=== PATIENT | female | born 1960 | race Caucasian/White ===

== ENCOUNTER 2016-08-23 10:56 | Inpatient (IN) | payer OTHER ==
[~2016-08-23] VITALS: Ht 162.6 cm; Wt 72.7 kg
[~2016-08-23 10:56] MED LIST: ARIP15TA2; CLIN-73 PO; GABA600T; HIV MEDS; TRAM50TA2 PO; TRAZ100T15; TRUV; [UNRECOGNIZED DRUG - OTHER]
[2016-08-23] MEDS ORDERED: ONDANSETRON 4 MG INJ IV STA ×2 (11:11→15:20)
[2016-08-23] MEDS ORDERED: morphine 4 MG/ML VIAL IV STA (11:11)
[2016-08-23] MEDS ORDERED: SOD CHLORIDE 0.9% 1,000 ML IV STA (11:17)
--- NOTE | 2016-08-23 11:19 | ERA ---
ER Documentation Chief Complaint Date/Time DATE: 08/23/16 TIME: 11:15 Chief Complaint BROUGHT IN VIA PRIVATE AMBULANCE FROM [facility] DUE TO RIGHT WRIST INFECTION HPI This is a 55-year-old female history of HIV and AIDS with recent surgical intervention of an MRSA abscess to the volar aspect of the right wrist at [facility] on 04 August. The patient was readmitted for a foot issue on the at [facility]. Today the patient presents with 2 days of erythema warmth and tenderness to the volar aspect wound of the right wrist. She describes moderate pain that is worse to touch, throbbing. No fevers or chills chest pain or shortness of breath abdominal pain dysuria urgency or frequency. ROS All systems reviewed and are negative except as per history of present illness. Medications Home Meds Reported Medications Nystatin (Nystatin) 100,000 Unit/1 Ml Oral.susp, 2 ML PO QID, #60 ML 08/23/16 Emtricitabine/Tenofov Alafenam (Descovy 200-25 mg Tablet) 1 Each Tablet, 1 EACH PO DAILY, TAB 08/23/16 Darunavir/Cobicistat (Prezcobix 800 mg-150 mg Tablet) 1 Each Tablet, 1 EACH PO DAILY, TAB 08/23/16 Oxycodone Hcl* (IR) (Oxycodone Hcl*) 30 Mg Tablet, 30 MG PO QID Y for PAIN, TAB 08/23/16 Valsartan* (Diovan*) 320 Mg Tablet, 320 MG PO DAILY, TAB 08/23/16 Gabapentin* (Gabapentin*) 800 Mg Tablet, 800 MG PO TID, #90 TAB 08/23/16 Omeprazole* (Omeprazole*) 20 Mg Capsule.dr, 20 MG PO DAILY, #30 CAP 08/23/16 Atenolol* (Atenolol*) 100 Mg Tablet, 100 MG PO DAILY, #30 TAB 08/23/16 Cyclobenzaprine Hcl* (Cyclobenzaprine Hcl*) 10 Mg Tablet, 10 MG PO BID, #60 TAB 08/23/16 Discontinued Reported Medications Aripiprazole* (Abilify*) 15 Mg Tablet 02/19/10 Gabapentin* (Neurontin*) 600 Mg Tablet 02/19/10 Trazodone Hcl* (Trazodone Hcl*) 100 Mg Tablet 02/19/10 [Intelles] No Conflict Check 02/18/10 Emtricitabine-Tenofovir* (Truvada*) 1 Tab Tab 02/18/10 [Hiv Meds] No Conflict Check 02/16/10 Discontinued Scripts Tramadol HCl (Tramadol HCl) 50 Mg Tablet, 50 MG PO Q6, #10 TAB Prov:IVELISSE WILCOX MD 02/08/16 Clindamycin Hcl* (Clindamycin Hcl*) 300 Mg Capsule, 600 MG PO TID for 7 Days, CAP Prov:IVELISSE WILCOX MD 02/08/16 Allergies Allergies: Coded Allergies: Penicillins (Verified Allergy, Severe, CAN'T BREATH, 08/23/16) sumatriptan (Verified Allergy, Mild, ELEVATED BLOOD PRESSURE, 08/23/16) PMhx/Soc History of Surgery: Yes (appendectomy/hysterectomy/spinal surgery) Anesthesia Reaction: No Hx Neurological Disorder: No Hx Respiratory Disorders: No Hx Cardiac Disorders: No Hx Psychiatric Problems: Yes (bipolar disease) Hx Miscellaneous Medical Probl: Yes (HIV/AIDS, umbilical cellulitis, hepatitis A, B, C) Hx Alcohol Use: No Hx Tobacco Use: No FmHx Family History: No diabetes Physical Exam Vitals Vital Signs Date Time Temp Pulse Resp B/P Pulse Ox O2 Delivery O2 Flow Rate FiO2 08/23/16 13:57 66 18 119/80 100 Room Air 08/23/16 11:47 97.8 69 22 96/55 99 Room Air 08/23/16 11:32 Nasal Cannula 2 08/23/16 11:00 97.8 67 18 97/61 90 Physical Exam General: Well developed, well nourished, no acute distress Head: Normocephalic, atraumatic. Eyes: Pupils equally reactive, EOM intact ENT: Moist mucous membranes Neck: Supple, no lymphadenopathy Respiratory: Lungs clear bilaterally, no distress Cardiovascular: RRR, no murmurs, rubs, or gallops Abdominal: Soft, non-tender, non-distended, no peritoneal signs : Deferred MSK: No edema, no unilateral swelling, 5/5 strength, skin is documented below. Soft compartments, radial, median, ulnar nerves assessed and intact of the right upper extremity Neurologic: Alert and oriented, moving all extremities, normal speech, no focal weakness, no cerebellar signs Skin: Erythema warmth and tenderness noted to the wound of the right wrist, sutures intact Psych: Normal mood Result Diagram: 08/23/16 1200 08/23/16 1250 Results 24 hrs Laboratory Tests Test 08/23/16 12:00 08/23/16 12:50 08/23/16 13:50 White Blood Count 2.210^3/ul Red Blood Count 3.4110^6/ul Hemoglobin 9.4g/dl Hematocrit 30.7% Mean Corpuscular Volume 90.0fl Mean Corpuscular Hemoglobin 27.6pg Mean Corpuscular Hemoglobin Concent 30.6g/dl Red Cell Distribution Width 14.9% Platelet Count 33655^3/UL Mean Platelet Volume 11.7fl Neutrophils % 24.5% Lymphocytes % 58.2% Monocytes % 13.2% Eosinophils % 2.7% Basophils % 0.9% Nucleated Red Blood Cells % 0.0/100WBC Neutrophils # 0.510^3/ul Lymphocytes # 1.310^3/ul Monocytes # 0.310^3/ul Eosinophils # 0.110^3/ul Basophils # 0.010^3/ul Nucleated Red Blood Cells # 0.010^3/ul Prothrombin Time 13.3Sec Prothrombin Time Ratio 1.0 INR International Normalized Ratio 1.01 Activated Partial Thromboplast Time 25.2Sec Erythrocyte Sedimentation Rate 68mm/Hr Sodium Level 138mmol/L Potassium Level 3.9mmol/L Chloride Level 103mmol/L Carbon Dioxide Level 26mmol/L Anion Gap 13 Blood Urea Nitrogen 30mg/dl Creatinine 1.29mg/dl Glucose Level 89mg/dl Lactic Acid Level 0.8mmol/L 1.1mmol/L Calcium Level 8.3mg/dl Total Bilirubin 0.1mg/dl Direct Bilirubin 0.00mg/dl Indirect Bilirubin 0.1mg/dl Aspartate Amino Transf (AST/SGOT) 26IU/L Alanine Aminotransferase (ALT/SGPT) 26IU/L Alkaline Phosphatase 379IU/L C-Reactive Protein 1.5mg/dl Total Protein 7.6g/dl Albumin 3.2g/dl Globulin 4.40g/dl Albumin/Globulin Ratio 0.72 Current Medications Medications (Trade) Dose Ordered Sig/Deric Route PRN Reason Start Time Stop Time Status Last Admin Dose Admin Vancomycin HCl 250 ml @ 125 mls/hr ONCE ONCE IVPB 08/23/16 11:30 08/23/16 13:29 DC 08/23/16 13:25 Aztreonam (Azactam 1gm/NS (Pmx)) 50 ml @ 100 mls/hr ONCE ONCE IVPB 08/23/16 11:30 08/23/16 11:59 DC 08/23/16 13:13 Morphine Sulfate (morphine) 4 mg ONCE STAT IV 08/23/16 11:11 08/23/16 11:15 DC 08/23/16 12:46 Ondansetron HCl 4 mg 4 mg ONCE STAT IV 08/23/16 11:11 08/23/16 11:15 DC 08/23/16 12:45 Sodium Chloride (NS) 1,000 ml @ 1,000 mls/hr Q1H STAT IV 08/23/16 11:17 08/23/16 12:16 DC 08/23/16 12:46 Procedures/MDM EKG, MONITORS, & DIAGNOSTIC IMAGING: X-ray right wrist: IMPRESSION: Radiologist No visualized radiographic evidence of osteomyelitis. If there is clinical suspicion for osteomyelitis, further characterization with MRI or bone scan is recommended. RPTAT: AA EKG: I reviewed and interpreted a 12-lead EKG. Rhythm: Normal sinus rhythm Ectopy: None Intervals: No abnormalities ST segments: No elevations or depressions T waves: No contiguous inversions LAB INTERPRETATION: Leukopenia, anemia, elevated CRP, normal lactic acid MEDICAL DECISION MAKING: The patient has a history of AIDS. She now has clinical signs and symptoms consistent with cellulitis to the volar aspect of the right wrist secondary to the patient's recent MRSA abscess status post surgical intervention at [facility] on August 04. The patient has no evidence of sepsis at this time however given her immunocompromise state she may not exhibit these symptoms initially. For this reason I believe the patient will benefit from laboratory analysis, blood cultures, empiric antibiotics to cover MRSA and gram-negative bacteria. The patient has a penicillin allergy. She will be started on vancomycin and aztreonam. The patient was given 1 L of saline. Sepsis screening initiated. The patient had surgery at [facility], given continuity of care would benefit this patient I believe the patient would benefit from transfer to this facility. I will reach out to the patient's surgeon, Dr. Nash. I will attempt to transfer the patient back to [facility] for continuity of care. The patient is stable for transfer. ER COURSE: The patient does not meet sepsis criteria. The patient's CRP is elevated. X- ray imaging shows no evidence of osteomyelitis. Antibiotics provided. Pain control provided. It took approximately 3.5 hours to reach out to an orthopedic surgeon. We attempted to call [facility] but they could not accept the patient without having the accepting surgeon. I was able to speak to a colleague for Dr. Saad Lowery. He will notify Dr. Nash and feels that the patient can be stabilized and admitted to [facility]. Dr. Nash has privileges. A consult order was placed in the computer. I kept the patient and/or family informed of laboratory and diagnostic imaging results throughout the emergency room course. DISPOSITION PLAN: Medical surgical admission for management of postoperative cellulitis in an immunocompromised patient CONSULTATION: Accepting care team and consultations: I discussed the current laboratory data, diagnostic imaging and emergency care provided. Admitting team: Dr. Haddad Admitting team indication: Insurance directed Consulting services: Orthopedic surgeon Dr. Nash, colleague Dr. Lowery covering Departure Diagnosis: Primary Impression: Cellulitis of right upper arm Additional Impression: History of AIDS Condition: Stable JACKELYN HOUSTON MD Aug 23, 2016 11:19
[2016-08-23] MEDS ORDERED: AZTREONAM 1 GM/NS (PMX) 50 ML IVPB ONE (11:30)
[2016-08-23] MEDS ORDERED: VANCOMYCIN 1 GM (PMX) 250 ML IVPB ONE (11:30)
[2016-08-23 11:47] VITALS: TEMP 97.8
[2016-08-23 12:16] LABS: ADD SCAN DIFF NO
[2016-08-23 12:23] LABS: ABNORMAL IP MESSAGE 1; BASOPHILS % 0.9 % (0.0-2.0); EOSINOPHILS # 0.1 10^3/ul (0.0-0.5); EOSINOPHILS % 2.7 % (0.0-7.0); HEMATOCRIT 30.7 % (37.0-47.0); HEMOGLOBIN 9.4 g/dl (12.0-16.0); LYMPHOCYTES # 1.3 10^3/ul (0.8-2.9); LYMPHOCYTES % 58.2 % (15.0-51.0); MEAN CORPUSCULAR HEMOGLOBIN 27.6 pg (29.0-33.0); MEAN CORPUSCULAR HGB CONC 30.6 g/dl (32.0-37.0); MEAN PLATELET VOLUME 11.7 fl (7.4-10.4); MONOCYTE # 0.3 10^3/ul (0.3-0.9); MONOCYTES % 13.2 % (0.0-11.0); NEUTROPHIL # 0.5 10^3/ul (1.6-7.5); NEUTROPHILS % 24.5 % (39.0-77.0); PLATELET COUNT 203 10^3/UL (140-415); RED BLOOD COUNT 3.41 10^6/ul (4.20-5.40); RED CELL DISTRIBUTION WIDTH 14.9 % (11.5-14.5); WHITE BLOOD COUNT 2.2 10^3/ul (4.8-10.8)
[2016-08-23 12:32] LABS: INR 1.01; PROTIME 13.3 Sec (12.2-14.2)
[2016-08-23 12:33] LABS: PARTIAL THROMBOPLASTIN TIME 25.2 Sec (25.0-35.0)
[2016-08-23] MEDS ORDERED: CYCL-319 PO (12:36)
[2016-08-23] MEDS ORDERED: ATEN100T PO (12:39)
[2016-08-23] MEDS ORDERED: OMEP20CA16 PO (12:39)
[2016-08-23] MEDS ORDERED: GABA-528 PO (12:39)
[2016-08-23] MEDS ORDERED: OXYC30TA PO (12:40)
[2016-08-23] MEDS ORDERED: VALS320T11 PO (12:40)
[2016-08-23] MEDS ORDERED: DARU1TAB PO (12:41)
[2016-08-23] MEDS ORDERED: EMTR1TAB16 PO (12:41)
[2016-08-23] MEDS ORDERED: NYST1000 PO (12:44)
--- NOTE | 2016-08-23 12:53 | RADRPT ---
PROCEDURE: XR Wrist 4 Views. CLINICAL INDICATION: Right wrist abscess, possible osteomyelitis. Right wrist pain TECHNIQUE: AP, oblique, scaphoid and lateral views of the right wrist were performed. COMPARISON: No prior studies are available for comparison. FINDINGS: The osseous structures are intact. No destructive bony lesions are identified. Interosseous spaces are normal. The soft tissues surrounding the wrist are grossly unremarkable. IMPRESSION: No visualized radiographic evidence of osteomyelitis. If there is clinical suspicion for osteomyelit is, further characterization with MRI or bone scan is recommended. RPTAT: AA .Terrence Musa MD, Date Time Electronically viewed and signed by .Terrence Musa MD, on 08/23/2016 12:53 .P/
[2016-08-23 13:18] LABS: ALBUMIN 3.2 g/dl (3.3-4.9)
[2016-08-23 13:19] LABS: POTASSIUM 3.9 mmol/L (3.5-5.1)
[2016-08-23 13:21] LABS: BILIRUBIN,INDIRECT 0.1 mg/dl (0-1.1); BILIRUBIN,TOTAL 0.1 mg/dl (0.2-1.3); CREATININE 1.29 mg/dl (0.44-1.00)
[2016-08-23 13:22] LABS: ALBUMIN/GLOBULIN RATIO 0.72; CALCIUM 8.3 mg/dl (8.4-10.2); TOTAL PROTEIN 7.6 g/dl (6.1-8.1)
[2016-08-23 13:24] LABS: C-REACTIVE PROTEIN 1.5 mg/dl (0.0-0.9)
[2016-08-23] MEDS ORDERED: HYDROmorphONE 1 MG/ML SYG IV STA (15:20)
[2016-08-23] MEDS ORDERED: ONDANSETRON 4 MG INJ IV PRN (15:30)
[2016-08-23] MEDS ORDERED: ACETAMINOPHEN 325 MG TAB PO PRN (15:30)
[2016-08-23 18:18] VITALS: BP 108/63; PULSE 63; RESP 20
[2016-08-23] MEDS: HYDROmorphONE 1 MG/ML SYG IV PRN ×2 (18:45→22:43)
[2016-08-23] MEDS ORDERED: VANCOMYCIN IV PER PHARMACY XX SCH (19:00)
[2016-08-23 20:19] VITALS: BP 110/68; RESP 19
--- NOTE | 2016-08-23 20:33 | HP ---
Date/Time of Note Date/Time of Note DATE: 08/23/16 TIME: 19:50 Assessment/Plan VTE Prophylaxis VTE Prophylaxis Intervention: LMWH, other Lines/Catheters IV Catheter Type (from Nrsg): Saline Lock Assessment/Plan Assessment/Plan -Cellulitis of right upper arm -Admit to [facility] floor -[facility] per pharmacy -We will get infectious disease consult - dR [place] NOTIFIED -A.m. labs, hemoglobin A1c, magnesium, phosphorous -Elevate right wrist all times - Acute Kidney Failure - D51/2 NS at 60 cc/hr - nephrology consult if not getting better -LLE edema/cellulitis - doppler venous- - elevate LLE all times - Elevated LFTs - GI consult- dr Burton/Dr Costello notified -Leukopenia - monitor labs, will get hematology consult if lab worsen -Anemia - monitor H.H - Elevated CRP - Scoliosis- sp spinal surgery - Hx Bipolar- consultant dietitian acute issue - Hx HEP A,B,C - History of AIDS - Lovenox for DVT prophylaxis - Protonix for gi prophylaxis Further recommendations depend upon patient's clinical course. Plan of care discussed with dr Haddad.staff dw Dr Haddad HPI/ROS Admit Date/Time Admit Date/Time Aug 23, 2016 at 15:20 Hx of Present Illness Chief Complaint RIGHT WRIST INFECTION HPI ROS All systems reviewed and are negative except as per history of present illness. Medications Home Meds Reported Medications Nystatin (Nystatin) 100,000 Unit/1 Ml Oral.susp, 2 ML PO QID, #60 ML 08/23/16 Emtricitabine/Tenofov Alafenam (Descovy 200-25 mg Tablet) 1 Each Tablet, 1 EACH PO DAILY, TAB 08/23/16 Darunavir/Cobicistat (Prezcobix 800 mg-150 mg Tablet) 1 Each Tablet, 1 EACH PO DAILY, TAB 08/23/16 Oxycodone Hcl* (IR) (Oxycodone Hcl*) 30 Mg Tablet, 30 MG PO QID Y for PAIN, TAB 08/23/16 Valsartan* (Diovan*) 320 Mg Tablet, 320 MG PO DAILY, TAB 08/23/16 Gabapentin* (Gabapentin*) 800 Mg Tablet, 800 MG PO TID, #90 TAB 08/23/16 Omeprazole* (Omeprazole*) 20 Mg Capsule.dr, 20 MG PO DAILY, #30 CAP 08/23/16 Atenolol* (Atenolol*) 100 Mg Tablet, 100 MG PO DAILY, #30 TAB 08/23/16 Cyclobenzaprine Hcl* (Cyclobenzaprine Hcl*) 10 Mg Tablet, 10 MG PO BID, #60 TAB 08/23/16 Discontinued Reported Medications Aripiprazole* (Abilify*) 15 Mg Tablet 02/19/10 Gabapentin* (Neurontin*) 600 Mg Tablet 02/19/10 Trazodone Hcl* (Trazodone Hcl*) 100 Mg Tablet 02/19/10 [Intelles] No Conflict Check 02/18/10 Emtricitabine-Tenofovir* (Truvada*) 1 Tab Tab 02/18/10 [Hiv Meds] No Conflict Check 02/16/10 Discontinued Scripts Tramadol HCl (Tramadol HCl) 50 Mg Tablet, 50 MG PO Q6, #10 TAB Prov:IVELISSE WILCOX MD 02/08/16 Clindamycin Hcl* (Clindamycin Hcl*) 300 Mg Capsule, 600 MG PO TID for 7 Days, CAP Prov:IVELISSE WILCOX MD 02/08/16 Allergies Allergies: Coded Allergies: Penicillins (Verified Allergy, Severe, CAN'T BREATH, 08/23/16) sumatriptan (Verified Allergy, Mild, ELEVATED BLOOD PRESSURE, 08/23/16) PMhx/Soc History of Surgery: Yes (appendectomy/hysterectomy/spinal surgery) Anesthesia Reaction: No Hx Neurological Disorder: No Hx Respiratory Disorders: No Hx Cardiac Disorders: No Hx Psychiatric Problems: Yes (bipolar disease) Hx Miscellaneous Medical Probl: Yes (HIV/AIDS, umbilical cellulitis, hepatitis A, B, C) Hx Alcohol Use: No Hx Tobacco Use: No FmHx Family History: No diabetes ROS Eyes: no complaints ENT: no complaints Respiratory: no complaints Cardiovascular: no complaints Gastrointestinal: no complaints Genitourinary: no complaints Musculoskeletal: bone/joint pain (wrist wrist, left foot) Neurologic: no complaints Lymphatic: no complaints Psychological: no complaints Immunologic: immunodeficiency PMH/Family/Social Past Medical History Past Surgical History hysterectomy/spinal surgery Past Surgical Hx: appendectomy, other Social History Smoking Status: Never smoker Exam/Review of Systems Vital Signs Vitals Vital Signs Date Time Temp Pulse Resp B/P Pulse Ox O2 Delivery O2 Flow Rate FiO2 08/23/16 18:40 Nasal Cannula 2.0 08/23/16 18:18 97.7 63 20 108/63 92 Exam Constitutional: alert Psych: nl mood/affect Eyes: nl sclera ENMT: nl external ears & nose Respiratory: clear to auscultation Cardiovascular: nl pulses Gastrointestinal: non-tender, soft Musculoskeletal: other Extremities: other (Erythema warmth and tenderness noted to the wound of the right wrist, sutures intact) Skin: other (open wounds on abdominal area) Lymph: other Labs Result Diagram: 08/23/16 1200 08/23/16 1250 Medications Medications Current Medications Atenolol (Tenormin) 100 mg DAILY PO ; Start 08/24/16 at 09:00 Cyclobenzaprine HCl (Flexeril) 10 mg BID PO ; Start 08/23/16 at 21:00 Gabapentin (Neurontin) 800 mg TID PO ; Start 08/23/16 at 21:00 Oxycodone HCl (Roxicodone) 30 mg QID PRN PO PAIN; Start 08/23/16 at 18:30 Valsartan (Diovan) 320 mg DAILY PO ; Start 08/24/16 at 09:00 Miscellaneous Information 1 each DAILY PO ; Start 08/24/16 at 09:00; Status UNV Miscellaneous Information 1 each DAILY PO ; Start 08/24/16 at 09:00; Status UNV Pantoprazole (Protonix Tab) 40 mg DAILY@06 PO ; Start 08/24/16 at 06:00 Ondansetron HCl (Zofran Inj) 4 mg Q6H PRN IV NAUSEA AND/OR VOMITING; Start at 19:00 Acetaminophen (Tylenol Tab) 650 mg Q6H PRN PO PAIN AND OR ELEVATED TEMP; Start 08/23/16 at 19:00 Enoxaparin Sodium (Lovenox) 40 mg DAILY SC ; Start 08/24/16 at 09:00 Hydromorphone HCl (Dilaudid) 1 mg Q4H PRN IV PAIN Last administered on t 18:45; Admin Dose 1 MG; Start 08/23/16 at 19:00 Nystatin 2 ml 2 ml QID PO ; Start 08/23/16 at 21:00 Vancomycin HCl 100 ml @ 100 mls/hr 21 IVPB ; Start 08/23/16 at 21:00; Stop at 23:59 Vancomycin HCl (Vancocin) 250 ml @ 125 mls/hr Q12H IVPB ; Start 08/24/16 at 09: 00 Procedures Procedures X-ray right wrist: IMPRESSION: Radiologist No visualized radiographic evidence of osteomyelitis. If there is clinical suspicion for osteomyelitis, further characterization with MRI or bone scan is recommended. EKG: Rhythm: Normal sinus rhythm Ectopy: None Intervals: No abnormalities ST segments: No elevations or depressions T waves: No contiguous inversions LAB INTERPRETATION: Leukopenia, anemia, elevated CRP, normal lactic acid JOHN HOYOS Aug 23, 2016 20:02 Ectopy: None Intervals: No abnormalities ST segments: No elevations or depressions T waves: No contiguous inversions LAB INTERPRETATION: Leukopenia, anemia, elevated CRP, normal lactic acid JOHN HOYOS Aug 23, 2016 20:02
[2016-08-23] MEDS ORDERED: NYSTATIN SUSP 100000 UNITS/ML 60 ML BTL PO SCH (21:00)
[2016-08-23] MEDS ORDERED: VANCOMYCIN 500MG/NS (PMX) 100 ML IVPB SCH (21:00)
--- NOTE | 2016-08-23 21:23 | RADRPT ---
PROCEDURE: US Lower extremity Venous. CLINICAL INDICATION: Left leg swelling TECHNIQUE: Multiple sonographic images of the left lower extremity deep venous system was obtained utilizing grayscale, color-flow, compressive sonography and doppler imaging with augmentation. The images were reviewed on a PACS workstation. COMPARISON: None. FINDINGS: There is normal compressibility and flow within the left common femoral, femoral, posterior tibial, peroneal and popliteal veins. RPTAT: AA IMPRESSION: No sonographic evidence for deep venous thrombosis. .Abimael Yao MD, MD Date Time Electronically viewed and signed by .Abimael Yao MD, on 08/23/2016 21:23 .S/
--- NOTE | 2016-08-23 21:32 | RADRPT ---
PROCEDURE: US upper extremity Venous. CLINICAL INDICATION: Right arm swelling TECHNIQUE: Multiple sonographic images of the right upper extremity venous system was obtained uti lizing grayscale, color-flow, compressive sonography and doppler imaging with augmentation. The rafat ges were reviewed on a PACS workstation. COMPARISON: None. FINDINGS: There is normal compressibility and flow within the right internal jugular vein, subclavian vein, ax illary vein, brachial, basilic, cephalic, radial and ulnar veins. RPTAT: AA IMPRESSION: No sonographic evidence for venous thrombosis. .Abimael Yao MD, MD Date Time Electronically viewed and signed by .Abimael Yao MD, on 08/23/2016 21:32 .S/
[2016-08-23] MEDS: CYCLOBENZAPRINE 10 MG TAB PO SCH (21:53)
[2016-08-23] MEDS: DOCUSATE SODIUM 100 MG CAP PO SCH (21:53)
[2016-08-23] MEDS: GABAPENTIN 400 MG CAP PO SCH (21:54)
[2016-08-23] MEDS: NYSTATIN SUSP 5 ML CUP PO SCH (21:56)
[2016-08-23] MEDS: DEXTROSE 5%-0.45% NACL 1,000 ML IV SCH (21:57)
[2016-08-24] MEDS: oxyCODONE 15 MG TAB PO PRN ×4 (00:23→22:09)
[2016-08-24] MEDS: ACETAMINOPHEN 325 MG TAB PO PRN (01:21)
[2016-08-24] MEDS ORDERED: DIPHENHYDRAMINE 50 MG INJ IV PRN (02:30)
[2016-08-24] MEDS ORDERED: HYDROCORTISONE 100 MG INJ IV ONE (02:30)
[2016-08-24] MEDS: HYDROmorphONE 1 MG/ML SYG IV PRN ×5 (03:17→23:59)
[2016-08-24 05:26] LABS: ADD SCAN DIFF NO
[2016-08-24 05:34] LABS: ABNORMAL IP MESSAGE 1; BASOPHILS % 0.5 % (0.0-2.0); EOSINOPHILS # 0.1 10^3/ul (0.0-0.5); EOSINOPHILS % 4.3 % (0.0-7.0); HEMATOCRIT 31.3 % (37.0-47.0); HEMOGLOBIN 9.8 g/dl (12.0-16.0); LYMPHOCYTES # 0.9 10^3/ul (0.8-2.9); LYMPHOCYTES % 48.4 % (15.0-51.0); MEAN CORPUSCULAR HEMOGLOBIN 27.6 pg (29.0-33.0); MEAN CORPUSCULAR HGB CONC 31.3 g/dl (32.0-37.0); MEAN CORPUSCULAR VOLUME 88.2 fl (82.0-101.0); MEAN PLATELET VOLUME 12.1 fl (7.4-10.4); MONOCYTE # 0.2 10^3/ul (0.3-0.9); NEUTROPHIL # 0.7 10^3/ul (1.6-7.5); NEUTROPHILS % 38.8 % (39.0-77.0); PLATELET COUNT 181 10^3/UL (140-415); RED BLOOD COUNT 3.55 10^6/ul (4.20-5.40); RED CELL DISTRIBUTION WIDTH 14.8 % (11.5-14.5); WHITE BLOOD COUNT 1.9 10^3/ul (4.8-10.8)
[2016-08-24 05:43] LABS: IRON 75 ug/dl (35-150)
[2016-08-24 05:47] LABS: CALCIUM 8.5 mg/dl (8.4-10.2); CREATININE 0.98 mg/dl (0.44-1.00); POTASSIUM 4.8 mmol/L (3.5-5.1)
[2016-08-24 05:52] LABS: TOTAL IRON BINDING CAPACITY 255 ug/dl (241-421)
[2016-08-24 05:59] LABS: ALBUMIN 3.1 g/dl (3.3-4.9)
[2016-08-24 06:01] LABS: BILIRUBIN,INDIRECT 0.1 mg/dl (0-1.1); BILIRUBIN,TOTAL 0.1 mg/dl (0.2-1.3)
[2016-08-24 06:02] LABS: TOTAL PROTEIN 7.4 g/dl (6.1-8.1)
[2016-08-24] MEDS: PANTOPRAZOLE (EC) 40 MG TAB PO SCH (06:21)
[2016-08-24 08:50] VITALS: BP 94/54; RESP 18
[2016-08-24] MEDS ORDERED: NON-FORMULARY/PATIENT OWN MED (Darunavir/Cobicistat (Prezcobix 800 mg-150 mg Tablet) 1 EAC XX SCH (09:00)
[2016-08-24] MEDS ORDERED: VANCOMYCIN 1 GM in NS 250 ML IVPB SCH (09:00)
[2016-08-24] MEDS ORDERED: NON-FORMULARY/PATIENT OWN MED (Emtricitabine/Tenofov Alafenam (Descovy 200-25 mg Tablet) 1 XX SCH (09:00)
[2016-08-24] MEDS ORDERED: NON-FORMULARY/PATIENT OWN MED (Omeprazole* 20 MG) PO SCH (09:00)
--- NOTE | 2016-08-24 09:08 | RADRPT ---
PROCEDURE: XR Foot 3 Views. CLINICAL INDICATION: Left foot swelling and pain TECHNIQUE: AP, oblique and lateral views of the left foot were obtained. The images were reviewed on a PACS workstation. COMPARISON: None. FINDINGS: Old, healed fifth metatarsal fracture is identified. The osseous structures appear intact. No dest ructive bony lesions are identified. Mild hallux valgus is seen. Soft tissues surrounding the foot appear unremarkable. IMPRESSION: Old, healed fifth metatarsal fracture. Hallux valgus. If there is high clinical suspicion for traumatic injury, further evaluation with CT should be consi dered. If further characterization is needed CT or MRI could be helpful. RPTAT: AA .Terrence Musa MD, Date Time Electronically viewed and signed by .Terrence Musa MD, on 08/24/2016 09:08 .P/
--- NOTE | 2016-08-24 09:11 | RADRPT ---
PROCEDURE: XR Tibia and Fibula 2 Views. CLINICAL INDICATION: Left lower leg pain and swelling. TECHNIQUE: AP and lateral views of the left tibia and fibula were obtained. COMPARISON: No prior studies are available for comparison. FINDINGS: The osseous structures are intact. No destructive bony lesions are identified. Mild narrowing of t he medial and patellofemoral joint compartments of the knee is identified. Soft tissues surrounding the tibia and fibula are unremarkable. IMPRESSION: Mild osteoarthritis in the medial and patellofemoral joint compartments of the knee. Otherwise, unremarkable exam. If there is high clinical suspicion for traumatic injury, further evaluation with CT should be consi dered. If further characterization is needed CT or MRI could be helpful. RPTAT: AA .Terrence Musa MD, Date Time Electronically viewed and signed by .Terrence Musa MD, on 08/24/2016 09:10 .P/
[2016-08-24] MEDS: CYCLOBENZAPRINE 10 MG TAB PO SCH ×2 (09:39→20:15)
[2016-08-24] MEDS: GABAPENTIN 400 MG CAP PO SCH ×3 (09:39→20:15)
[2016-08-24] MEDS: ATENOLOL 100 MG TAB PO SCH (09:40)
[2016-08-24] MEDS: DOCUSATE SODIUM 100 MG CAP PO SCH ×2 (09:40→20:15)
[2016-08-24] MEDS: VALSARTAN 160 MG TAB PO SCH (09:40)
[2016-08-24] MEDS: LINEZOLID 600 MG/D5W (PMX) 300 ML IVPB SCH ×2 (09:40→22:31)
[2016-08-24] MEDS: NYSTATIN SUSP 5 ML CUP PO SCH ×4 (09:41→20:15)
[2016-08-24] MEDS: ENOXAPARIN 40 MG/0.4 ML SYG SC SCH (09:47)
--- NOTE | 2016-08-24 10:09 | CONS ---
Date/Time of Note Date/Time of Note DATE: 08/24/16 TIME: 10:00 Assessment/Plan Assessment/Plan Chief Complaint/Hosp Course assessment/impression - persistent infection of near the surgical site of R volar wrist - HIV/AIDS, CD4<50 and detectable viral load according to Pt - recent LLL cellulitis - s/p surgery to R volar hand - h/o complicated surgical site infections of the back due to MRSA - s/p multiple back surgeries, with anterior and posterior approaches, that were complicated by MRSA infections. - HCV infection - esophageal CA - h/o thrush per Pt - h/o endometriosis, s/p BEAR-BSO - s/p appendectomy, CCY - s/p tonsillectomy, adenoidectomy - adverse reaction to vancomycin at ER - allergy to PCN and rifampin recommendations - I recommend and ordered: superficial swab of R volar hand for culture, MRSA swab, HIV viral load and CD4 count, hepatitis screen, medical records from [facility] - If Pt's viral load is detectable, we will order antiretrovial resistance testing - I recommend reconsulting her surgeon - continue linezolid (08/24/2016-) empirically - Pt agreed to call her caregiver at [facility] to bring her own supply of Descovy and Intelence for HIV. - re-start Bactrim DS once daily for pneumocystis prophylaxis. management d/w Pt and her RN Problems: Consultation Date/Type/Reason Admit Date/Time Aug 23, 2016 at 15:20 Date of Consultation: Aug 24, 2016 Type of Consultation: ID Reason for Consultation skin and soft tissue infection of R wrist, AIDS Referring Provider: JOHN HOYOS Hx of Present Illness This is a 55 yo female with AIDS, on Descovy and Intelence, who was admitted at [facility] on 08/23/2016 due to worsening warmth and swelling of R wrist. Pt had a surgery to R wrist at [facility], which was complicated by skin and soft tissue infection of the surgical site requiring I&D on 08/04/2016. Pt was readmitted at [facility] the following week for LLL cellulitis. Pt was supposed to get Bactrim bid upon discharge but did not. Pt was transferred here last night as the surgical site became more erythematous and swollen. At ER, vancomycin was started, but it was stopped as she developed erythema of the arm. Linezozlid was ordered instead. Our records show that she was taking Truvada and Intelence years ago. Based on the review of her records, Truvada was replaced by Descovy. According to her, her last CD4 count was <50 and her viral load was half a million. She admits she takes ARVs as directed. Her record also shows that she takes Bactrim DS once daily for pneumocystis prophylaxis. Pt also has had multiple back surgeries, with anterior and posterior approaches , that were complicated by MRSA infections. ALBIN Hoyos requested ID consultation on this Pt Constitutional: no complaints Eyes: no complaints ENT: no complaints Respiratory: no complaints Cardiovascular: no complaints Gastrointestinal: no complaints Genitourinary: no complaints Musculoskeletal: bone/joint pain (wrist wrist, left foot), swelling Skin: erythema (R wrist) Neurologic: no complaints Lymphatic: no complaints Psychological: nl mood/affect Immunologic: immunodeficiency Past Medical History Medical History: other (HIV/AIDS, HCV infection, esophageal CA, h/o thrush) Past Surgical History Past Surgical Hx: appendectomy, cholecystectomy, other (hysterectomy tonsillectomy, adenoidectomy, spinal surgeries) Social History Smoking Status: Never smoker Exam/Review of Systems Vital Signs Vitals Vital Signs Date Time Temp Pulse Resp B/P Pulse Ox O2 Delivery O2 Flow Rate FiO2 08/24/16 08:50 97.8 68 18 94/54 93 08/23/16 18:40 Nasal Cannula 2.0 Intake and Output 08/23/16 08/23/16 08/24/16 15:00 23:00 07:00 Intake Total 100 ml 1000 ml Balance 100 ml 1000 ml Results Result Diagram: 08/24/16 0425 08/24/16 0425 Results 24 hrs Laboratory Tests Test 08/23/16 12:00 08/23/16 12:50 08/23/16 15:45 08/23/16 19:15 White Blood Count 2.2 L Red Blood Count 3.41 L Hemoglobin 9.4 L Hematocrit 30.7 L Mean Corpuscular Volume 90.0 Mean Corpuscular Hemoglobin 27.6 L Mean Corpuscular Hemoglobin Concent 30.6 L Red Cell Distribution Width 14.9 H Platelet Count 203 Mean Platelet Volume 11.7 H Neutrophils % 24.5 L Lymphocytes % 58.2 H Monocytes % 13.2 H Eosinophils % 2.7 Basophils % 0.9 Nucleated Red Blood Cells % 0.0 Neutrophils # 0.5 L Lymphocytes # 1.3 Monocytes # 0.3 Eosinophils # 0.1 Basophils # 0.0 Nucleated Red Blood Cells # 0.0 Prothrombin Time 13.3 Prothrombin Time Ratio 1.0 INR International Normalized Ratio 1.01 Activated Partial Thromboplast Time 25.2 Erythrocyte Sedimentation Rate 68 H Sodium Level 138 Potassium Level 3.9 Chloride Level 103 Carbon Dioxide Level 26 Anion Gap 13 Blood Urea Nitrogen 30 H Creatinine 1.29 H Glucose Level 89 Lactic Acid Level 0.8 1.1 1.6 Calcium Level 8.3 L Total Bilirubin 0.1 L Direct Bilirubin 0.00 Indirect Bilirubin 0.1 Aspartate Amino Transf (AST/SGOT) 26 Alanine Aminotransferase (ALT/SGPT) 26 Alkaline Phosphatase 379 H C-Reactive Protein 1.5 H Total Protein 7.6 Albumin 3.2 L Globulin 4.40 H Albumin/Globulin Ratio 0.72 Test 08/23/16 20:55 08/24/16 04:25 Phosphorus Level 5.1 H White Blood Count 1.9 L Red Blood Count 3.55 L Hemoglobin 9.8 L Hematocrit 31.3 L Mean Corpuscular Volume 88.2 Mean Corpuscular Hemoglobin 27.6 L Mean Corpuscular Hemoglobin Concent 31.3 L Red Cell Distribution Width 14.8 H Platelet Count 181 Mean Platelet Volume 12.1 H Neutrophils % 38.8 L Lymphocytes % 48.4 Monocytes % 8.0 Eosinophils % 4.3 Basophils % 0.5 Nucleated Red Blood Cells % 0.0 Neutrophils # 0.7 L Lymphocytes # 0.9 Monocytes # 0.2 L Eosinophils # 0.1 Basophils # 0.0 Nucleated Red Blood Cells # 0.0 Sodium Level 137 Potassium Level 4.8 Chloride Level 107 Carbon Dioxide Level 26 Anion Gap 9 Blood Urea Nitrogen 26 H Creatinine 0.98 Glucose Level 124 Hemoglobin A1c 5.6 Lactic Acid Level 0.9 Calcium Level 8.5 Magnesium Level 2.2 Iron Level 75 Total Iron Binding Capacity 255 Percent Iron Saturation 29 Total Bilirubin 0.1 L Direct Bilirubin 0.00 Indirect Bilirubin 0.1 Aspartate Amino Transf (AST/SGOT) 42 Alanine Aminotransferase (ALT/SGPT) 30 Alkaline Phosphatase 406 H Total Protein 7.4 Albumin 3.1 L Medications Medications Current Medications Atenolol (Tenormin) 100 mg DAILY PO Last administered on 08/24/16 09:40; Admin Dose 100 MG; Start 08/24/16 at 09:00 Cyclobenzaprine HCl (Flexeril) 10 mg BID PO Last administered on 08/24/16 09: 39; Admin Dose 10 MG; Start 08/23/16 at 21:00 Gabapentin (Neurontin) 800 mg TID PO Last administered on 08/24/16 09:39; Admin Dose 800 MG; Start 08/23/16 at 21:00 Oxycodone HCl (Roxicodone) 30 mg QID PRN PO PAIN Last administered on 06:23; Admin Dose 30 MG; Start 08/23/16 at 18:30 Valsartan (Diovan) 320 mg DAILY PO Last administered on 08/24/16 09:40; Admin Dose 320 MG; Start 08/24/16 at 09:00 Miscellaneous Information 1 each DAILY PO ; Start 08/24/16 at 09:00; Status UNV Miscellaneous Information 1 each DAILY PO ; Start 08/24/16 at 09:00; Status UNV Pantoprazole (Protonix Tab) 40 mg DAILY@06 PO Last administered on 08/24/16 06 :21; Admin Dose 40 MG; Start 08/24/16 at 06:00 Ondansetron HCl (Zofran Inj) 4 mg Q6H PRN IV NAUSEA AND/OR VOMITING; Start at 19:00 Acetaminophen (Tylenol Tab) 650 mg Q6H PRN PO PAIN AND OR ELEVATED TEMP Last administered on 08/24/16 01:21; Admin Dose 650 MG; Start 08/23/16 at 19:00 Enoxaparin Sodium (Lovenox) 40 mg DAILY SC Last administered on 08/24/16 09:47 ; Admin Dose 40 MG; Start 08/24/16 at 09:00 Hydromorphone HCl (Dilaudid) 1 mg Q4H PRN IV PAIN Last administered on 09:36; Admin Dose 1 MG; Start 08/23/16 at 19:00 Nystatin 2 ml 2 ml QID PO Last administered on 08/24/16 09:41; Admin Dose 2 ML ; Start 08/23/16 at 21:00 Dextrose/Sodium Chloride (D5-1/2ns) 1,000 ml @ 60 mls/hr [id number] IV Last administered on 08/23/16 21:57; Admin Dose 60 MLS/HR; Start 08/23/16 at 20:00 Docusate Sodium 100 mg 100 mg BID PO Last administered on 08/24/16 09:40; Admin Dose 100 MG; Start 08/23/16 at 21:00 Linezolid (Zyvox 600mg/D5W (Pmx)) 300 ml @ 300 mls/hr Q12 IVPB Last administered on 08/24/16 09:40; Admin Dose 300 MLS/HR; Start 08/24/16 at 09:00 Diphenhydramine HCl (Benadryl) 25 mg Q6H PRN IV ITCHING Last administered on 02:19; Admin Dose 25 MG; Start 08/24/16 at 02:30 DELON TATE M.D. Aug 24, 2016 10:09
[2016-08-24] MEDS ORDERED: TRIMETHOPRIM/SULFAMETHOX (DS) TAB PO ONE (10:30)
[2016-08-24] MEDS: [UNRECOGNIZED DRUG - OTHER] XX SCH ×2 (11:00→19:00)
[2016-08-24] MEDS: DEXTROSE 5%-0.45% NACL 1,000 ML IV SCH (12:40)
--- NOTE | 2016-08-24 13:25 | CONS ---
DATE OF ADMISSION: 08/23/2016 DATE OF CONSULTATION: 08/23/2016 This is a late dictation. REASON FOR CONSULTATION: Acute kidney injury, metabolic alkalosis. REFERRING PHYSICIAN: Dr. Haddad. HISTORY OF PRESENT ILLNESS: This is a 55-year-old female who has a past medical history of AIDS on Descovy and Intelence who was admitted to [facility] on 08/23/2016 due to the worsening warmth and swelling of her right wrist. She had a surgery of right wrist at [place] which was complicated by skin a nd soft tissue infection of the surgical site requiring I and D on 08/04/2016. She was readmitted a [facility] the following week for left lower extremity cellulitis. She was supposed to get Bactri m b.i.d. upon discharge, but did not. She was transferred here. Last night, as the surgical site b ecame more erythematous and swollen. At the ER, the vancomycin was started. It was stopped as she developed erythema of the arm. Linezolid was . The patient had been taking Truvada and Intele nce years ago, based on review of the records. Truvada was replaced by Descovy. Infectious Disease has been consulted because of persistent infection of the surgical site of the right wrist, a nd renal has been consulted for acute kidney injury. The patient has a creatinine of 1.3. At the time of my evaluation there is no fever, chills, headache, dizziness, blurry vision, constipa tion. She has been complaining of right wrist pain. PAST MEDICAL HISTORY: 1. Notable for AIDS on antiretroviral therapy. 2. Recent left lower extremity cellulitis. PAST SURGICAL HISTORY: 1. Recent surgery on the right wrist at the [facility]. 2. History of a complicated surgical site infection of the back due to methicillin-resistant Staphy lococcus aureus, SCV infection. 3. Esophageal cancer. 4. History of endometriosis status post a TAHBSO. 5. History of hysterectomy, history of appendectomy, history of tonsillectomy, adenoidectomy. ALLERGIES: PENICILLIN, RIFAMPIN. SOCIAL HISTORY: No smoking, alcohol, recreational drug use. PHYSICAL EXAMINATION: VITAL SIGNS: Temperature 97.8, heart rate 68, respirations 18, blood pressure 94/50, saturation 97% on 2 liters nasal cannula. GENERAL: Awake, alert. Mild distress due to the pain. HEENT: Normal. Oropharynx clear. NECK: Supple, no JVD, no lymphadenopathy. LUNGS: Clear to auscultation. No crackles, no wheezes. HEART: S1, S2, with regular rhythm, no murmur. ABDOMEN: Soft, nontender, nondistended. Bowel sounds are present. EXTREMITIES: No clubbing, cyanosis, or edema. The patient has right wrist erythema, swelling, tend er to palpation. NEUROLOGICAL: Nonfocal, intact. PSYCHIATRIC: Appropriate affect and mood. LABORATORY DATA/DIAGNOSTIC IMAGING: WBC 2.3, hemoglobin 9.4, platelet count 203, sodium 138, potass ium 3.9, chloride 103, bicarbonate 26, BUN 30, creatinine 1.2, calcium 8.3, phosphorus 5.1 , albumin 3.1. 4. PT 13.3, PTT 25.2, INR 1.01. 5. Right wrist x-ray shows no evidence of any osteomyelitis. IMPRESSION: This is a 55-year-old female who has been admitted for infection of the surgical site o f her right wrist. Renal has consulted. 1. Acute kidney injury secondary to prerenal azotemia. 2. 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 3. History of HIV and hepatitis C. 4. Hyperphosphatemia with a phosphorus 5.1. 5. History of multiple surgeries before. 6. History of complicated surgical site infection of the back due to methicillin-resistant Staphylo coccus aureus. 7. History of multiple back surgeries. 8. History of human immunodeficiency virus AIDS with CD4 less than 50, and detectable viral load, a ccording to patient. 9. I will give the patient IV fluids, NS at 75 mL per hour and the further plan will be depending o n the patient's course. 10. IV antibiotics, has been started on aztreonam and linezolid. 11. The patient has finished IV fluids NS 1 liter and currently she is on D5 half NS at 60 mL hour. I will continue the current IV fluids. I am expecting the patient's creatinine to get better. 12. Lovenox for DVT prophylaxis and other pain medications and IV antibiotics as per the primary ca re service and infectious disease service. Once again, thank you, Dr. Haddad, for this consultation. I will continue to follow this patient along with the service. Dictated By: ELLIS EISENBERG MD, KP/RUBEN Conf#: [id number] DID#: [id number]
--- NOTE | 2016-08-24 18:25 | RADRPT ---
PROCEDURE: Right Upper Quadrant Ultrasound. CLINICAL INDICATION: cirrhosis, abnormal LFTs, history of cholecystectomy TECHNIQUE: Multiple real-time images were acquired of the patient's right upper quadrant abdomen a nd retroperitoneum utilizing a high resolution transducer. COMPARISON: None FINDINGS: The liver measures 16.1 cm, and demonstrates increased echogenicity. The main portal vein is patent with proper directional flow. There is no intrahepatic biliary ductal dilatation. The extrahepatic c ommon bile duct measures 3 mm. The gallbladder is absent.. The visualized pancreas is unremarkable. The right kidney measures 9.1 cm and demonstrates normal echotexture. There is no right renal calcul us or hydronephrosis. The visualized abdominal aorta and IVC are grossly unremarkable. IMPRESSION: Mild hepatomegaly with mild to moderate fatty infiltration. Status post cholecystectomy. Normal CBD. RPTAT: EE Physician Teresa Date Time Electronically viewed and signed by Physician Teresa on 08/24/2016 18:25 /
--- NOTE | 2016-08-24 19:13 | PN ---
Date/Time of Note Date/Time of Note DATE: 08/24/16 TIME: 19:05 Assessment/Plan VTE Prophylaxis VTE Prophylaxis Intervention: SCD's Lines/Catheters IV Catheter Type (from [facility]): Saline Lock Assessment/Plan Chief Complaint/Hosp Course Assessment and plan: -Infection of the surgical site of right wrist. Dr. Hines group is following infection disease consultation. Continue antibiotics per ID. -HIV, AIDS. Pending CD4 and viral load count. Continue antiretroviral therapy. -Hepatitis C -Status post back surgery with anterior approach with subsequent MRSA infection -History of esophageal CA -Acute kidney injury. Dr. Cruz is following in nephrology consultation. -Hypertension, continue Diovan and atenolol. Further recommendations based on clinical course. Plan of care discussed with Dr. Haddad. Problems: Subjective 24 Hr Interval Summary Free Text/Dictation Patient denies any fever chills, denies nausea vomiting, right wrist pain is well controlled. Exam/Review of Systems Vital Signs Vitals Vital Signs Date Time Temp Pulse Resp B/P Pulse Ox O2 Delivery O2 Flow Rate FiO2 08/24/16 08:50 97.8 68 18 94/54 93 08/24/16 08:45 Nasal Cannula 2.0 Intake and Output 08/23/16 08/23/16 08/24/16 15:00 23:00 07:00 Intake Total 100 ml 1000 ml Balance 100 ml 1000 ml Exam Constitutional: alert, oriented Psych: nl mood/affect, no complaints Head: atraumatic, normocephalic Eyes: nl conjunctiva ENMT: nl external ears & nose Respiratory: clear to auscultation, normal air movement Cardiovascular: nl pulses, regular rate and rhythm Gastrointestinal: non-tender, soft Musculoskeletal: nl extremities to inspection Extremities: normal pulses Neurological: UPHOLSTERY BUNDLER II-XII intact Skin: other (Right wrist wound ) Results Result Diagram: 08/24/16 0425 08/24/16 042 Results 24 hrs Laboratory Tests Test 08/23/16 19:15 08/23/16 20:55 08/24/16 04:25 Lactic Acid Level 1.6 0.9 Phosphorus Level 5.1 H White Blood Count 1.9 L Red Blood Count 3.55 L Hemoglobin 9.8 L Hematocrit 31.3 L Mean Corpuscular Volume 88.2 Mean Corpuscular Hemoglobin 27.6 L Mean Corpuscular Hemoglobin Concent 31.3 L Red Cell Distribution Width 14.8 H Platelet Count 181 Mean Platelet Volume 12.1 H Neutrophils % 38.8 L Lymphocytes % 48.4 Monocytes % 8.0 Eosinophils % 4.3 Basophils % 0.5 Nucleated Red Blood Cells % 0.0 Neutrophils # 0.7 L Lymphocytes # 0.9 Monocytes # 0.2 L Eosinophils # 0.1 Basophils # 0.0 Nucleated Red Blood Cells # 0.0 Sodium Level 137 Potassium Level 4.8 Chloride Level 107 Carbon Dioxide Level 26 Anion Gap 9 Blood Urea Nitrogen 26 H Creatinine 0.98 Glucose Level 124 Hemoglobin A1c 5.6 Calcium Level 8.5 Magnesium Level 2.2 Iron Level 75 Total Iron Binding Capacity 255 Percent Iron Saturation 29 Total Bilirubin 0.1 L Direct Bilirubin 0.00 Indirect Bilirubin 0.1 Aspartate Amino Transf (AST/SGOT) 42 Alanine Aminotransferase (ALT/SGPT) 30 Alkaline Phosphatase 406 H Total Protein 7.4 Albumin 3.1 L Medications Medications Current Medications Atenolol (Tenormin) 100 mg DAILY PO Last administered on 08/24/16 09:40; Admin Dose 100 MG; Start 08/24/16 at 09:00 Cyclobenzaprine HCl (Flexeril) 10 mg BID PO Last administered on 08/24/16 09: 39; Admin Dose 10 MG; Start 08/23/16 at 21:00 Gabapentin (Neurontin) 800 mg TID PO Last administered on 08/24/16 13:32; Admin Dose 800 MG; Start 08/23/16 at 21:00 Oxycodone HCl (Roxicodone) 30 mg QID PRN PO PAIN Last administered on 13:33; Admin Dose 30 MG; Start 08/23/16 at 18:30 Valsartan (Diovan) 320 mg DAILY PO Last administered on 08/24/16 09:40; Admin Dose 320 MG; Start 08/24/16 at 09:00 Miscellaneous Information 1 each DAILY XX ; Start 08/24/16 at 09:00; Status UNV Miscellaneous Information 1 each DAILY XX ; Start 08/24/16 at 09:00; Status UNV Pantoprazole (Protonix Tab) 40 mg DAILY@06 PO Last administered on 08/24/16 06 :21; Admin Dose 40 MG; Start 08/24/16 at 06:00 Ondansetron HCl (Zofran Inj) 4 mg Q6H PRN IV NAUSEA AND/OR VOMITING; Start at 19:00 Acetaminophen (Tylenol Tab) 650 mg Q6H PRN PO PAIN AND OR ELEVATED TEMP Last administered on 08/24/16 01:21; Admin Dose 650 MG; Start 08/23/16 at 19:00 Enoxaparin Sodium (Lovenox) 40 mg DAILY SC Last administered on 08/24/16 09:47 ; Admin Dose 40 MG; Start 08/24/16 at 09:00 Hydromorphone HCl (Dilaudid) 1 mg Q4H PRN IV PAIN Last administered on 16:12; Admin Dose 1 MG; Start 08/23/16 at 19:00 Nystatin 2 ml 2 ml QID PO Last administered on 08/24/16 13:32; Admin Dose 2 ML ; Start 08/23/16 at 21:00 Dextrose/Sodium Chloride (D5-1/2ns) 1,000 ml @ 60 mls/hr [id number] IV Last administered on 08/23/16 21:57; Admin Dose 60 MLS/HR; Start 08/23/16 at 20:00 Docusate Sodium 100 mg 100 mg BID PO Last administered on 08/24/16 09:40; Admin Dose 100 MG; Start 08/23/16 at 21:00 Linezolid (Zyvox 600mg/D5W (Pmx)) 300 ml @ 300 mls/hr Q12 IVPB Last administered on 08/24/16 09:40; Admin Dose 300 MLS/HR; Start 08/24/16 at 09:00 Diphenhydramine HCl (Benadryl) 25 mg Q6H PRN IV ITCHING Last administered on 02:19; Admin Dose 25 MG; Start 08/24/16 at 02:30 Miscellaneous Information (* Miscellaneous Pharmacy Order) 200 ea BID PO ; Start 08/24/16 at 21:00 Miscellaneous Information (* Miscellaneous Pharmacy Order) 200 ea DAILY PO ; Start 08/24/16 at 21:00 Miscellaneous Information (*Order Clarification Bulletin) MEDICATION REQUIRES CLARIFICATION: Q8H XX ; Start 08/24/16 at 11:00 KRISTEL LEVY Aug 24, 2016 19:13
--- NOTE | 2016-08-24 19:46 | CONS ---
DATE OF ADMISSION: 08/23/2016 DATE OF CONSULTATION: TYPE OF CONSULTATION: Gastroenterology. To Dr. Gary Haddad and ____, thank you for your referral. HISTORY OF PRESENT ILLNESS: The patient is a 55-year-old female with a history of AIDS on Descovy a nd Intelence, admitted on 08/23/2016 for the swelling of the right arm near the wrist. The patient had the surgery on the wrist at [facility] which was complicated by skin and so ft tissue infection requiring I and D on 08/04/2016. The patient was readmitted at [facility] for l eft lower leg cellulitis, and supposed to be getting Bactrim on discharge, but the patient did not r eceive. The GI consult was called in. The patient was then transferred to this facility because th e surgical site became more edematous and hyperemic. She was started on vancomycin, but she develop ed hyperemia, so it was stopped and changed to linezolid. The patient also was supposed to take David trim as a prophylaxis for a Pneumocystis infection. She had also multiple surgeries on her back, rupinder th anterior and posterior approach. The patient also has abnormal LFTs. She was originally told th at she was cured from hep C. She has a history of IV drug abuse and alcoholism, and has been sober for the last 10 years. PAST MEDICAL HISTORY: As described, HIV, hepatitis C virus infection, esophageal cancer and history of thrush. PAST SURGICAL HISTORY: Appendicectomy, cholecystectomy, hysterectomy, tonsillectomy, adenoidectomy, and multiple failed back surgeries. SOCIAL HISTORY: Does not smoke. PHYSICAL EXAMINATION: GENERAL: Well-built, nourished, not in distress. VITAL SIGNS: Stable. HEENT: Unremarkable. NECK: Supple, no thyromegaly, no lymphadenopathy. CARDIOVASCULAR: No murmur, gallop or click. LUNGS: Clear. ABDOMEN: Benign. EXTREMITIES: In the right arm she has got stitches near the wrist joint. The left arm where she cl aimed there was a cellulitis, it seems to have disappeared. LABORATORY DATA: WBC is 2.2 now, hematocrit is 30, platelet count is normal, alkaline phosphatase i s high, it is around 379. SGOT and SGPT were within normal limits. C-reactive protein was high 1.5 , albumin was within normal limits at 3.2, creatinine is 1.29. IMPRESSION: 1. Human immunodeficiency virus. 2. History of hepatitis C. 3. History of esophageal cancer. 4. Elevated alkaline phosphatase. 5. Anemia. 6. Cellulitis of the left lower extremity. 7. Infection of the surgical site of the right arm. 8. Failed multiple back surgeries. 9. ALLERGIC TO PENICILLIN AND RIFAMPIN. PLAN: At this point, is to continue all the medication as per the ID. We will get a sonogram of th e liver to make sure there is no space occupying lesion or biliary obstruction. We will also order acute hepatitis panel to confirm the diagnosis of hep C. I have discussed with the patient, she un derstood and has agreed. Dictated By: RAI LR MD PJ/NTS Conf#: [id number] DID#: [id number] CC: GARY HADDAD MD;*EndCC*
[2016-08-24 20:13] VITALS: BP 112/65; RESP 18
[2016-08-25 00:02] VITALS: Ht 162.6 cm; Wt 72.7 kg
[2016-08-25] MEDS: ONDANSETRON 4 MG INJ IV PRN ×2 (00:33→11:56)
[2016-08-25] MEDS: [UNRECOGNIZED DRUG - OTHER] XX SCH ×2 (01:45→11:00)
[2016-08-25] MEDS: HYDROmorphONE 1 MG/ML SYG IV PRN ×5 (05:11→23:51)
[2016-08-25] MEDS: PANTOPRAZOLE (EC) 40 MG TAB PO SCH (05:11)
[2016-08-25] MEDS: DEXTROSE 5%-0.45% NACL 1,000 ML IV SCH ×2 (05:14→18:33)
[2016-08-25 06:09] LABS: ADD SCAN DIFF NO; HAAIG REFLEX REFLEX FILED
[2016-08-25 06:23] LABS: INR 0.98
[2016-08-25 06:27] LABS: CALCIUM 8.4 mg/dl (8.4-10.2); CREATININE 0.89 mg/dl (0.44-1.00); POTASSIUM 4.2 mmol/L (3.5-5.1)
[2016-08-25 06:37] LABS: ABNORMAL IP MESSAGE 1; BASOPHILS % 0.5 % (0.0-2.0); EOSINOPHILS # 0.1 10^3/ul (0.0-0.5); EOSINOPHILS % 2.8 % (0.0-7.0); HEMATOCRIT 27.7 % (37.0-47.0); HEMOGLOBIN 8.7 g/dl (12.0-16.0); LYMPHOCYTES # 1.3 10^3/ul (0.8-2.9); LYMPHOCYTES % 61.1 % (15.0-51.0); MEAN CORPUSCULAR HEMOGLOBIN 27.7 pg (29.0-33.0); MEAN CORPUSCULAR HGB CONC 31.4 g/dl (32.0-37.0); MEAN CORPUSCULAR VOLUME 88.2 fl (82.0-101.0); MEAN PLATELET VOLUME 12.1 fl (7.4-10.4); MONOCYTE # 0.2 10^3/ul (0.3-0.9); NEUTROPHIL # 0.5 10^3/ul (1.6-7.5); NEUTROPHILS % 25.6 % (39.0-77.0); PLATELET COUNT 180 10^3/UL (140-415); RED BLOOD COUNT 3.14 10^6/ul (4.20-5.40); RED CELL DISTRIBUTION WIDTH 14.6 % (11.5-14.5); WHITE BLOOD COUNT 2.1 10^3/ul (4.8-10.8)
[2016-08-25 07:13] LABS: HEPATITIS B CORE ANTIBODY REACTIVE (NEGATIVE)
[2016-08-25] MEDS: CYCLOBENZAPRINE 10 MG TAB PO SCH ×2 (08:27→22:41)
[2016-08-25] MEDS: DOCUSATE SODIUM 100 MG CAP PO SCH ×2 (08:27→20:46)
[2016-08-25] MEDS: GABAPENTIN 400 MG CAP PO SCH ×3 (08:28→20:46)
[2016-08-25] MEDS: VALSARTAN 160 MG TAB PO SCH (08:29)
[2016-08-25 08:30] VITALS: BP 120/70; RESP 18
[2016-08-25] MEDS: LINEZOLID 600 MG/D5W (PMX) 300 ML IVPB SCH ×2 (09:19→22:26)
[2016-08-25] MEDS: NYSTATIN SUSP 5 ML CUP PO SCH ×4 (09:19→22:26)
[2016-08-25] MEDS: ATENOLOL 100 MG TAB PO SCH (09:20)
[2016-08-25] MEDS: ENOXAPARIN 40 MG/0.4 ML SYG SC SCH (09:29)
--- NOTE | 2016-08-25 10:16 | CONS ---
Date/Time of Note Date/Time of Note DATE: 08/25/16 TIME: 10:13 Assessment/Plan Assessment/Plan Chief Complaint/Hosp Course assessment/impression - persistent infection of near the surgical site of R volar wrist - HIV/AIDS, CD4<50 and detectable viral load according to Pt - recent LLL cellulitis - s/p surgery to R volar hand - h/o complicated surgical site infections of the back due to MRSA - s/p multiple back surgeries, with anterior and posterior approaches, that were complicated by MRSA infections. - HCV infection - HBV Ab+ status - esophageal CA - h/o thrush per Pt - h/o endometriosis, s/p BEAR-BSO - s/p appendectomy, CCY - s/p tonsillectomy, adenoidectomy - adverse reaction to vancomycin at ER - allergy to PCN and rifampin recommendations - pending results: superficial swab of R volar hand for culture, MRSA swab, HIV viral load and CD4 count, medical records from [place] - If Pt's viral load is detectable, we will order antiretrovial resistance testing - check hepatitis C viral load - I recommend reconsulting her surgeon - continue linezolid (08/24/2016-) empirically - continue Descovy and Intelence for HIV. - continue Bactrim DS once daily for pneumocystis prophylaxis. If CD4>200, will discontinue it management d/w Pt and her RN Problems: Consultation Date/Type/Reason Admit Date/Time Aug 23, 2016 at 15:20 Initial Consult Date 08/24/16 Type of Consultation: ID Referring Provider: JOHN HOYOS 24 HR Interval Summary Constitutional: no complaints Detailed Summary Eyes: no complaints ENT: no complaints Respiratory: no complaints Cardiovascular: no complaints Gastrointestinal: no complaints Genitourinary: no complaints Musculoskeletal: other (pain of R volar wrist) Skin: other (pain of R volar wrist) Neurologic: no complaints Exam/Review of Systems Vital Signs Vitals Vital Signs Date Time Temp Pulse Resp B/P Pulse Ox O2 Delivery O2 Flow Rate FiO2 08/25/16 08:30 97.8 66 18 120/70 94 08/24/16 08:45 Nasal Cannula 2.0 Intake and Output 08/24/16 08/24/16 08/25/16 15:00 23:00 07:00 Intake Total 1780 ml 1320 ml Balance 1780 ml 1320 ml Exam Constitutional: alert, oriented, well developed Psych: nl mood/affect, no complaints Head: atraumatic, normocephalic Eyes: nl conjunctiva, nl lids ENMT: nl external ears & nose, nl nasal mucosa & septum Neck: supple Musculoskeletal: swelling (slightly swollen R volar wrist, very TTP) Extremities: No edema Skin: rash or lesions (erythema surrounding the wound of R volar wrist) Results Result Diagram: 08/25/167 08/25/16456 Results 24 hrs Laboratory Tests Test 08/25/16 04:57 08/25/16 04:59 White Blood Count 2.1 L Red Blood Count 3.14 L Hemoglobin 8.7 L Hematocrit 27.7 L Mean Corpuscular Volume 88.2 Mean Corpuscular Hemoglobin 27.7 L Mean Corpuscular Hemoglobin Concent 31.4 L Red Cell Distribution Width 14.6 H Platelet Count 180 Mean Platelet Volume 12.1 H Neutrophils % 25.6 L Lymphocytes % 61.1 H Monocytes % 10.0 Eosinophils % 2.8 Basophils % 0.5 Nucleated Red Blood Cells % 0.0 Neutrophils # 0.5 L Lymphocytes # 1.3 Monocytes # 0.2 L Eosinophils # 0.1 Basophils # 0.0 Nucleated Red Blood Cells # 0.0 Prothrombin Time 13.0 Prothrombin Time Ratio 1.0 INR International Normalized Ratio 0.98 Sodium Level 137 Potassium Level 4.2 Chloride Level 107 Carbon Dioxide Level 25 Anion Gap 9 Blood Urea Nitrogen 19 Creatinine 0.89 Glucose Level 112 Calcium Level 8.4 Hepatitis B Surface Antigen NEGATIVE Hepatitis B Core Total Antibody REACTIVE H Hepatitis C Antibody REACTIVE H HIV (1&2) Antibody REACTIVE H Medications Medications Current Medications Atenolol (Tenormin) 100 mg DAILY PO Last administered on 08/25/16 09:20; Admin Dose 100 MG; Start 08/24/16 at 09:00 Cyclobenzaprine HCl (Flexeril) 10 mg BID PO Last administered on 08/25/16 08: 27; Admin Dose 10 MG; Start 08/23/16 at 21:00 Gabapentin (Neurontin) 800 mg TID PO Last administered on 08/25/16 08:28; Admin Dose 800 MG; Start 08/23/16 at 21:00 Oxycodone HCl (Roxicodone) 30 mg QID PRN PO PAIN Last administered on 22:09; Admin Dose 30 MG; Start 08/23/16 at 18:30 Valsartan (Diovan) 320 mg DAILY PO Last administered on 08/25/16 08:29; Admin Dose 320 MG; Start 08/24/16 at 09:00 Miscellaneous Information 1 each DAILY XX ; Start 08/24/16 at 09:00; Status UNV Miscellaneous Information 1 each DAILY XX ; Start 08/24/16 at 09:00; Status UNV Pantoprazole (Protonix Tab) 40 mg DAILY@06 PO Last administered on 08/25/16 05 :11; Admin Dose 40 MG; Start 08/24/16 at 06:00 Ondansetron HCl (Zofran Inj) 4 mg Q6H PRN IV NAUSEA AND/OR VOMITING Last administered on 08/25/16 00:33; Admin Dose 4 MG; Start 08/23/16 at 19:00 Acetaminophen (Tylenol Tab) 650 mg Q6H PRN PO PAIN AND OR ELEVATED TEMP Last administered on 08/24/16 01:21; Admin Dose 650 MG; Start 08/23/16 at 19:00 Enoxaparin Sodium (Lovenox) 40 mg DAILY SC Last administered on 08/25/16 09:29 ; Admin Dose 40 MG; Start 08/24/16 at 09:00 Hydromorphone HCl (Dilaudid) 1 mg Q4H PRN IV PAIN Last administered on 09:20; Admin Dose 1 MG; Start 08/23/16 at 19:00 Nystatin 2 ml 2 ml QID PO Last administered on 08/25/16 09:19; Admin Dose 2 ML ; Start 08/23/16 at 21:00 Dextrose/Sodium Chloride (D5-1/2ns) 1,000 ml @ 60 mls/hr [id number] IV Last administered on 08/23/16 21:57; Admin Dose 60 MLS/HR; Start 08/23/16 at 20:00 Docusate Sodium 100 mg 100 mg BID PO Last administered on 08/25/16 08:27; Admin Dose 100 MG; Start 08/23/16 at 21:00 Linezolid (Zyvox 600mg/D5W (Pmx)) 300 ml @ 300 mls/hr Q12 IVPB Last administered on 08/25/16 09:19; Admin Dose 300 MLS/HR; Start 08/24/16 at 09:00 Diphenhydramine HCl (Benadryl) 25 mg Q6H PRN IV ITCHING Last administered on 02:19; Admin Dose 25 MG; Start 08/24/16 at 02:30 Miscellaneous Information (* Miscellaneous Pharmacy Order) 200 ea BID PO ; Start 08/24/16 at 21:00 Miscellaneous Information (* Miscellaneous Pharmacy Order) 200 ea DAILY PO ; Start 08/24/16 at 21:00 Miscellaneous Information (*Order Clarification Bulletin) MEDICATION REQUIRES CLARIFICATION: Q8H XX ; Start 08/24/16 at 11:00 DELON TATE M.D. Aug 25, 2016 10:16
--- NOTE | 2016-08-25 11:18 | CONS ---
Date/Time of Note Date/Time of Note DATE: 08/25/16 TIME: 11:16 Assessment/Plan Assessment/Plan Additional Assessment/Plan 1. Acute kidney injury secondary to prerenal azotemia. 2. 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 3. History of HIV and hepatitis C. 4. Hyperphosphatemia with a phosphorus 5.1. 5. History of multiple surgeries before. 6. History of complicated surgical site infection of the back due to methicillin-resistant Staphylococcus aureus. 7. History of multiple back surgeries. 8. History of human immunodeficiency virus AIDS with CD4 less than 50, and detectable viral load, according to patient. plan: Renal function improved with IVF hydation pt has low proteinuric due to HIV will follow up no new recommendatiosn for today Consultation Date/Type/Reason Admit Date/Time Aug 23, 2016 at 15:20 Initial Consult Date 08/24/16 Type of Consultation: NEPHROLOGY Referring Provider: JOHN HOYOS 24 HR Interval Summary Free Text/Dictation renal function improved, makign good urine output Exam/Review of Systems Vital Signs Vitals Vital Signs Date Time Temp Pulse Resp B/P Pulse Ox O2 Delivery O2 Flow Rate FiO2 08/25/16 08:30 97.8 66 18 120/70 94 08/24/16 08:45 Nasal Cannula 2.0 Intake and Output 08/24/16 08/24/16 08/25/16 15:00 23:00 07:00 Intake Total 1780 ml 1320 ml Balance 1780 ml 1320 ml Exam GENERAL: Awake, alert. Mild distress due to the pain. HEENT: Normal. Oropharynx clear. NECK: Supple, no JVD, no lymphadenopathy. LUNGS: Clear to auscultation. No crackles, no wheezes. HEART: S1, S2, with regular rhythm, no murmur. ABDOMEN: Soft, nontender, nondistended. Bowel sounds are present. EXTREMITIES: No clubbing, cyanosis, or edema. The patient has right wrist erythema, swelling, tender to palpation. NEUROLOGICAL: Nonfocal, intact. PSYCHIATRIC: Appropriate affect and mood. Results Result Diagram: 08/25/16 0457 08/25/16 0457 Results 24 hrs Laboratory Tests Test 08/25/16 04:57 08/25/16 04:59 White Blood Count 2.1 L Red Blood Count 3.14 L Hemoglobin 8.7 L Hematocrit 27.7 L Mean Corpuscular Volume 88.2 Mean Corpuscular Hemoglobin 27.7 L Mean Corpuscular Hemoglobin Concent 31.4 L Red Cell Distribution Width 14.6 H Platelet Count 180 Mean Platelet Volume 12.1 H Neutrophils % 25.6 L Lymphocytes % 61.1 H Monocytes % 10.0 Eosinophils % 2.8 Basophils % 0.5 Nucleated Red Blood Cells % 0.0 Neutrophils # 0.5 L Lymphocytes # 1.3 Monocytes # 0.2 L Eosinophils # 0.1 Basophils # 0.0 Nucleated Red Blood Cells # 0.0 Prothrombin Time 13.0 Prothrombin Time Ratio 1.0 INR International Normalized Ratio 0.98 Sodium Level 137 Potassium Level 4.2 Chloride Level 107 Carbon Dioxide Level 25 Anion Gap 9 Blood Urea Nitrogen 19 Creatinine 0.89 Glucose Level 112 Calcium Level 8.4 Hepatitis B Surface Antigen NEGATIVE Hepatitis B Core Total Antibody REACTIVE H Hepatitis C Antibody REACTIVE H HIV (1&2) Antibody REACTIVE H Medications Medications Current Medications Atenolol (Tenormin) 100 mg DAILY PO Last administered on 08/25/16 09:20; Admin Dose 100 MG; Start 08/24/16 at 09:00 Cyclobenzaprine HCl (Flexeril) 10 mg BID PO Last administered on 08/25/16 08: 27; Admin Dose 10 MG; Start 08/23/16 at 21:00 Gabapentin (Neurontin) 800 mg TID PO Last administered on 08/25/16 08:28; Admin Dose 800 MG; Start 08/23/16 at 21:00 Oxycodone HCl (Roxicodone) 30 mg QID PRN PO PAIN Last administered on 22:09; Admin Dose 30 MG; Start 08/23/16 at 18:30 Valsartan (Diovan) 320 mg DAILY PO Last administered on 08/25/16 08:29; Admin Dose 320 MG; Start 08/24/16 at 09:00 Miscellaneous Information 1 each DAILY XX ; Start 08/24/16 at 09:00; Status UNV Miscellaneous Information 1 each DAILY XX ; Start 08/24/16 at 09:00; Status UNV Pantoprazole (Protonix Tab) 40 mg DAILY@06 PO Last administered on 08/25/16 05 :11; Admin Dose 40 MG; Start 08/24/16 at 06:00 Ondansetron HCl (Zofran Inj) 4 mg Q6H PRN IV NAUSEA AND/OR VOMITING Last administered on 08/25/16 00:33; Admin Dose 4 MG; Start 08/23/16 at 19:00 Acetaminophen (Tylenol Tab) 650 mg Q6H PRN PO PAIN AND OR ELEVATED TEMP Last administered on 08/24/16 01:21; Admin Dose 650 MG; Start 08/23/16 at 19:00 Enoxaparin Sodium (Lovenox) 40 mg DAILY SC Last administered on 08/25/16 09:29 ; Admin Dose 40 MG; Start 08/24/16 at 09:00 Hydromorphone HCl (Dilaudid) 1 mg Q4H PRN IV PAIN Last administered on 09:20; Admin Dose 1 MG; Start 08/23/16 at 19:00 Nystatin 2 ml 2 ml QID PO Last administered on 08/25/16 09:19; Admin Dose 2 ML ; Start 08/23/16 at 21:00 Dextrose/Sodium Chloride (D5-1/2ns) 1,000 ml @ 60 mls/hr [id number] IV Last administered on 08/23/16 21:57; Admin Dose 60 MLS/HR; Start 08/23/16 at 20:00 Docusate Sodium 100 mg 100 mg BID PO Last administered on 08/25/16 08:27; Admin Dose 100 MG; Start 08/23/16 at 21:00 Linezolid (Zyvox 600mg/D5W (Pmx)) 300 ml @ 300 mls/hr Q12 IVPB Last administered on 08/25/16 09:19; Admin Dose 300 MLS/HR; Start 08/24/16 at 09:00 Diphenhydramine HCl (Benadryl) 25 mg Q6H PRN IV ITCHING Last administered on 02:19; Admin Dose 25 MG; Start 08/24/16 at 02:30 Miscellaneous Information (* Miscellaneous Pharmacy Order) 200 ea BID PO ; Start 08/24/16 at 21:00 Miscellaneous Information (* Miscellaneous Pharmacy Order) 200 ea DAILY PO ; Start 08/24/16 at 21:00 Miscellaneous Information (*Order Clarification Bulletin) MEDICATION REQUIRES CLARIFICATION: Q8H XX ; Start 08/24/16 at 11:00 ELLIS EISENBERG MD Aug 25, 2016 11:18
[2016-08-25 11:40] VITALS: BP 120/77; RESP 20
--- NOTE | 2016-08-25 13:36 | PN ---
Date/Time of Note Date/Time of Note DATE: 08/25/16 TIME: 13:34 Assessment/Plan VTE Prophylaxis VTE Prophylaxis Intervention: SCD's Lines/Catheters IV C[facility]ter Type (from [facility] Peripheral IV Urinary Cath still in place: No Assessment/Plan Chief Complaint/Hosp Course Assessment and plan: -Infection of the surgical site of right wrist. Dr. Hines group is following infection disease consultation. Continue antibiotics per ID. Dr Nash, ortho is called. -HIV, AIDS. Pending CD4 and viral load count. Continue antiretroviral therapy. -Hepatitis C -Status post back surgery with anterior approach with subsequent MRSA infection -History of esophageal CA -Acute kidney injury. Dr. Cruz is following in nephrology consultation. -Hypertension, continue Diovan and atenolol. Further recommendations based on clinical course. Plan of care discussed with Dr. Haddad. Problems: Exam/Review of Systems Vital Signs Vitals Vital Signs Date Time Temp Pulse Resp B/P Pulse Ox O2 Delivery O2 Flow Rate FiO2 08/25/16 11:40 98.4 67 20 120/77 97 08/24/16 08:45 Nasal Cannula 2.0 Intake and Output 08/24/16 08/24/16 08/25/16 15:00 23:00 07:00 Intake Total 1780 ml 1320 ml Balance 1780 ml 1320 ml Exam Constitutional: alert, oriented Psych: nl mood/affect, no complaints Head: atraumatic, normocephalic Eyes: nl conjunctiva ENMT: nl external ears & nose Respiratory: clear to auscultation, normal air movement Cardiovascular: nl pulses, regular rate and rhythm Gastrointestinal: non-tender, soft Musculoskeletal: nl extremities to inspection Extremities: normal pulses 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 Skin: other (Right wrist wound ) Results Result Diagram: 08/25/16 0457 08/25/16 0457 Results 24 hrs Laboratory Tests Test 08/25/16 04:57 08/25/16 04:59 White Blood Count 2.1 L Red Blood Count 3.14 L Hemoglobin 8.7 L Hematocrit 27.7 L Mean Corpuscular Volume 88.2 Mean Corpuscular Hemoglobin 27.7 L Mean Corpuscular Hemoglobin Concent 31.4 L Red Cell Distribution Width 14.6 H Platelet Count 180 Mean Platelet Volume 12.1 H Neutrophils % 25.6 L Lymphocytes % 61.1 H Monocytes % 10.0 Eosinophils % 2.8 Basophils % 0.5 Nucleated Red Blood Cells % 0.0 Neutrophils # 0.5 L Lymphocytes # 1.3 Monocytes # 0.2 L Eosinophils # 0.1 Basophils # 0.0 Nucleated Red Blood Cells # 0.0 Prothrombin Time 13.0 Prothrombin Time Ratio 1.0 INR International Normalized Ratio 0.98 Sodium Level 137 Potassium Level 4.2 Chloride Level 107 Carbon Dioxide Level 25 Anion Gap 9 Blood Urea Nitrogen 19 Creatinine 0.89 Glucose Level 112 Calcium Level 8.4 Hepatitis B Surface Antigen NEGATIVE Hepatitis B Core Total Antibody REACTIVE H Hepatitis C Antibody REACTIVE H HIV (1&2) Antibody REACTIVE H Medications Medications Current Medications Atenolol (Tenormin) 100 mg DAILY PO Last administered on 08/25/16 09:20; Admin Dose 100 MG; Start 08/24/16 at 09:00 Cyclobenzaprine HCl (Flexeril) 10 mg BID PO Last administered on 08/25/16 08: 27; Admin Dose 10 MG; Start 08/23/16 at 21:00 Gabapentin (Neurontin) 800 mg TID PO Last administered on 08/25/16 08:28; Admin Dose 800 MG; Start 08/23/16 at 21:00 Oxycodone HCl (Roxicodone) 30 mg QID PRN PO PAIN Last administered on 22:09; Admin Dose 30 MG; Start 08/23/16 at 18:30 Valsartan (Diovan) 320 mg DAILY PO Last administered on 08/25/16 08:29; Admin Dose 320 MG; Start 08/24/16 at 09:00 Miscellaneous Information 1 each DAILY XX ; Start 08/24/16 at 09:00; Status UNV Miscellaneous Information 1 each DAILY XX ; Start 08/24/16 at 09:00; Status UNV Pantoprazole (Protonix Tab) 40 mg DAILY@06 PO Last administered on 08/25/16 05 :11; Admin Dose 40 MG; Start 08/24/16 at 06:00 Ondansetron HCl (Zofran Inj) 4 mg Q6H PRN IV NAUSEA AND/OR VOMITING Last administered on 08/25/16 11:56; Admin Dose 4 MG; Start 08/23/16 at 19:00 Acetaminophen (Tylenol Tab) 650 mg Q6H PRN PO PAIN AND OR ELEVATED TEMP Last administered on 08/24/16 01:21; Admin Dose 650 MG; Start 08/23/16 at 19:00 Enoxaparin Sodium (Lovenox) 40 mg DAILY SC Last administered on 08/25/16 09:29 ; Admin Dose 40 MG; Start 08/24/16 at 09:00 Hydromorphone HCl (Dilaudid) 1 mg Q4H PRN IV PAIN Last administered on 09:20; Admin Dose 1 MG; Start 08/23/16 at 19:00 Nystatin 2 ml 2 ml QID PO Last administered on 08/25/16 09:19; Admin Dose 2 ML ; Start 08/23/16 at 21:00 Dextrose/Sodium Chloride (D5-1/2ns) 1,000 ml @ 60 mls/hr [id number] IV Last administered on 08/23/16 21:57; Admin Dose 60 MLS/HR; Start 08/23/16 at 20:00 Docusate Sodium 100 mg 100 mg BID PO Last administered on 08/25/16 08:27; Admin Dose 100 MG; Start 08/23/16 at 21:00 Linezolid (Zyvox 600mg/D5W (Pmx)) 300 ml @ 300 mls/hr Q12 IVPB Last administered on 08/25/16 09:19; Admin Dose 300 MLS/HR; Start 08/24/16 at 09:00 Diphenhydramine HCl (Benadryl) 25 mg Q6H PRN IV ITCHING Last administered on 02:19; Admin Dose 25 MG; Start 08/24/16 at 02:30 Miscellaneous Information (* Miscellaneous Pharmacy Order) 200 ea BID PO ; Start 08/24/16 at 21:00 Miscellaneous Information (* Miscellaneous Pharmacy Order) 200 ea DAILY PO ; Start 08/24/16 at 21:00 Miscellaneous Information (*Order Clarification Bulletin) MEDICATION REQUIRES CLARIFICATION: Q8H XX ; Start 08/24/16 at 11:00 KRISTEL LEVY Aug 25, 2016 13:36
--- NOTE | 2016-08-25 19:23 | CONS ---
Date/Time of Note Date/Time of Note DATE: 08/25/16 TIME: 19:22 Assessment/Plan Assessment/Plan Additional Assessment/Plan IMPRESSION: 1. Human immunodeficiency virus. 2. History of hepatitis C. 3. History of esophageal cancer. 4. Elevated alkaline phosphatase. 5. Anemia. 6. Cellulitis of the left lower extremity. 7. Infection of the surgical site of the right arm. 8. Failed multiple back surgeries. 9. ALLERGIC TO PENICILLIN AND RIFAMPIN. PLAN: At this point, is to continue all the medication as per the ID. We will get a sonogram of the liver to make sure there is no space occupying lesion or biliary obstruction. We will also order acute hepatitis panel to confirm the diagnosis of hep C. Hepatitis C virus RNA by PCR method is ordered. If the viral load is high density may need treatment Consultation Date/Type/Reason Admit Date/Time Aug 25, 2016 at 12:43 Initial Consult Date 08/24/16 Type of Consultation: NEPHROLOGY Referring Provider: JOHN HOYOS 24 HR Interval Summary Constitutional: improved Exam/Review of Systems Vital Signs Vitals Vital Signs Date Time Temp Pulse Resp B/P Pulse Ox O2 Delivery O2 Flow Rate FiO2 08/25/16 11:40 98.4 67 20 120/77 97 08/24/16 08:45 Nasal Cannula 2.0 Intake and Output 08/24/16 08/24/16 08/25/16 15:00 23:00 07:00 Intake Total 1780 ml 1320 ml Balance 1780 ml 1320 ml Exam Constitutional: alert, oriented, well developed Psych: nl mood/affect, no complaints Head: atraumatic, normocephalic Eyes: EOMI, PERRL, nl conjunctiva, nl lids, nl sclera ENMT: nl external ears & nose, nl lips & teeth, nl nasal mucosa & septum Neck: non-tender, supple Respiratory: clear to auscultation, normal air movement Cardiovascular: nl pulses, regular rate and rhythm Gastrointestinal: nl liver, spleen, non-tender, soft Musculoskeletal: nl extremities to inspection, nl gait and stance Extremities: normal pulses 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, nl mental status, nl speech, nl strength Skin: nl turgor, No rash or lesions Lymph: nl lymph nodes Results Result Diagram: 08/25/16 0457 08/25/16 0457 Results 24 hrs Laboratory Tests Test 08/25/16 04:57 08/25/16 04:59 White Blood Count 2.1 L Red Blood Count 3.14 L Hemoglobin 8.7 L Hematocrit 27.7 L Mean Corpuscular Volume 88.2 Mean Corpuscular Hemoglobin 27.7 L Mean Corpuscular Hemoglobin Concent 31.4 L Red Cell Distribution Width 14.6 H Platelet Count 180 Mean Platelet Volume 12.1 H Neutrophils % 25.6 L Lymphocytes % 61.1 H Monocytes % 10.0 Eosinophils % 2.8 Basophils % 0.5 Nucleated Red Blood Cells % 0.0 Neutrophils # 0.5 L Lymphocytes # 1.3 Monocytes # 0.2 L Eosinophils # 0.1 Basophils # 0.0 Nucleated Red Blood Cells # 0.0 Prothrombin Time 13.0 Prothrombin Time Ratio 1.0 INR International Normalized Ratio 0.98 Sodium Level 137 Potassium Level 4.2 Chloride Level 107 Carbon Dioxide Level 25 Anion Gap 9 Blood Urea Nitrogen 19 Creatinine 0.89 Glucose Level 112 Calcium Level 8.4 Hepatitis B Surface Antigen NEGATIVE Hepatitis B Core Total Antibody REACTIVE H Hepatitis C Antibody REACTIVE H HIV (1&2) Antibody REACTIVE H Medications Medications Current Medications Atenolol (Tenormin) 100 mg DAILY PO Last administered on 08/25/16 09:20; Admin Dose 100 MG; Start 08/24/16 at 09:00 Cyclobenzaprine HCl (Flexeril) 10 mg BID PO Last administered on 08/25/16 08: 27; Admin Dose 10 MG; Start 08/23/16 at 21:00 Gabapentin (Neurontin) 800 mg TID PO Last administered on 08/25/16 14:43; Admin Dose 800 MG; Start 08/23/16 at 21:00 Oxycodone HCl (Roxicodone) 30 mg QID PRN PO PAIN Last administered on 22:09; Admin Dose 30 MG; Start 08/23/16 at 18:30 Valsartan (Diovan) 320 mg DAILY PO Last administered on 08/25/16 08:29; Admin Dose 320 MG; Start 08/24/16 at 09:00 Pantoprazole (Protonix Tab) 40 mg DAILY@06 PO Last administered on 08/25/16 05 :11; Admin Dose 40 MG; Start 08/24/16 at 06:00 Ondansetron HCl (Zofran Inj) 4 mg Q6H PRN IV NAUSEA AND/OR VOMITING Last administered on 08/25/16 11:56; Admin Dose 4 MG; Start 08/23/16 at 19:00 Acetaminophen (Tylenol Tab) 650 mg Q6H PRN PO PAIN AND OR ELEVATED TEMP Last administered on 08/24/16 01:21; Admin Dose 650 MG; Start 08/23/16 at 19:00 Enoxaparin Sodium (Lovenox) 40 mg DAILY SC Last administered on 08/25/16 09:29 ; Admin Dose 40 MG; Start 08/24/16 at 09:00 Hydromorphone HCl (Dilaudid) 1 mg Q4H PRN IV PAIN Last administered on 18:38; Admin Dose 1 MG; Start 08/23/16 at 19:00 Nystatin 2 ml 2 ml QID PO Last administered on 08/25/16 14:43; Admin Dose 2 ML ; Start 08/23/16 at 21:00 Dextrose/Sodium Chloride (D5-1/2ns) 1,000 ml @ 60 mls/hr [id number] IV Last administered on 08/25/16 18:33; Admin Dose 60 MLS/HR; Start 08/23/16 at 20:00 Docusate Sodium 100 mg 100 mg BID PO Last administered on 08/25/16 08:27; Admin Dose 100 MG; Start 08/23/16 at 21:00 Linezolid (Zyvox 600mg/D5W (Pmx)) 300 ml @ 300 mls/hr Q12 IVPB Last administered on 08/25/16 09:19; Admin Dose 300 MLS/HR; Start 08/24/16 at 09:00 Diphenhydramine HCl (Benadryl) 25 mg Q6H PRN IV ITCHING Last administered on 02:19; Admin Dose 25 MG; Start 08/24/16 at 02:30 Non-Formulary Medication 1 ea DAILY PO ; Start 08/26/16 at 09:00 Non-Formulary Medication 1 ea DAILY PO ; Start 08/26/16 at 09:00 RAI LR MD Aug 25, 2016 19:23
[2016-08-25 19:41] VITALS: BP 127/80; RESP 18
[2016-08-25] MEDS: ETRAVIRINE 100 MG TABLET PO SCH (20:46)
[2016-08-25] MEDS: oxyCODONE 15 MG TAB PO PRN (20:47)
[2016-08-26] MEDS: HYDROmorphONE 1 MG/ML SYG IV PRN ×4 (04:01→19:57)
[2016-08-26] MEDS: PANTOPRAZOLE (EC) 40 MG TAB PO SCH (05:55)
[2016-08-26] MEDS: ACETAMINOPHEN 325 MG TAB PO PRN (08:23)
[2016-08-26 08:29] VITALS: BP 111/62; PULSE 73; RESP 18
[2016-08-26] MEDS: DESCOVY PO SCH (09:00)
[2016-08-26] MEDS: NYSTATIN SUSP 5 ML CUP PO SCH ×4 (09:02→21:22)
[2016-08-26] MEDS: PREZCOBIX PO SCH (09:02)
[2016-08-26] MEDS: GABAPENTIN 400 MG CAP PO SCH ×3 (09:03→21:22)
[2016-08-26] MEDS: CYCLOBENZAPRINE 10 MG TAB PO SCH ×2 (09:04→21:22)
[2016-08-26] MEDS: DOCUSATE SODIUM 100 MG CAP PO SCH ×2 (09:04→21:22)
[2016-08-26] MEDS: ETRAVIRINE 100 MG TABLET PO SCH ×2 (09:04→21:22)
[2016-08-26] MEDS: ATENOLOL 100 MG TAB PO SCH (09:06)
[2016-08-26] MEDS: ENOXAPARIN 40 MG/0.4 ML SYG SC SCH (09:12)
[2016-08-26] MEDS: LINEZOLID 600 MG/D5W (PMX) 300 ML IVPB SCH ×2 (11:02→21:21)
[2016-08-26] MEDS: VALSARTAN 160 MG TAB PO SCH (11:07)
[2016-08-26] MEDS: ONDANSETRON 4 MG INJ IV PRN (11:52)
[2016-08-26] MEDS: DEXTROSE 5%-0.45% NACL 1,000 ML IV SCH ×2 (13:25→14:40)
--- NOTE | 2016-08-26 14:15 | CONS ---
Date/Time of Note Date/Time of Note DATE: 08/26/16 TIME: 14:14 Assessment/Plan Assessment/Plan Additional Assessment/Plan 1. Acute kidney injury secondary to prerenal azotemia. 2. 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 3. History of HIV and hepatitis C. 4. Hyperphosphatemia with a phosphorus 5.1. 5. History of multiple surgeries before. 6. History of complicated surgical site infection of the back due to methicillin-resistant Staphylococcus aureus. 7. History of multiple back surgeries. 8. History of human immunodeficiency virus AIDS with CD4 less than 50, and detectable viral load, according to patient. plan: Renal function improved with IVF hydation pt has low proteinuric due to HIV will follow up s/p GI consult Consultation Date/Type/Reason Admit Date/Time Aug 25, 2016 at 12:43 Initial Consult Date 08/24/16 Type of Consultation: NEPHROLOGY Reason for Consultation Acute kidney injury Referring Provider: JOHN HOYOS 24 HR Interval Summary Free Text/Dictation Stable Cr, stable BP today Exam/Review of Systems Vital Signs Vitals Vital Signs Date Time Temp Pulse Resp B/P Pulse Ox O2 Delivery O2 Flow Rate FiO2 08/26/16 08:29 98.0 73 18 111/62 96 Room Air 08/24/16 08:45 2.0 Intake and Output 08/25/16 08/25/16 08/26/16 15:00 23:00 07:00 Intake Total 520 ml 1320 ml Output Total 0 ml Balance 520 ml 1320 ml Exam GENERAL: Awake, alert. Mild distress due to the pain. HEENT: Normal. Oropharynx clear. NECK: Supple, no JVD, no lymphadenopathy. LUNGS: Clear to auscultation. No crackles, no wheezes. HEART: S1, S2, with regular rhythm, no murmur. ABDOMEN: Soft, nontender, nondistended. Bowel sounds are present. EXTREMITIES: No clubbing, cyanosis, or edema. The patient has right wrist erythema, swelling, tender to palpation. NEUROLOGICAL: Nonfocal, intact. PSYCHIATRIC: Appropriate affect and mood. Results Result Diagram: 08/25/16 0457 08/25/16 0457 Medications Medications Current Medications Atenolol (Tenormin) 100 mg DAILY PO Last administered on 08/26/16t 09:06; Admin Dose 100 MG; Start 08/24/16 at 09:00 Cyclobenzaprine HCl (Flexeril) 10 mg BID PO Last administered on 08/26/16 09: 04; Admin Dose 10 MG; Start 08/23/16 at 21:00 Gabapentin (Neurontin) 800 mg TID PO Last administered on 08/26/16 13:22; Admin Dose 800 MG; Start 08/23/16 at 21:00 Oxycodone HCl (Roxicodone) 30 mg QID PRN PO PAIN Last administered on 20:47; Admin Dose 30 MG; Start 08/23/16 at 18:30 Valsartan (Diovan) 320 mg DAILY PO Last administered on 08/26/16 11:07; Admin Dose 320 MG; Start 08/24/16 at 09:00 Pantoprazole (Protonix Tab) 40 mg DAILY@06 PO Last administered on 08/26/16 05 :55; Admin Dose 40 MG; Start 08/24/16 at 06:00 Ondansetron HCl (Zofran Inj) 4 mg Q6H PRN IV NAUSEA AND/OR VOMITING Last administered on 08/26/16 11:52; Admin Dose 4 MG; Start 08/23/16 at 19:00 Acetaminophen (Tylenol Tab) 650 mg Q6H PRN PO PAIN AND OR ELEVATED TEMP Last administered on 08/26/16 08:23; Admin Dose 650 MG; Start 08/23/16 at 19:00 Enoxaparin Sodium (Lovenox) 40 mg DAILY SC Last administered on 08/26/16 09:12 ; Admin Dose 40 MG; Start 08/24/16 at 09:00 Hydromorphone HCl (Dilaudid) 1 mg Q4H PRN IV PAIN Last administered on 09:13; Admin Dose 1 MG; Start 08/23/16 at 19:00 Nystatin 2 ml 2 ml QID PO Last administered on 08/26/16 13:22; Admin Dose 2 ML ; Start 08/23/16 at 21:00 Dextrose/Sodium Chloride (D5-1/2ns) 1,000 ml @ 60 mls/hr [id number] IV Last administered on 08/26/16 13:25; Admin Dose 60 MLS/HR; Start 08/23/16 at 20:00 Docusate Sodium 100 mg 100 mg BID PO Last administered on 08/26/16 09:04; Admin Dose 100 MG; Start 08/23/16 at 21:00 Linezolid (Zyvox 600mg/D5W (Pmx)) 300 ml @ 300 mls/hr Q12 IVPB Last administered on 08/26/16 11:02; Admin Dose 300 MLS/HR; Start 08/24/16 at 09:00 Diphenhydramine HCl (Benadryl) 25 mg Q6H PRN IV ITCHING Last administered on 02:19; Admin Dose 25 MG; Start 08/24/16 at 02:30 Non-Formulary Medication 1 ea DAILY PO Last administered on 08/26/16 09:00; Admin Dose 1 EA; Start 08/26/16 at 09:00 Non-Formulary Medication 1 ea DAILY PO Last administered on 08/26/16 09:02; Admin Dose 1 EA; Start 08/26/16 at 09:00 ELLIS EISENBERG MD Aug 26, 2016 14:15
[2016-08-26 14:33] LABS: LYMPHOCYTE - % CD4 (HELPER) 16 % (30-61); LYMPHOCYTE - %CD8 (SUPPRESSOR) 67 % (12-42); LYMPHOCYTE - ABSOLUTE CD4 142 cells/uL (490-1740); LYMPHOCYTE - ABSOLUTE CD8 606 cells/uL (180-1170); LYMPHOCYTE - CD4/CD8 RATIO 0.24 (0.86-5.00)
--- NOTE | 2016-08-26 15:02 | PN ---
Date/Time of Note Date/Time of Note DATE: 08/26/16 TIME: 14:55 Assessment/Plan VTE Prophylaxis VTE Prophylaxis Intervention: SCD's Lines/Catheters [facility] (from [facility] Peripheral IV Central line still needed: Yes Urinary Cath still in place: No Assessment/Plan Chief Complaint/Hosp Course Assessment and plan: -Infection of the surgical site of right wrist. Dr. Hines group is following infection disease consultation. - S/p recent surgical intervention of an MRSA abscess to the volar aspect of the right wrist at [place] on 04 August by Moe Russo. -HIV, AIDS. Pending CD4 and viral load count. Continue antiretroviral therapy. -Hepatitis C -Status post back surgery with anterior approach with subsequent MRSA infection -History of esophageal CA -Acute kidney injury. Dr. Cruz is following in nephrology consultation. -Hypertension, continue Diovan and atenolol. Further recommendations based on clinical course. Plan of care discussed with Dr. Haddad. Problems: Subjective 24 Hr Interval Summary Free Text/Dictation Patient's complains of nausea, denies any vomiting. Exam/Review of Systems Vital Signs Vitals Vital Signs Date Time Temp Pulse Resp B/P Pulse Ox O2 Delivery O2 Flow Rate FiO2 08/26/16 08:29 98.0 73 18 111/62 96 Room Air 08/24/16 08:45 2.0 Intake and Output 08/25/16 08/25/16 08/26/16 15:00 23:00 07:00 Intake Total 520 ml 1320 ml Output Total 0 ml Balance 520 ml 1320 ml Exam Constitutional: alert, oriented Psych: nl mood/affect, no complaints Head: atraumatic, normocephalic Eyes: nl conjunctiva ENMT: nl external ears & nose Respiratory: clear to auscultation, normal air movement Cardiovascular: nl pulses, regular rate and rhythm Gastrointestinal: non-tender, soft Musculoskeletal: nl extremities to inspection Extremities: normal pulses Neurological: [employer] II-XII intact Skin: other (right wrist surgical incision intact with sutures, right wrist wound ) Results Result Diagram: 08/25/167 08/25/16 0457 Medications Medications Current Medications Atenolol (Tenormin) 100 mg DAILY PO Last administered on 08/26/16t 09:06; Admin Dose 100 MG; Start 08/24/16 at 09:00 Cyclobenzaprine HCl (Flexeril) 10 mg BID PO Last administered on 08/26/16 09: 04; Admin Dose 10 MG; Start 08/23/16 at 21:00 Gabapentin (Neurontin) 800 mg TID PO Last administered on 08/26/16 13:22; Admin Dose 800 MG; Start 08/23/16 at 21:00 Oxycodone HCl (Roxicodone) 30 mg QID PRN PO PAIN Last administered on 20:47; Admin Dose 30 MG; Start 08/23/16 at 18:30 Valsartan (Diovan) 320 mg DAILY PO Last administered on 08/26/16 11:07; Admin Dose 320 MG; Start 08/24/16 at 09:00 Pantoprazole (Protonix Tab) 40 mg DAILY@06 PO Last administered on 08/26/16 05 :55; Admin Dose 40 MG; Start 08/24/16 at 06:00 Ondansetron HCl (Zofran Inj) 4 mg Q6H PRN IV NAUSEA AND/OR VOMITING Last administered on 08/26/16 11:52; Admin Dose 4 MG; Start 08/23/16 at 19:00 Acetaminophen (Tylenol Tab) 650 mg Q6H PRN PO PAIN AND OR ELEVATED TEMP Last administered on 08/26/16 08:23; Admin Dose 650 MG; Start 08/23/16 at 19:00 Enoxaparin Sodium (Lovenox) 40 mg DAILY SC Last administered on 08/26/16 09:12 ; Admin Dose 40 MG; Start 08/24/16 at 09:00 Hydromorphone HCl (Dilaudid) 1 mg Q4H PRN IV PAIN Last administered on 14:40; Admin Dose 1 MG; Start 08/23/16 at 19:00 Nystatin 2 ml 2 ml QID PO Last administered on 08/26/16 13:22; Admin Dose 2 ML ; Start 08/23/16 at 21:00 Dextrose/Sodium Chloride (D5-1/2ns) 1,000 ml @ 60 mls/hr [id number] IV Last administered on 08/26/16 13:25; Admin Dose 60 MLS/HR; Start 08/23/16 at 20:00 Docusate Sodium 100 mg 100 mg BID PO Last administered on 08/26/16 09:04; Admin Dose 100 MG; Start 08/23/16 at 21:00 Linezolid (Zyvox 600mg/D5W (Pmx)) 300 ml @ 300 mls/hr Q12 IVPB Last administered on 08/26/16 11:02; Admin Dose 300 MLS/HR; Start 08/24/16 at 09:00 Diphenhydramine HCl (Benadryl) 25 mg Q6H PRN IV ITCHING Last administered on 02:19; Admin Dose 25 MG; Start 08/24/16 at 02:30 Non-Formulary Medication 1 ea DAILY PO Last administered on 08/26/16 09:00; Admin Dose 1 EA; Start 08/26/16 at 09:00 Non-Formulary Medication 1 ea DAILY PO Last administered on 08/26/16 09:02; Admin Dose 1 EA; Start 08/26/16 at 09:00 KRISTEL LEVY Aug 26, 2016 15:02
[2016-08-26] MEDS: oxyCODONE 15 MG TAB PO PRN (15:35)
--- NOTE | 2016-08-26 16:59 | CONS ---
Date/Time of Note Date/Time of Note DATE: 08/26/16 TIME: 16:56 Assessment/Plan Assessment/Plan Additional Assessment/Plan Additional Assessment/Plan IMPRESSION: 1. Human immunodeficiency virus. 2. History of hepatitis C. 3. History of esophageal cancer. 4. Elevated alkaline phosphatase. 5. Anemia. 6. Cellulitis of the left lower extremity. 7. Infection of the surgical site of the right arm. 8. Failed multiple back surgeries. 9. ALLERGIC TO PENICILLIN AND RIFAMPIN. 10. Right upper quadrant pain, rule out bile duct stone PLAN: At this point, is to continue all the medication as per the ID. We will get a sonogram of the liver to make sure there is no space occupying lesion or biliary obstruction. We will also order acute hepatitis panel to confirm the diagnosis of hep C. Hepatitis C virus RNA by PCR method is ordered. If the viral load is high ,then may need treatment Patient needs stat MRCP. Discussed with the patient and also with Dr. Haddad Consultation Date/Type/Reason Admit Date/Time Aug 25, 2016 at 12:43 Initial Consult Date 08/24/16 Type of Consultation: NEPHROLOGY Referring Provider: JOHN HOYOS 24 HR Interval Summary Free Text/Dictation Patient complains of right upper quadrant pain, excruciating in nature. Pain is associated with nausea and vomiting. Exam/Review of Systems Vital Signs Vitals Vital Signs Date Time Temp Pulse Resp B/P Pulse Ox O2 Delivery O2 Flow Rate FiO2 08/26/16 08:29 98.0 73 18 111/62 96 Room Air 08/24/16 08:45 2.0 Intake and Output 08/25/16 08/25/16 08/26/16 15:00 23:00 07:00 Intake Total 520 ml 1320 ml Output Total 0 ml Balance 520 ml 1320 ml Exam Head: atraumatic, normocephalic Eyes: EOMI, PERRL, nl conjunctiva, nl lids, nl sclera ENMT: nl external ears & nose, nl lips & teeth, nl nasal mucosa & septum Neck: non-tender, supple Respiratory: clear to auscultation, normal air movement Cardiovascular: nl pulses, regular rate and rhythm Gastrointestinal: tender (Tenderness right upper quadrant. No mass felt per abdomen) Results Result Diagram: 08/25/16 0457 08/25/16 0457 Medications Medications Current Medications Atenolol (Tenormin) 100 mg DAILY PO Last administered on 08/26/16 09:06; Admin Dose 100 MG; Start 08/24/16 at 09:00 Cyclobenzaprine HCl (Flexeril) 10 mg BID PO Last administered on 08/26/16 09: 04; Admin Dose 10 MG; Start 08/23/16 at 21:00 Gabapentin (Neurontin) 800 mg TID PO Last administered on 08/26/16 13:22; Admin Dose 800 MG; Start 08/23/16 at 21:00 Oxycodone HCl (Roxicodone) 30 mg QID PRN PO PAIN Last administered on 15:35; Admin Dose 30 MG; Start 08/23/16 at 18:30 Valsartan (Diovan) 320 mg DAILY PO Last administered on 08/26/16 11:07; Admin Dose 320 MG; Start 08/24/16 at 09:00 Pantoprazole (Protonix Tab) 40 mg DAILY@06 PO Last administered on 08/26/16 05 :55; Admin Dose 40 MG; Start 08/24/16 at 06:00 Ondansetron HCl (Zofran Inj) 4 mg Q6H PRN IV NAUSEA AND/OR VOMITING Last administered on 08/26/16 11:52; Admin Dose 4 MG; Start 08/23/16 at 19:00 Acetaminophen (Tylenol Tab) 650 mg Q6H PRN PO PAIN AND OR ELEVATED TEMP Last administered on 08/26/16 08:23; Admin Dose 650 MG; Start 08/23/16 at 19:00 Enoxaparin Sodium (Lovenox) 40 mg DAILY SC Last administered on 08/26/16 09:12 ; Admin Dose 40 MG; Start 08/24/16 at 09:00 Hydromorphone HCl (Dilaudid) 1 mg Q4H PRN IV PAIN Last administered on 14:40; Admin Dose 1 MG; Start 08/23/16 at 19:00 Nystatin 2 ml 2 ml QID PO Last administered on 08/26/16 13:22; Admin Dose 2 ML ; Start 08/23/16 at 21:00 Dextrose/Sodium Chloride (D5-1/2ns) 1,000 ml @ 60 mls/hr [id number] IV Last administered on 08/26/16 13:25; Admin Dose 60 MLS/HR; Start 08/23/16 at 20:00 Docusate Sodium 100 mg 100 mg BID PO Last administered on 08/26/16 09:04; Admin Dose 100 MG; Start 08/23/16 at 21:00 Linezolid (Zyvox 600mg/D5W (Pmx)) 300 ml @ 300 mls/hr Q12 IVPB Last administered on 08/26/16 11:02; Admin Dose 300 MLS/HR; Start 08/24/16 at 09:00 Diphenhydramine HCl (Benadryl) 25 mg Q6H PRN IV ITCHING Last administered on 02:19; Admin Dose 25 MG; Start 08/24/16 at 02:30 Non-Formulary Medication 1 ea DAILY PO Last administered on 08/26/16 09:00; Admin Dose 1 EA; Start 08/26/16 at 09:00 Non-Formulary Medication 1 ea DAILY PO Last administered on 08/26/16 09:02; Admin Dose 1 EA; Start 08/26/16 at 09:00 RAI LR MD Aug 26, 2016 16:59
--- NOTE | 2016-08-26 17:08 | PN ---
DATE: 08/26/2016 ADDENDUM The patient 3 hrs ago started having nausea and right upper quadrant pain. The patient was given Zofran and was also given 1 mg of Dilaudid. I spoke with Dr. Costello from GI standpoint and due to elevated alkaline phosphatase and history of cholecystectomy, we will order MRCP. We will continue to follow. Dictated By: GARY MARTINO/RUBEN Conf#: [id number] DID#: [id number] MTDD
[2016-08-26 20:06] VITALS: BP 147/83; RESP 20
[2016-08-27] MEDS: HYDROmorphONE 1 MG/ML SYG IV PRN ×5 (00:02→22:22)
[2016-08-27] MEDS: PANTOPRAZOLE (EC) 40 MG TAB PO SCH (05:22)
[2016-08-27] MEDS: DEXTROSE 5%-0.45% NACL 1,000 ML IV SCH ×2 (05:22→20:26)
[2016-08-27 06:16] LABS: ABNORMAL IP MESSAGE 1; ADD SCAN DIFF NO; BASOPHILS % 0.4 % (0.0-2.0); EOSINOPHILS # 0.1 10^3/ul (0.0-0.5); EOSINOPHILS % 3.9 % (0.0-7.0); HEMATOCRIT 29.5 % (37.0-47.0); HEMOGLOBIN 9.2 g/dl (12.0-16.0); LYMPHOCYTES # 1.3 10^3/ul (0.8-2.9); LYMPHOCYTES % 55.5 % (15.0-51.0); MEAN CORPUSCULAR HEMOGLOBIN 27.6 pg (29.0-33.0); MEAN CORPUSCULAR HGB CONC 31.2 g/dl (32.0-37.0); MEAN CORPUSCULAR VOLUME 88.6 fl (82.0-101.0); MEAN PLATELET VOLUME 11.5 fl (7.4-10.4); MONOCYTE # 0.3 10^3/ul (0.3-0.9); MONOCYTES % 12.2 % (0.0-11.0); NEUTROPHIL # 0.6 10^3/ul (1.6-7.5); PLATELET COUNT 165 10^3/UL (140-415); RED BLOOD COUNT 3.33 10^6/ul (4.20-5.40); RED CELL DISTRIBUTION WIDTH 14.8 % (11.5-14.5); WHITE BLOOD COUNT 2.3 10^3/ul (4.8-10.8)
[2016-08-27 06:40] LABS: ALBUMIN 3.1 g/dl (3.3-4.9); ALBUMIN/GLOBULIN RATIO 0.81; CALCIUM 8.5 mg/dl (8.4-10.2); CREATININE 1.06 mg/dl (0.44-1.00); POTASSIUM 3.7 mmol/L (3.5-5.1); TOTAL PROTEIN 6.9 g/dl (6.1-8.1)
[2016-08-27 08:18] VITALS: BP 104/69; RESP 18
--- NOTE | 2016-08-27 09:13 | RADRPT ---
PROCEDURE: MRCP without contrast. CLINICAL INDICATION: Right upper quadrant abdominal pain. TECHNIQUE: Routine MRCP was obtained without the administration of intravenous contrast. COMPARISON: Ultrasound, 08/24/2016. FINDINGS: History of prior cholecystectomy with a nonspecific fluid collection/cystic structure identified in the gallbladder fossa, measuring approximately 5.4 x 3.7 cm in the axial plane. There is at least mild to moderate intra and extrahepatic bile duct dilatation with common bile duct measuring up to 13 mm in maximal transverse diameter. There is no filling defect or choledocholith iasis. There is no biliary stricture. Pancreatic divisum is present. There is extensive susceptibility artifact arising from posterior lumbar fusion device. IMPRESSION: Indeterminate moderate biliary dilatation without filling defect or choledocholithiasis. If correla tion with LFTs suggest cholestasis, recommend ERCP as an ampullary lesion/stenosis is not excluded. Pancreatic divisum. Indeterminate cystic structure versus loculated fluid collection in the gallbladder fossa in the con text of a known history of prior cholecystectomy. Recommend contrast enhanced CT of the abdomen for further assessment. RPTAT: EE .Fahad Washburn MD, Date Time Electronically viewed and signed by .Fahad Washburn MD, on 08/27/2016 09:17 .C/
[2016-08-27] MEDS: LINEZOLID 600 MG/D5W (PMX) 300 ML IVPB SCH ×2 (10:15→20:25)
[2016-08-27] MEDS: CYCLOBENZAPRINE 10 MG TAB PO SCH ×2 (10:16→20:20)
[2016-08-27] MEDS: ATENOLOL 100 MG TAB PO SCH (10:16)
[2016-08-27] MEDS: DOCUSATE SODIUM 100 MG CAP PO SCH ×2 (10:17→20:20)
[2016-08-27] MEDS: ETRAVIRINE 100 MG TABLET PO SCH ×2 (10:17→20:20)
[2016-08-27] MEDS: VALSARTAN 160 MG TAB PO SCH (10:17)
[2016-08-27] MEDS: GABAPENTIN 400 MG CAP PO SCH ×3 (10:18→20:20)
[2016-08-27] MEDS: NYSTATIN SUSP 5 ML CUP PO SCH ×4 (10:18→20:20)
[2016-08-27] MEDS: DESCOVY PO SCH (10:19)
[2016-08-27] MEDS: PREZCOBIX PO SCH (10:19)
[2016-08-27] MEDS: ENOXAPARIN 40 MG/0.4 ML SYG SC SCH (10:30)
[2016-08-27] MEDS: ONDANSETRON 4 MG INJ IV PRN (10:48)
[2016-08-27] MEDS: oxyCODONE 15 MG TAB PO PRN ×2 (10:51→20:25)
--- NOTE | 2016-08-27 11:06 | PN ---
Date/Time of Note Date/Time of Note DATE: 08/27/16 TIME: 11:04 Assessment/Plan VTE Prophylaxis VTE Prophylaxis Intervention: other Lines/Catheters IV [facility]ter Type (from [facility]): Peripheral IV Urinary Cath still in place: No Assessment/Plan Assessment/Plan -Elevated liver functions-plan for MRCP today -Infection of the surgical site of right wrist. Dr. Hines group is following infection disease consultation. - S/p recent surgical intervention of an MRSA abscess to the volar aspect of the right wrist at [employer] on 04 August by Moe Russo. -HIV, AIDS. Pending CD4 and viral load count. Continue antiretroviral therapy. -Hepatitis C -Status post back surgery with anterior approach with subsequent MRSA infection -History of esophageal CA -Acute kidney injury. Dr. Cruz is following in nephrology consultation. -Hypertension, continue Diovan and atenolol. Further recommendations based on clinical course. Plan of care discussed with Dr. Haddad. Subjective 24 Hr Interval Summary Free Text/Dictation Patient is walking around in the room. Afebrile. States feels better. Right foot is getting better. Discussed with Dr. Rubio for possible MRCP plan. Discussed with the staff. Eyes: no complaints ENT: no complaints Respiratory: no complaints Cardiovascular: no complaints Gastrointestinal: pain Genitourinary: no complaints Musculoskeletal: bone/joint pain Skin: erythema Lymphatic: no complaints Psychological: no complaints Immunologic: immunodeficiency (History of AIDS) Exam/Review of Systems Vital Signs Vitals Vital Signs Date Time Temp Pulse Resp B/P Pulse Ox O2 Delivery O2 Flow Rate FiO2 08/27/16 08:18 98.3 64 18 104/69 97 08/26/16 08:29 Room Air 08/24/16 08:45 2.0 Intake and Output 08/26/16 08/26/16 08/27/16 15:00 23:00 07:00 Intake Total 640 ml 880 ml 1780 ml Balance 640 ml 880 ml 1780 ml Exam Constitutional: alert, oriented, well developed Psych: no complaints Eyes: EOMI, PERRL, nl sclera ENMT: nl external ears & nose Neck: non-tender Respiratory: clear to auscultation Cardiovascular: nl pulses Gastrointestinal: soft, tender (Right upper quadrant tenderness, discussed with Dr. Rubio possible MRCP today) Musculoskeletal: other (Right foot cellulitis improving redness edema and erythema resolving) Extremities: normal pulses Neurological: nl mental status, nl speech Skin: other (Multiple skin wounds on abdomen-no more discharge noted no more redness) Lymph: nl lymph nodes Results Result Diagram: 08/27/1652408/27/16524 Results 24 hrs Laboratory Tests Test 08/27/16 05:25 08/27/16 09:03 White Blood Count 2.3 L Red Blood Count 3.33 L Hemoglobin 9.2 L Hematocrit 29.5 L Mean Corpuscular Volume 88.6 Mean Corpuscular Hemoglobin 27.6 L Mean Corpuscular Hemoglobin Concent 31.2 L Red Cell Distribution Width 14.8 H Platelet Count 165 Mean Platelet Volume 11.5 H Neutrophils % 28.0 L Lymphocytes % 55.5 H Monocytes % 12.2 H Eosinophils % 3.9 Basophils % 0.4 Nucleated Red Blood Cells % 0.0 Neutrophils # 0.6 L Lymphocytes # 1.3 Monocytes # 0.3 Eosinophils # 0.1 Basophils # 0.0 Nucleated Red Blood Cells # 0.0 Sodium Level 138 Potassium Level 3.7 Chloride Level 105 Carbon Dioxide Level 28 Anion Gap 9 Blood Urea Nitrogen 13 Creatinine 1.06 H Glucose Level 115 Calcium Level 8.5 Total Bilirubin 0.0 L Direct Bilirubin 0.00 Indirect Bilirubin 0.0 Aspartate Amino Transf (AST/SGOT) 119 H Alanine Aminotransferase (ALT/SGPT) 62 Alkaline Phosphatase 461 H Total Protein 6.9 Albumin 3.1 L Globulin 3.80 H Albumin/Globulin Ratio 0.81 Amylase Level 64 Lipase 88 Lab Scanned Report REFERENCE LAB Medications Medications Current Medications Atenolol (Tenormin) 100 mg DAILY PO Last administered on 08/27/16 10:16; Admin Dose 100 MG; Start 08/24/16 at 09:00 Cyclobenzaprine HCl (Flexeril) 10 mg BID PO Last administered on 08/27/16 10: 16; Admin Dose 10 MG; Start 08/23/16 at 21:00 Gabapentin (Neurontin) 800 mg TID PO Last administered on 08/27/16 10:18; Admin Dose 800 MG; Start 08/23/16 at 21:00 Oxycodone HCl (Roxicodone) 30 mg QID PRN PO PAIN Last administered on 10:51; Admin Dose 30 MG; Start 08/23/16 at 18:30 Valsartan (Diovan) 320 mg DAILY PO Last administered on 08/27/16 10:17; Admin Dose 320 MG; Start 08/24/16 at 09:00 Pantoprazole (Protonix Tab) 40 mg DAILY@06 PO Last administered on 08/27/16 05 :22; Admin Dose 40 MG; Start 08/24/16 at 06:00 Ondansetron HCl (Zofran Inj) 4 mg Q6H PRN IV NAUSEA AND/OR VOMITING Last administered on 08/27/16 10:48; Admin Dose 4 MG; Start 08/23/16 at 19:00 Acetaminophen (Tylenol Tab) 650 mg Q6H PRN PO PAIN AND OR ELEVATED TEMP Last administered on 08/26/16 08:23; Admin Dose 650 MG; Start 08/23/16 at 19:00 Enoxaparin Sodium (Lovenox) 40 mg DAILY SC Last administered on 08/27/16 10:30 ; Admin Dose 40 MG; Start 08/24/16 at 09:00 Hydromorphone HCl (Dilaudid) 1 mg Q4H PRN IV PAIN Last administered on 08:01; Admin Dose 1 MG; Start 08/23/16 at 19:00 Nystatin 2 ml 2 ml QID PO Last administered on 08/27/16 10:18; Admin Dose 2 ML ; Start 08/23/16 at 21:00 Dextrose/Sodium Chloride (D5-1/2ns) 1,000 ml @ 60 mls/hr [id number] IV Last administered on 08/27/16 05:22; Admin Dose 60 MLS/HR; Start 08/23/16 at 20:00 Docusate Sodium 100 mg 100 mg BID PO Last administered on 08/27/16 10:17; Admin Dose 100 MG; Start 08/23/16 at 21:00 Linezolid (Zyvox 600mg/D5W (Pmx)) 300 ml @ 300 mls/hr Q12 IVPB Last administered on 08/27/16 10:15; Admin Dose 300 MLS/HR; Start 08/24/16 at 09:00 Diphenhydramine HCl (Benadryl) 25 mg Q6H PRN IV ITCHING Last administered on 02:19; Admin Dose 25 MG; Start 08/24/16 at 02:30 Non-Formulary Medication 1 ea DAILY PO Last administered on 08/27/16 10:19; Admin Dose 1 EA; Start 08/26/16 at 09:00 Non-Formulary Medication 1 ea DAILY PO Last administered on 08/27/16 10:19; Admin Dose 1 EA; Start 08/26/16 at 09:00 JOHN HOYOS Aug 27, 2016 11:06
--- NOTE | 2016-08-27 11:30 | CONS ---
Date/Time of Note Date/Time of Note DATE: 08/27/16 TIME: 11:29 Assessment/Plan Assessment/Plan Additional Assessment/Plan Additional Assessment/Plan IMPRESSION: 1. Human immunodeficiency virus. 2. History of hepatitis C. 3. History of esophageal cancer. 4. Elevated alkaline phosphatase. 5. Anemia. 6. Cellulitis of the left lower extremity. 7. Infection of the surgical site of the right arm. 8. Failed multiple back surgeries. 9. ALLERGIC TO PENICILLIN AND RIFAMPIN. 10. Right upper quadrant pain, rule out bile duct stone PLAN: At this point, is to continue all the medication as per the ID. We will get a sonogram of the liver to make sure there is no space occupying lesion or biliary obstruction. We will also order acute hepatitis panel to confirm the diagnosis of hep C. Hepatitis C virus RNA by PCR method is ordered. If the viral load is high ,then may need treatment Patient definitely needs ERCP. I will try to schedule it tomorrow if GI lab permit Consultation Date/Type/Reason Admit Date/Time Aug 25, 2016 at 12:43 Initial Consult Date 08/24/16 Type of Consultation: NEPHROLOGY Referring Provider: JOHN HOYOS 24 HR Interval Summary Free Text/Dictation Patient complains of excruciating pain in the right upper quadrant Exam/Review of Systems Vital Signs Vitals Vital Signs Date Time Temp Pulse Resp B/P Pulse Ox O2 Delivery O2 Flow Rate FiO2 08/27/16 08:18 98.3 64 18 104/69 97 08/26/16 08:29 Room Air 08/24/16 08:45 2.0 Intake and Output 08/26/16 08/26/16 08/27/16 15:00 23:00 07:00 Intake Total 640 ml 880 ml 1780 ml Balance 640 ml 880 ml 1780 ml Exam Constitutional: alert, oriented, well developed Psych: nl mood/affect, no complaints Head: atraumatic, normocephalic Eyes: EOMI, PERRL, nl conjunctiva, nl lids, nl sclera ENMT: nl external ears & nose, nl lips & teeth, nl nasal mucosa & septum Neck: non-tender, supple Respiratory: clear to auscultation, normal air movement Cardiovascular: nl pulses, regular rate and rhythm Gastrointestinal: nl liver, spleen, non-tender, soft Musculoskeletal: nl extremities to inspection, nl gait and stance Extremities: normal pulses Neurological: PILOT II-XII intact, nl mental status, nl speech, nl strength Skin: nl turgor, No rash or lesions Lymph: nl lymph nodes Results Result Diagram: 08/27/1625 08/27/1625 Results 24 hrs Laboratory Tests Test 08/27/16 05:25 08/27/16 09:03 White Blood Count 2.3 L Red Blood Count 3.33 L Hemoglobin 9.2 L Hematocrit 29.5 L Mean Corpuscular Volume 88.6 Mean Corpuscular Hemoglobin 27.6 L Mean Corpuscular Hemoglobin Concent 31.2 L Red Cell Distribution Width 14.8 H Platelet Count 165 Mean Platelet Volume 11.5 H Neutrophils % 28.0 L Lymphocytes % 55.5 H Monocytes % 12.2 H Eosinophils % 3.9 Basophils % 0.4 Nucleated Red Blood Cells % 0.0 Neutrophils # 0.6 L Lymphocytes # 1.3 Monocytes # 0.3 Eosinophils # 0.1 Basophils # 0.0 Nucleated Red Blood Cells # 0.0 Sodium Level 138 Potassium Level 3.7 Chloride Level 105 Carbon Dioxide Level 28 Anion Gap 9 Blood Urea Nitrogen 13 Creatinine 1.06 H Glucose Level 115 Calcium Level 8.5 Total Bilirubin 0.0 L Direct Bilirubin 0.00 Indirect Bilirubin 0.0 Aspartate Amino Transf (AST/SGOT) 119 H Alanine Aminotransferase (ALT/SGPT) 62 Alkaline Phosphatase 461 H Total Protein 6.9 Albumin 3.1 L Globulin 3.80 H Albumin/Globulin Ratio 0.81 Amylase Level 64 Lipase 88 Lab Scanned Report REFERENCE LAB Medications Medications Current Medications Atenolol (Tenormin) 100 mg DAILY PO Last administered on 08/27/16 10:16; Admin Dose 100 MG; Start 08/24/16 at 09:00 Cyclobenzaprine HCl (Flexeril) 10 mg BID PO Last administered on 08/27/16 10: 16; Admin Dose 10 MG; Start 08/23/16 at 21:00 Gabapentin (Neurontin) 800 mg TID PO Last administered on 08/27/16 10:18; Admin Dose 800 MG; Start 08/23/16 at 21:00 Oxycodone HCl (Roxicodone) 30 mg QID PRN PO PAIN Last administered on 10:51; Admin Dose 30 MG; Start 08/23/16 at 18:30 Valsartan (Diovan) 320 mg DAILY PO Last administered on 08/27/16 10:17; Admin Dose 320 MG; Start 08/24/16 at 09:00 Pantoprazole (Protonix Tab) 40 mg DAILY@06 PO Last administered on 08/27/16 05 :22; Admin Dose 40 MG; Start 08/24/16 at 06:00 Ondansetron HCl (Zofran Inj) 4 mg Q6H PRN IV NAUSEA AND/OR VOMITING Last administered on 08/27/16 10:48; Admin Dose 4 MG; Start 08/23/16 at 19:00 Acetaminophen (Tylenol Tab) 650 mg Q6H PRN PO PAIN AND OR ELEVATED TEMP Last administered on 08/26/16 08:23; Admin Dose 650 MG; Start 08/23/16 at 19:00 Enoxaparin Sodium (Lovenox) 40 mg DAILY SC Last administered on 08/27/16 10:30 ; Admin Dose 40 MG; Start 08/24/16 at 09:00 Hydromorphone HCl (Dilaudid) 1 mg Q4H PRN IV PAIN Last administered on 08:01; Admin Dose 1 MG; Start 08/23/16 at 19:00 Nystatin 2 ml 2 ml QID PO Last administered on 08/27/16 10:18; Admin Dose 2 ML ; Start 08/23/16 at 21:00 Dextrose/Sodium Chloride (D5-1/2ns) 1,000 ml @ 60 mls/hr [id number] IV Last administered on 08/27/16 05:22; Admin Dose 60 MLS/HR; Start 08/23/16 at 20:00 Docusate Sodium 100 mg 100 mg BID PO Last administered on 08/27/16 10:17; Admin Dose 100 MG; Start 08/23/16 at 21:00 Linezolid (Zyvox 600mg/D5W (Pmx)) 300 ml @ 300 mls/hr Q12 IVPB Last administered on 08/27/16 10:15; Admin Dose 300 MLS/HR; Start 08/24/16 at 09:00 Diphenhydramine HCl (Benadryl) 25 mg Q6H PRN IV ITCHING Last administered on 02:19; Admin Dose 25 MG; Start 08/24/16 at 02:30 Non-Formulary Medication 1 ea DAILY PO Last administered on 08/27/16 10:19; Admin Dose 1 EA; Start 08/26/16 at 09:00 Non-Formulary Medication 1 ea DAILY PO Last administered on 08/27/16 10:19; Admin Dose 1 EA; Start 08/26/16 at 09:00 RAI LR MD Aug 27, 2016 11:30
--- NOTE | 2016-08-27 11:35 | CONS ---
Date/Time of Note Date/Time of Note DATE: 08/27/16 TIME: 11:32 Assessment/Plan Assessment/Plan Additional Assessment/Plan 1. Acute kidney injury secondary to prerenal azotemia. 2. 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 3. History of HIV and hepatitis C. 4. Hyperphosphatemia with a phosphorus 5.1. 5. History of multiple surgeries before. 6. History of complicated surgical site infection of the back due to methicillin-resistant Staphylococcus aureus. 7. History of multiple back surgeries. 8. History of human immunodeficiency virus AIDS with CD4 less than 50, and detectable viral load, according to patient. plan: Renal function improved with IVF hydation initially, but now again creatinine bumped today, will give 1 liter IVF hydration pt has low proteinuric due to HIV will follow up s/p GI consult Consultation Date/Type/Reason Admit Date/Time Aug 25, 2016 at 12:43 Initial Consult Date 08/24/16 Type of Consultation: NEPHROLOGY Reason for Consultation acute kidney injury Referring Provider: JOHN HOYOS 24 HR Interval Summary Free Text/Dictation Cr bumped to 1.06, BP stable Exam/Review of Systems Vital Signs Vitals Vital Signs Date Time Temp Pulse Resp B/P Pulse Ox O2 Delivery O2 Flow Rate FiO2 08/27/16 08:18 98.3 64 18 104/69 97 08/26/16 08:29 Room Air 08/24/16 08:45 2.0 Intake and Output 08/26/16 08/26/16 08/27/16 15:00 23:00 07:00 Intake Total 640 ml 880 ml 1780 ml Balance 640 ml 880 ml 1780 ml Exam GENERAL: Awake, alert. HEENT: Normal. Oropharynx clear. NECK: Supple, no JVD, no lymphadenopathy. LUNGS: Clear to auscultation. No crackles, no wheezes. HEART: S1, S2, with regular rhythm, no murmur. ABDOMEN: Soft, nontender, nondistended. Bowel sounds are present. EXTREMITIES: No clubbing, cyanosis, or edema. The patient has right wrist erythema, swelling, tender to palpation. NEUROLOGICAL: Nonfocal, intact. PSYCHIATRIC: Appropriate affect and mood. Results Result Diagram: 08/27/16 0525 08/27/16 0525 Results 24 hrs Laboratory Tests Test 08/27/16 05:25 08/27/16 09:03 White Blood Count 2.3 L Red Blood Count 3.33 L Hemoglobin 9.2 L Hematocrit 29.5 L Mean Corpuscular Volume 88.6 Mean Corpuscular Hemoglobin 27.6 L Mean Corpuscular Hemoglobin Concent 31.2 L Red Cell Distribution Width 14.8 H Platelet Count 165 Mean Platelet Volume 11.5 H Neutrophils % 28.0 L Lymphocytes % 55.5 H Monocytes % 12.2 H Eosinophils % 3.9 Basophils % 0.4 Nucleated Red Blood Cells % 0.0 Neutrophils # 0.6 L Lymphocytes # 1.3 Monocytes # 0.3 Eosinophils # 0.1 Basophils # 0.0 Nucleated Red Blood Cells # 0.0 Sodium Level 138 Potassium Level 3.7 Chloride Level 105 Carbon Dioxide Level 28 Anion Gap 9 Blood Urea Nitrogen 13 Creatinine 1.06 H Glucose Level 115 Calcium Level 8.5 Total Bilirubin 0.0 L Direct Bilirubin 0.00 Indirect Bilirubin 0.0 Aspartate Amino Transf (AST/SGOT) 119 H Alanine Aminotransferase (ALT/SGPT) 62 Alkaline Phosphatase 461 H Total Protein 6.9 Albumin 3.1 L Globulin 3.80 H Albumin/Globulin Ratio 0.81 Amylase Level 64 Lipase 88 Lab Scanned Report REFERENCE LAB Medications Medications Current Medications Atenolol (Tenormin) 100 mg DAILY PO Last administered on 08/27/16 10:16; Admin Dose 100 MG; Start 08/24/16 at 09:00 Cyclobenzaprine HCl (Flexeril) 10 mg BID PO Last administered on 08/27/16 10: 16; Admin Dose 10 MG; Start 08/23/16 at 21:00 Gabapentin (Neurontin) 800 mg TID PO Last administered on 08/27/16 10:18; Admin Dose 800 MG; Start 08/23/16 at 21:00 Oxycodone HCl (Roxicodone) 30 mg QID PRN PO PAIN Last administered on 10:51; Admin Dose 30 MG; Start 08/23/16 at 18:30 Valsartan (Diovan) 320 mg DAILY PO Last administered on 08/27/16 10:17; Admin Dose 320 MG; Start 08/24/16 at 09:00 Pantoprazole (Protonix Tab) 40 mg DAILY@06 PO Last administered on 08/27/16 05 :22; Admin Dose 40 MG; Start 08/24/16 at 06:00 Ondansetron HCl (Zofran Inj) 4 mg Q6H PRN IV NAUSEA AND/OR VOMITING Last administered on 08/27/16 10:48; Admin Dose 4 MG; Start 08/23/16 at 19:00 Acetaminophen (Tylenol Tab) 650 mg Q6H PRN PO PAIN AND OR ELEVATED TEMP Last administered on 08/26/16 08:23; Admin Dose 650 MG; Start 08/23/16 at 19:00 Enoxaparin Sodium (Lovenox) 40 mg DAILY SC Last administered on 08/27/16 10:30 ; Admin Dose 40 MG; Start 08/24/16 at 09:00 Hydromorphone HCl (Dilaudid) 1 mg Q4H PRN IV PAIN Last administered on 08:01; Admin Dose 1 MG; Start 08/23/16 at 19:00 Nystatin 2 ml 2 ml QID PO Last administered on 08/27/16 10:18; Admin Dose 2 ML ; Start 08/23/16 at 21:00 Dextrose/Sodium Chloride (D5-1/2ns) 1,000 ml @ 60 mls/hr [id number] IV Last administered on 08/27/16 05:22; Admin Dose 60 MLS/HR; Start 08/23/16 at 20:00 Docusate Sodium 100 mg 100 mg BID PO Last administered on 08/27/16 10:17; Admin Dose 100 MG; Start 08/23/16 at 21:00 Linezolid (Zyvox 600mg/D5W (Pmx)) 300 ml @ 300 mls/hr Q12 IVPB Last administered on 08/27/16 10:15; Admin Dose 300 MLS/HR; Start 08/24/16 at 09:00 Diphenhydramine HCl (Benadryl) 25 mg Q6H PRN IV ITCHING Last administered on 02:19; Admin Dose 25 MG; Start 08/24/16 at 02:30 Non-Formulary Medication 1 ea DAILY PO Last administered on 08/27/16 10:19; Admin Dose 1 EA; Start 08/26/16 at 09:00 Non-Formulary Medication 1 ea DAILY PO Last administered on 4/27/17at 10:19; Admin Dose 1 EA; Start 08/26/16 at 09:00 ELLIS EISENBERG MD Aug 27, 2016 11:35
[2016-08-27 15:36] LABS: ADD UMIC NO; URINE BILIRUBIN (Dip) NEGATIVE (NEGATIVE); URINE BLOOD (Dip) NEGATIVE (NEGATIVE); URINE COLOR LT. YELLOW (YELLOW); URINE GLUCOSE (Dip) NEGATIVE (NEGATIVE); URINE KETONES (Dip) NEGATIVE (NEGATIVE); URINE LEUKOCYTE ESTERASE (Dip) NEGATIVE (NEGATIVE); URINE NITRITE (Dip) NEGATIVE (NEGATIVE); URINE TOTAL PROTEIN (Dip) NEGATIVE (NEGATIVE); URINE UROBILINOGEN (Dip) 0.2 E.U./dL (0.1-1.0)
--- NOTE | 2016-08-27 18:44 | CONS ---
Date/Time of Note Date/Time of Note DATE: 08/27/16 TIME: 18:39 Assessment/Plan Assessment/Plan Chief Complaint/Hosp Course assessment/impression - infection near the surgical site of R volar wrist, likely due to MRSA - HIV/AIDS, PJ7=825, NV=[id number] copies - recent LLL cellulitis - possible biliary dilatation without filling defect or choledocholithiasis - surgery to R volar hand - h/o complicated surgical site infections of the back due to MRSA - s/p multiple back surgeries, with anterior and posterior approaches, that were complicated by MRSA infections. - past HCV exposure, viral load undetectable - HBV Ab+ status - esophageal CA - h/o thrush per Pt - h/o endometriosis, s/p BEAR-BSO - s/p appendectomy, CCY - s/p tonsillectomy, adenoidectomy - adverse reaction to vancomycin at ER - allergy to PCN and rifampin recommendations - I will review the result of ERCP - Pt does not have sufficient viral load to order antiretrovial resistance testing - check hepatitis B surface antibody - continue linezolid (08/24/2016-) empirically - continue Descovy and Intelence for HIV. If her GFR worsens, I will recommend renally dose tenofovir and emtricitabine separately - continue Bactrim DS once daily for pneumocystis prophylaxis management d/w Pt and her RN Problems: Consultation Date/Type/Reason Admit Date/Time Aug 25, 2016 at 12:43 Initial Consult Date 08/24/16 Type of Consultation: ID Referring Provider: JOHN OHYOS Exam/Review of Systems Vital Signs Vitals Vital Signs Date Time Temp Pulse Resp B/P Pulse Ox O2 Delivery O2 Flow Rate FiO2 08/27/16 08:18 98.3 64 18 104/69 97 08/26/16 08:29 Room Air 08/24/16 08:45 2.0 Intake and Output 08/26/16 08/26/16 08/27/16 15:00 23:00 07:00 Intake Total 640 ml 880 ml 1780 ml Balance 640 ml 880 ml 1780 ml Exam Constitutional: alert, oriented, well developed Psych: no complaints Head: atraumatic, normocephalic Eyes: nl conjunctiva, nl lids ENMT: nl external ears & nose, nl nasal mucosa & septum Musculoskeletal: joint tenderness (R volar wrist, no fluctuance), No swelling Extremities: normal pulses Results Result Diagram: 08/27/16 0525 08/27/16 0525 Results 24 hrs Laboratory Tests Test 08/27/16 05:25 08/27/16 09:03 08/27/16 14:45 White Blood Count 2.3 L Red Blood Count 3.33 L Hemoglobin 9.2 L Hematocrit 29.5 L Mean Corpuscular Volume 88.6 Mean Corpuscular Hemoglobin 27.6 L Mean Corpuscular Hemoglobin Concent 31.2 L Red Cell Distribution Width 14.8 H Platelet Count 165 Mean Platelet Volume 11.5 H Neutrophils % 28.0 L Lymphocytes % 55.5 H Monocytes % 12.2 H Eosinophils % 3.9 Basophils % 0.4 Nucleated Red Blood Cells % 0.0 Neutrophils # 0.6 L Lymphocytes # 1.3 Monocytes # 0.3 Eosinophils # 0.1 Basophils # 0.0 Nucleated Red Blood Cells # 0.0 Sodium Level 138 Potassium Level 3.7 Chloride Level 105 Carbon Dioxide Level 28 Anion Gap 9 Blood Urea Nitrogen 13 Creatinine 1.06 H Glucose Level 115 Calcium Level 8.5 Total Bilirubin 0.0 L Direct Bilirubin 0.00 Indirect Bilirubin 0.0 Aspartate Amino Transf (AST/SGOT) 119 H Alanine Aminotransferase (ALT/SGPT) 62 Alkaline Phosphatase 461 H Total Protein 6.9 Albumin 3.1 L Globulin 3.80 H Albumin/Globulin Ratio 0.81 Amylase Level 64 Lipase 88 Lab Scanned Report REFERENCE LAB Urine Color LT. YELLOW Urine Clarity CLEAR Urine pH 6.0 Urine Specific [place] 1.010 Urine Ketones NEGATIVE Urine Nitrite NEGATIVE Urine Bilirubin NEGATIVE Urine Urobilinogen 0.2 E.U./dL Urine Leukocyte Esterase NEGATIVE Urine Hemoglobin NEGATIVE Urine Glucose NEGATIVE Urine Total Protein NEGATIVE Medications Medications Current Medications Atenolol (Tenormin) 100 mg DAILY PO Last administered on 08/27/16 10:16; Admin Dose 100 MG; Start 08/24/16 at 09:00 Cyclobenzaprine HCl (Flexeril) 10 mg BID PO Last administered on 08/27/16 10: 16; Admin Dose 10 MG; Start 08/23/16 at 21:00 Gabapentin (Neurontin) 800 mg TID PO Last administered on 08/27/16 13:41; Admin Dose 800 MG; Start 08/23/16 at 21:00 Oxycodone HCl (Roxicodone) 30 mg QID PRN PO PAIN Last administered on 10:51; Admin Dose 30 MG; Start 08/23/16 at 18:30 Valsartan (Diovan) 320 mg DAILY PO Last administered on 08/27/16 10:17; Admin Dose 320 MG; Start 08/24/16 at 09:00 Pantoprazole (Protonix Tab) 40 mg DAILY@06 PO Last administered on 08/27/16 05 :22; Admin Dose 40 MG; Start 08/24/16 at 06:00 Ondansetron HCl (Zofran Inj) 4 mg Q6H PRN IV NAUSEA AND/OR VOMITING Last administered on 08/27/16 10:48; Admin Dose 4 MG; Start 08/23/16 at 19:00 Acetaminophen (Tylenol Tab) 650 mg Q6H PRN PO PAIN AND OR ELEVATED TEMP Last administered on 08/26/16 08:23; Admin Dose 650 MG; Start 08/23/16 at 19:00 Enoxaparin Sodium (Lovenox) 40 mg DAILY SC Last administered on 08/27/16 10:30 ; Admin Dose 40 MG; Start 08/24/16 at 09:00; Status Future Hold Hydromorphone HCl (Dilaudid) 1 mg Q4H PRN IV PAIN Last administered on 17:21; Admin Dose 1 MG; Start 08/23/16 at 19:00 Nystatin 2 ml 2 ml QID PO Last administered on 08/27/16 17:20; Admin Dose 2 ML ; Start 08/23/16 at 21:00 Dextrose/Sodium Chloride (D5-1/2ns) 1,000 ml @ 80 mls/hr [id number] IV Last administered on 08/27/16 05:22; Admin Dose 60 MLS/HR; Start 08/23/16 at 20:00 Docusate Sodium 100 mg 100 mg BID PO Last administered on 08/27/16 10:17; Admin Dose 100 MG; Start 08/23/16 at 21:00 Linezolid (Zyvox 600mg/D5W (Pmx)) 300 ml @ 300 mls/hr Q12 IVPB Last administered on 08/27/16 10:15; Admin Dose 300 MLS/HR; Start 08/24/16 at 09:00 Diphenhydramine HCl (Benadryl) 25 mg Q6H PRN IV ITCHING Last administered on 02:19; Admin Dose 25 MG; Start 08/24/16 at 02:30 Non-Formulary Medication 1 ea DAILY PO Last administered on 08/27/16 10:19; Admin Dose 1 EA; Start 08/26/16 at 09:00 Non-Formulary Medication 1 ea DAILY PO Last administered on 08/27/16 10:19; Admin Dose 1 EA; Start 08/26/16 at 09:00 DELON TATE M.D. Aug 27, 2016 18:44
[2016-08-27 19:21] VITALS: BP 136/79; RESP 19
[2016-08-28] MEDS: HYDROmorphONE 1 MG/ML SYG IV PRN ×4 (04:03→23:38)
[2016-08-28] MEDS: PANTOPRAZOLE (EC) 40 MG TAB PO SCH (05:49)
[2016-08-28 05:55] LABS: ADD SCAN DIFF NO
[2016-08-28] MEDS: oxyCODONE 15 MG TAB PO PRN ×2 (06:02→18:12)
[2016-08-28 06:30] LABS: POTASSIUM 3.7 mmol/L (3.5-5.1)
[2016-08-28 06:33] LABS: CREATININE 1.01 mg/dl (0.44-1.00)
[2016-08-28 06:34] LABS: CALCIUM 8.4 mg/dl (8.4-10.2)
[2016-08-28 08:02] VITALS: BP 106/62; PULSE 75; RESP 14
[2016-08-28 08:44] LABS: BASOPHILS % 0.3 % (0.0-2.0); EOSINOPHILS # 0.1 10^3/ul (0.0-0.5); EOSINOPHILS % 3.1 % (0.0-7.0); HEMATOCRIT 27.9 % (37.0-47.0); LYMPHOCYTES # 1.1 10^3/ul (0.8-2.9); LYMPHOCYTES % 33.1 % (15.0-51.0); MEAN CORPUSCULAR HEMOGLOBIN 28.3 pg (29.0-33.0); MEAN CORPUSCULAR HGB CONC 32.3 g/dl (32.0-37.0); MEAN CORPUSCULAR VOLUME 87.7 fl (82.0-101.0); MEAN PLATELET VOLUME 11.5 fl (7.4-10.4); MONOCYTE # 0.3 10^3/ul (0.3-0.9); MONOCYTES % 8.4 % (0.0-11.0); NEUTROPHIL # 1.8 10^3/ul (1.6-7.5); NEUTROPHILS % 54.8 % (39.0-77.0); PLATELET COUNT 161 10^3/UL (140-415); RED BLOOD COUNT 3.18 10^6/ul (4.20-5.40); RED CELL DISTRIBUTION WIDTH 14.6 % (11.5-14.5); WHITE BLOOD COUNT 3.2 10^3/ul (4.8-10.8)
[2016-08-28] MEDS: ATENOLOL 100 MG TAB PO SCH (09:00)
[2016-08-28] MEDS: VALSARTAN 160 MG TAB PO SCH (09:00)
[2016-08-28] MEDS: LINEZOLID 600 MG/D5W (PMX) 300 ML IVPB SCH ×2 (09:16→23:37)
[2016-08-28] MEDS: NYSTATIN SUSP 5 ML CUP PO SCH ×4 (09:17→21:00)
[2016-08-28] MEDS: DOCUSATE SODIUM 100 MG CAP PO SCH ×2 (09:18→21:00)
[2016-08-28] MEDS: GABAPENTIN 400 MG CAP PO SCH ×3 (09:18→20:49)
[2016-08-28] MEDS: ETRAVIRINE 100 MG TABLET PO SCH ×2 (09:18→20:49)
[2016-08-28] MEDS: CYCLOBENZAPRINE 10 MG TAB PO SCH ×2 (09:20→23:37)
[2016-08-28] MEDS: DEXTROSE 5%-0.45% NACL 1,000 ML IV SCH ×2 (09:24→20:15)
--- NOTE | 2016-08-28 10:02 | CONS ---
Date/Time of Note Date/Time of Note DATE: 08/28/16 TIME: 09:48 Assessment/Plan Assessment/Plan Chief Complaint/Hosp Course assessment/impression - infection near the surgical site of R volar wrist, likely due to MRSA - HIV/AIDS, HZ7=739, GA=[id number] copies - recent LLL cellulitis - neutropenia, improving - possible biliary dilatation without filling defect or choledocholithiasis - surgery to R volar hand - h/o pneumocystis pneumonia - h/o complicated surgical site infections of the back due to MRSA (years ago) - s/p multiple back surgeries, with anterior and posterior approaches, that were complicated by MRSA infections. - past HCV exposure, viral load undetectable - HBV Ab+ status - esophageal CA - h/o thrush per Pt - h/o endometriosis, s/p BEAR-BSO - s/p appendectomy, CCY - s/p tonsillectomy, adenoidectomy - adverse reaction to vancomycin at ER - allergy to PCN and rifampin recommendations - discussed with Dr. Costello: I will review the result of ERCP - pending: hepatitis B surface antibody. Pt does not have sufficient viral load to order antiretrovial resistance testing - cellulitis: continue linezolid (08/24/2016-), planned through 08/31/2016. Monitor CBC - I ordered two days of aztreonam and metronidazole for prophylaxis through the end of tomorrow because Pt was neutropenic for several days - continue Descovy and Intelence for HIV. If her GFR worsens, I will recommend renally dose tenofovir and emtricitabine separately - continue Bactrim DS once daily for pneumocystis prophylaxis management d/w Pt, RN and Dr. Costello Problems: Consultation Date/Type/Reason Admit Date/Time Aug 25, 2016 at 12:43 Initial Consult Date 08/24/16 Type of Consultation: ID Referring Provider: JOHN HOYOS 24 HR Interval Summary Constitutional: no complaints Detailed Summary Eyes: no complaints ENT: no complaints Respiratory: no complaints Cardiovascular: no complaints Gastrointestinal: pain, No diarrhea, No nausea, No vomiting Genitourinary: no complaints Musculoskeletal: other (pain of R wrist) Skin: skin lesions (R volar wrist) Exam/Review of Systems Vital Signs Vitals Vital Signs Date Time Temp Pulse Resp B/P Pulse Ox O2 Delivery O2 Flow Rate FiO2 08/28/16 08:02 98.3 75 14 106/62 95 Room Air 08/24/16 08:45 2.0 Intake and Output 08/27/16 08/27/16 08/28/16 15:00 23:00 07:00 Intake Total 300 ml 1750 ml 1250 ml Balance 300 ml 1750 ml 1250 ml Exam Constitutional: alert, oriented, well developed Psych: no complaints Head: normocephalic Eyes: nl conjunctiva, nl lids ENMT: nl external ears & nose, nl nasal mucosa & septum Neck: supple Gastrointestinal: tender (RUQ), No distended, No mass Musculoskeletal: joint tenderness (R volar hand), other (despite tenderness, Pt had FROM of R wrist, was able to hold her mobile on R arm and wriste notes) Extremities: normal pulses Neurological: [employer] II-XII intact, nl mental status, nl speech Skin: rash or lesions (surgical site of R volar hand) Results Result Diagram: 08/28/16 0805 08/28/16 0510 Results 24 hrs Laboratory Tests Test 08/27/16 14:45 08/28/16 05:10 08/28/16 08:05 Urine Color LT. YELLOW Urine Clarity CLEAR Urine pH 6.0 Urine Specific [place] 1.010 Urine Ketones NEGATIVE Urine Nitrite NEGATIVE Urine Bilirubin NEGATIVE Urine Urobilinogen 0.2 E.U./dL Urine Leukocyte Esterase NEGATIVE Urine Hemoglobin NEGATIVE Urine Glucose NEGATIVE Urine Total Protein NEGATIVE Sodium Level 138 Potassium Level 3.7 Chloride Level 103 Carbon Dioxide Level 22 Anion Gap 17 #H Blood Urea Nitrogen 12 Creatinine 1.01 H Glucose Level 104 Calcium Level 8.4 White Blood Count 3.2 #L Red Blood Count 3.18 L Hemoglobin 9.0 L Hematocrit 27.9 L Mean Corpuscular Volume 87.7 Mean Corpuscular Hemoglobin 28.3 L Mean Corpuscular Hemoglobin Concent 32.3 Red Cell Distribution Width 14.6 H Platelet Count 161 Mean Platelet Volume 11.5 H Neutrophils % 54.8 Lymphocytes % 33.1 Monocytes % 8.4 Eosinophils % 3.1 Basophils % 0.3 Nucleated Red Blood Cells % 0.0 Neutrophils # 1.8 Lymphocytes # 1.1 Monocytes # 0.3 Eosinophils # 0.1 Basophils # 0.0 Nucleated Red Blood Cells # 0.0 Medications Medications Current Medications Atenolol (Tenormin) 100 mg DAILY PO Last administered on 08/27/16 10:16; Admin Dose 100 MG; Start 08/24/16 at 09:00 Cyclobenzaprine HCl (Flexeril) 10 mg BID PO Last administered on 08/28/16 09: 20; Admin Dose 10 MG; Start 08/23/16 at 21:00 Gabapentin (Neurontin) 800 mg TID PO Last administered on 08/28/16 09:18; Admin Dose 800 MG; Start 08/23/16 at 21:00 Oxycodone HCl (Roxicodone) 30 mg QID PRN PO PAIN Last administered on 06:02; Admin Dose 30 MG; Start 08/23/16 at 18:30 Valsartan (Diovan) 320 mg DAILY PO Last administered on 08/27/16 10:17; Admin Dose 320 MG; Start 08/24/16 at 09:00 Pantoprazole (Protonix Tab) 40 mg DAILY@06 PO Last administered on 08/27/16 05 :22; Admin Dose 40 MG; Start 08/24/16 at 06:00 Ondansetron HCl (Zofran Inj) 4 mg Q6H PRN IV NAUSEA AND/OR VOMITING Last administered on 08/27/16 10:48; Admin Dose 4 MG; Start 08/23/16 at 19:00 Acetaminophen (Tylenol Tab) 650 mg Q6H PRN PO PAIN AND OR ELEVATED TEMP Last administered on 08/26/16 08:23; Admin Dose 650 MG; Start 08/23/16 at 19:00 Enoxaparin Sodium (Lovenox) 40 mg DAILY SC Last administered on 08/27/16 10:30 ; Admin Dose 40 MG; Start 08/24/16 at 09:00; Status Future Hold Hydromorphone HCl (Dilaudid) 1 mg Q4H PRN IV PAIN Last administered on 09:17; Admin Dose 1 MG; Start 08/23/16 at 19:00 Nystatin 2 ml 2 ml QID PO Last administered on 08/28/16 09:17; Admin Dose 2 ML ; Start 08/23/16 at 21:00 Dextrose/Sodium Chloride (D5-1/2ns) 1,000 ml @ 80 mls/hr [id number] IV Last administered on 08/27/16 20:26; Admin Dose 80 MLS/HR; Start 08/23/16 at 20:00 Docusate Sodium 100 mg 100 mg BID PO Last administered on 08/28/16 09:18; Admin Dose 100 MG; Start 08/23/16 at 21:00 Linezolid (Zyvox 600mg/D5W (Pmx)) 300 ml @ 300 mls/hr Q12 IVPB Last administered on 08/28/16 09:16; Admin Dose 300 MLS/HR; Start 08/24/16 at 09:00 Diphenhydramine HCl (Benadryl) 25 mg Q6H PRN IV ITCHING Last administered on 02:19; Admin Dose 25 MG; Start 08/24/16 at 02:30 Non-Formulary Medication 1 ea DAILY PO Last administered on 08/27/16 10:19; Admin Dose 1 EA; Start 08/26/16 at 09:00 Non-Formulary Medication 1 ea DAILY PO Last administered on 08/27/16 10:19; Admin Dose 1 EA; Start 08/26/16 at 09:00 DELON TATE M.D. Aug 28, 2016 10:00
--- NOTE | 2016-08-28 11:21 | CONS ---
Date/Time of Note Date/Time of Note DATE: 08/28/16 TIME: 11:20 Assessment/Plan Assessment/Plan Additional Assessment/Plan 1. Acute kidney injury secondary to prerenal azotemia. 2. 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 3. History of HIV and hepatitis C. 4. Hyperphosphatemia with a phosphorus 5.1. 5. History of multiple surgeries before. 6. History of complicated surgical site infection of the back due to methicillin-resistant Staphylococcus aureus. 7. History of multiple back surgeries. 8. History of human immunodeficiency virus AIDS with CD4 less than 50, and detectable viral load, according to patient. 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 will follow up s/p GI consult Consultation Date/Type/Reason Admit Date/Time Aug 25, 2016 at 12:43 Initial Consult Date 08/24/16 Type of Consultation: NEPHROLOGY Referring Provider: JOHN HOYOS 24 HR Interval Summary Free Text/Dictation IVF rate increased to 80cc/hr yesterday, today Cr improved to 1.01 Exam/Review of Systems Vital Signs Vitals Vital Signs Date Time Temp Pulse Resp B/P Pulse Ox O2 Delivery O2 Flow Rate FiO2 08/28/16 08:02 98.3 75 14 106/62 95 Room Air 08/24/16 08:45 2.0 Intake and Output 08/27/16 08/27/16 08/28/16 15:00 23:00 07:00 Intake Total 300 ml 1750 ml 1250 ml Balance 300 ml 1750 ml 1250 ml Exam GENERAL: Awake, alert. HEENT: Normal. Oropharynx clear. NECK: Supple, no JVD, no lymphadenopathy. LUNGS: Clear to auscultation. No crackles, no wheezes. HEART: S1, S2, with regular rhythm, no murmur. ABDOMEN: Soft, nontender, nondistended. Bowel sounds are present. EXTREMITIES: No clubbing, cyanosis, or edema. The patient has right wrist erythema, swelling, tender to palpation. NEUROLOGICAL: Nonfocal, intact. PSYCHIATRIC: Appropriate affect and mood. Results Result Diagram: 08/28/16 0805 08/28/16 0510 Results 24 hrs Laboratory Tests Test 08/27/16 14:45 08/28/16 05:10 08/28/16 08:05 Urine Color LT. YELLOW Urine Clarity CLEAR Urine pH 6.0 Urine Specific [place] 1.010 Urine Ketones NEGATIVE Urine Nitrite NEGATIVE Urine Bilirubin NEGATIVE Urine Urobilinogen 0.2 E.U./dL Urine Leukocyte Esterase NEGATIVE Urine Hemoglobin NEGATIVE Urine Glucose NEGATIVE Urine Total Protein NEGATIVE Sodium Level 138 Potassium Level 3.7 Chloride Level 103 Carbon Dioxide Level 22 Anion Gap 17 #H Blood Urea Nitrogen 12 Creatinine 1.01 H Glucose Level 104 Calcium Level 8.4 White Blood Count 3.2 #L Red Blood Count 3.18 L Hemoglobin 9.0 L Hematocrit 27.9 L Mean Corpuscular Volume 87.7 Mean Corpuscular Hemoglobin 28.3 L Mean Corpuscular Hemoglobin Concent 32.3 Red Cell Distribution Width 14.6 H Platelet Count 161 Mean Platelet Volume 11.5 H Neutrophils % 54.8 Lymphocytes % 33.1 Monocytes % 8.4 Eosinophils % 3.1 Basophils % 0.3 Nucleated Red Blood Cells % 0.0 Neutrophils # 1.8 Lymphocytes # 1.1 Monocytes # 0.3 Eosinophils # 0.1 Basophils # 0.0 Nucleated Red Blood Cells # 0.0 Medications Medications Current Medications Atenolol (Tenormin) 100 mg DAILY PO Last administered on 08/27/16 10:16; Admin Dose 100 MG; Start 08/24/16 at 09:00 Cyclobenzaprine HCl (Flexeril) 10 mg BID PO Last administered on 08/28/16 09: 20; Admin Dose 10 MG; Start 08/23/16 at 21:00 Gabapentin (Neurontin) 800 mg TID PO Last administered on 08/28/16 09:18; Admin Dose 800 MG; Start 08/23/16 at 21:00 Oxycodone HCl (Roxicodone) 30 mg QID PRN PO PAIN Last administered on 06:02; Admin Dose 30 MG; Start 08/23/16 at 18:30 Valsartan (Diovan) 320 mg DAILY PO Last administered on 08/27/16 10:17; Admin Dose 320 MG; Start 08/24/16 at 09:00 Pantoprazole (Protonix Tab) 40 mg DAILY@06 PO Last administered on 08/27/16 05 :22; Admin Dose 40 MG; Start 08/24/16 at 06:00 Ondansetron HCl (Zofran Inj) 4 mg Q6H PRN IV NAUSEA AND/OR VOMITING Last administered on 08/27/16 10:48; Admin Dose 4 MG; Start 08/23/16 at 19:00 Acetaminophen (Tylenol Tab) 650 mg Q6H PRN PO PAIN AND OR ELEVATED TEMP Last administered on 08/26/16 08:23; Admin Dose 650 MG; Start 08/23/16 at 19:00 Enoxaparin Sodium (Lovenox) 40 mg DAILY SC Last administered on 08/27/16 10:30 ; Admin Dose 40 MG; Start 08/24/16 at 09:00; Status Future Hold Hydromorphone HCl (Dilaudid) 1 mg Q4H PRN IV PAIN Last administered on 09:17; Admin Dose 1 MG; Start 08/23/16 at 19:00 Nystatin 2 ml 2 ml QID PO Last administered on 08/28/16 09:17; Admin Dose 2 ML ; Start 08/23/16 at 21:00 Dextrose/Sodium Chloride (D5-1/2ns) 1,000 ml @ 80 mls/hr [id number] IV Last administered on 08/27/16 20:26; Admin Dose 80 MLS/HR; Start 08/23/16 at 20:00 Docusate Sodium 100 mg 100 mg BID PO Last administered on 08/28/16 09:18; Admin Dose 100 MG; Start 08/23/16 at 21:00 Linezolid (Zyvox 600mg/D5W (Pmx)) 300 ml @ 300 mls/hr Q12 IVPB Last administered on 08/28/16 09:16; Admin Dose 300 MLS/HR; Start 08/24/16 at 09:00 Diphenhydramine HCl (Benadryl) 25 mg Q6H PRN IV ITCHING Last administered on 02:19; Admin Dose 25 MG; Start 08/24/16 at 02:30 Non-Formulary Medication 1 ea DAILY PO Last administered on 08/27/16 10:19; Admin Dose 1 EA; Start 08/26/16 at 09:00 Non-Formulary Medication 1 ea 1 ea DAILY PO Last administered on 08/27/16 10: 19; Admin Dose 1 EA; Start 08/26/16 at 09:00 Aztreonam 50 ml @ 100 mls/hr Q8 IVPB ; Start 08/28/16 at 11:00; Stop 08/29/16 at 10:59 Metronidazole (Flagyl 500 Mg (Pmx)) 100 ml @ 100 mls/hr Q8 IVPB ; Start at 11:00; Stop 08/29/16 at 10:59 ELLIS EISENBERG MD Aug 28, 2016 11:21
[2016-08-28] MEDS: PREZCOBIX PO SCH (12:05)
[2016-08-28] MEDS: DESCOVY PO SCH (12:05)
[2016-08-28] MEDS: AZTREONAM 1 GM/NS (PMX) 50 ML IVPB SCH (14:44)
--- NOTE | 2016-08-28 15:14 | RADRPT ---
PROCEDURE: XR Chest. CLINICAL INDICATION: Shortness of breath. TECHNIQUE: A single portable view of the chest was obtained. COMPARISON: None FINDINGS: The aorta is tortuous and atherosclerotic. The cardiomediastinal silhouette is otherwise within nor mal limits. The right hemidiaphragm is elevated. The lungs and pleural spaces are clear. Posterior f usion in the thoracic spine is seen. IMPRESSION: No acute cardiopulmonary disease. RPTAT: HPNM Physician Luz Date Time Electronically viewed and signed by Physician Luz on 08/28/2016 15:14 /
--- NOTE | 2016-08-28 16:28 | CONS ---
Date/Time of Note Date/Time of Note DATE: 08/28/16 TIME: 16:27 Assessment/Plan Assessment/Plan Additional Assessment/Plan Assessment/Plan Additional Assessment/Plan Additional Assessment/Plan IMPRESSION: 1. Human immunodeficiency virus. 2. History of hepatitis C. 3. History of esophageal cancer. 4. Elevated alkaline phosphatase. 5. Anemia. 6. Cellulitis of the left lower extremity. 7. Infection of the surgical site of the right arm. 8. Failed multiple back surgeries. 9. ALLERGIC TO PENICILLIN AND RIFAMPIN. 10. Right upper quadrant pain, rule out bile duct stone PLAN: At this point, is to continue all the medication as per the ID. We will get a sonogram of the liver to make sure there is no space occupying lesion or biliary obstruction. We will also order acute hepatitis panel to confirm the diagnosis of hep C. Hepatitis C virus RNA by PCR method is ordered. If the viral load is high ,then may need treatment Patient definitely needs ERCP. I will try to schedule it tomorrow if GI lab permit. Or could not schedule patient today for ERCP because of unavailability of C-arm. Patient will be scheduled for ERCP on Wednesday. Consultation Date/Type/Reason Admit Date/Time Aug 25, 2016 at 12:43 Initial Consult Date 08/24/16 Type of Consultation: NEPHROLOGY Referring Provider: JOHN HOYOS 24 HR Interval Summary Free Text/Dictation Patient continues to have abdominal pain Exam/Review of Systems Vital Signs Vitals Vital Signs Date Time Temp Pulse Resp B/P Pulse Ox O2 Delivery O2 Flow Rate FiO2 08/28/16 08:02 98.3 75 14 106/62 95 Room Air 08/24/16 08:45 2.0 Intake and Output 08/27/16 08/27/16 08/28/16 15:00 23:00 07:00 Intake Total 300 ml 1750 ml 1250 ml Balance 300 ml 1750 ml 1250 ml Exam Constitutional: alert, oriented, well developed Psych: nl mood/affect, no complaints Head: atraumatic, normocephalic Eyes: EOMI, PERRL, nl conjunctiva, nl lids, nl sclera ENMT: nl external ears & nose, nl lips & teeth, nl nasal mucosa & septum Neck: non-tender, supple Respiratory: clear to auscultation, normal air movement Cardiovascular: nl pulses, regular rate and rhythm Gastrointestinal: nl liver, spleen, non-tender, soft Musculoskeletal: nl extremities to inspection, nl gait and stance Extremities: normal pulses Neurological: TRANSPORT RN II-XII intact, nl mental status, nl speech, nl strength Skin: nl turgor, No rash or lesions Lymph: nl lymph nodes Results Result Diagram: 08/28/16 0805 08/28/16 0510 Results 24 hrs Laboratory Tests Test 08/28/16 05:10 08/28/16 08:05 08/28/16 11:46 Sodium Level 138 Potassium Level 3.7 Chloride Level 103 Carbon Dioxide Level 22 Anion Gap 17 #H Blood Urea Nitrogen 12 Creatinine 1.01 H Glucose Level 104 Calcium Level 8.4 Hepatitis B Surface Antibody NEGATIVE White Blood Count 3.2 #L Red Blood Count 3.18 L Hemoglobin 9.0 L Hematocrit 27.9 L Mean Corpuscular Volume 87.7 Mean Corpuscular Hemoglobin 28.3 L Mean Corpuscular Hemoglobin Concent 32.3 Red Cell Distribution Width 14.6 H Platelet Count 161 Mean Platelet Volume 11.5 H Neutrophils % 54.8 Lymphocytes % 33.1 Monocytes % 8.4 Eosinophils % 3.1 Basophils % 0.3 Nucleated Red Blood Cells % 0.0 Neutrophils # 1.8 Lymphocytes # 1.1 Monocytes # 0.3 Eosinophils # 0.1 Basophils # 0.0 Nucleated Red Blood Cells # 0.0 Lab Scanned Report REFERENCE LAB Medications Medications Current Medications Atenolol (Tenormin) 100 mg DAILY PO Last administered on 08/27/16 10:16; Admin Dose 100 MG; Start 08/24/16 at 09:00 Cyclobenzaprine HCl (Flexeril) 10 mg BID PO Last administered on 08/28/16 09: 20; Admin Dose 10 MG; Start 08/23/16 at 21:00 Gabapentin (Neurontin) 800 mg TID PO Last administered on 08/28/16 14:44; Admin Dose 800 MG; Start 08/23/16 at 21:00 Oxycodone HCl (Roxicodone) 30 mg QID PRN PO PAIN Last administered on 06:02; Admin Dose 30 MG; Start 08/23/16 at 18:30 Valsartan (Diovan) 320 mg DAILY PO Last administered on 08/27/16 10:17; Admin Dose 320 MG; Start 08/24/16 at 09:00 Pantoprazole (Protonix Tab) 40 mg DAILY@06 PO Last administered on 08/27/16 05 :22; Admin Dose 40 MG; Start 08/24/16 at 06:00 Ondansetron HCl (Zofran Inj) 4 mg Q6H PRN IV NAUSEA AND/OR VOMITING Last administered on 08/27/16 10:48; Admin Dose 4 MG; Start 08/23/16 at 19:00 Acetaminophen (Tylenol Tab) 650 mg Q6H PRN PO PAIN AND OR ELEVATED TEMP Last administered on 08/26/16 08:23; Admin Dose 650 MG; Start 08/23/16 at 19:00 Enoxaparin Sodium (Lovenox) 40 mg DAILY SC Last administered on 08/27/16 10:30 ; Admin Dose 40 MG; Start 08/24/16 at 09:00; Status Future Hold Hydromorphone HCl (Dilaudid) 1 mg Q4H PRN IV PAIN Last administered on 14:18; Admin Dose 1 MG; Start 08/23/16 at 19:00 Nystatin 2 ml 2 ml QID PO Last administered on 08/28/16 14:43; Admin Dose 2 ML ; Start 08/23/16 at 21:00 Dextrose/Sodium Chloride (D5-1/2ns) 1,000 ml @ 70 mls/hr [id number] IV Last administered on 08/27/16 20:26; Admin Dose 80 MLS/HR; Start 08/23/16 at 20:00 Docusate Sodium 100 mg 100 mg BID PO Last administered on 08/28/16 09:18; Admin Dose 100 MG; Start 08/23/16 at 21:00 Linezolid (Zyvox 600mg/D5W (Pmx)) 300 ml @ 300 mls/hr Q12 IVPB Last administered on 08/28/16 09:16; Admin Dose 300 MLS/HR; Start 08/24/16 at 09:00 Diphenhydramine HCl (Benadryl) 25 mg Q6H PRN IV ITCHING Last administered on 02:19; Admin Dose 25 MG; Start 08/24/16 at 02:30 Non-Formulary Medication 1 ea DAILY PO Last administered on 08/28/16 12:05; Admin Dose 1 EA; Start 08/26/16 at 09:00 Non-Formulary Medication 1 ea 1 ea DAILY PO Last administered on 08/28/16 12: 05; Admin Dose 1 EA; Start 08/26/16 at 09:00 Aztreonam 50 ml @ 100 mls/hr Q8 IVPB Last administered on 08/28/16 14:44; Admin Dose 100 MLS/HR; Start 08/28/16 at 11:00; Stop 08/29/16 at 10:59 Metronidazole (Flagyl 500 Mg (Pmx)) 100 ml @ 100 mls/hr Q8 IVPB ; Start at 11:00; Stop 08/29/16 at 10:59 RAI LR MD Aug 28, 2016 16:28
[2016-08-28] MEDS: metroNIDAZOLE 500 MG/NS (PMX) 100 ML IVPB SCH (16:35)
--- NOTE | 2016-08-28 17:17 | PN ---
Date/Time of Note Date/Time of Note DATE: 08/28/16 TIME: 17:13 Assessment/Plan VTE Prophylaxis VTE Prophylaxis Intervention: SCD's Lines/Catheters IV [facility]from [facility] Peripheral IV Urinary Cath still in place: No Assessment/Plan Chief Complaint/Hosp Course Assessment and plan: -Infection of the surgical site of right wrist. Dr. Flora calixto is following infection disease consultation. - S/p recent surgical intervention of an MRSA abscess to the volar aspect of the right wrist at [place] on 04 August by Moe Russo. -HIV, AIDS. Pending CD4 and viral load count. Continue antiretroviral therapy. -Hepatitis C -Status post back surgery with anterior approach with subsequent MRSA infection -History of esophageal CA -Acute kidney injury. Dr. Cruz is following in nephrology consultation. -Hypertension, continue Diovan and atenolol. -Elevated alkaline phosphate, Dr. Costello is following in gastroenterology consultation, pending ERCP. Further recommendations based on clinical course. Plan of care discussed with Dr. Haddad. Problems: Subjective 24 Hr Interval Summary Free Text/Dictation Patient's complains of right wrist pain, controlled with current medication, remains afebrile, awaits for ERCP. Exam/Review of Systems Vital Signs Vitals Vital Signs Date Time Temp Pulse Resp B/P Pulse Ox O2 Delivery O2 Flow Rate FiO2 08/28/16 08:02 98.3 75 14 106/62 95 Room Air 08/24/16 08:45 2.0 Intake and Output 08/27/16 08/27/16 08/28/16 15:00 23:00 07:00 Intake Total 300 ml 1750 ml 1250 ml Balance 300 ml 1750 ml 1250 ml Exam Constitutional: alert, oriented Psych: nl mood/affect, no complaints Head: atraumatic, normocephalic Eyes: nl conjunctiva ENMT: nl external ears & nose Respiratory: clear to auscultation, normal air movement Cardiovascular: nl pulses, regular rate and rhythm Gastrointestinal: non-tender, soft Musculoskeletal: nl extremities to inspection Extremities: normal pulses Neurological: [employer] II-XII intact Skin: other (right wrist surgical incision intact with sutures, right wrist wound ) Results Result Diagram: 08/28/16 0805 08/28/16 0510 Results 24 hrs Laboratory Tests Test 08/28/16 05:10 08/28/16 08:05 08/28/16 11:46 Sodium Level 138 Potassium Level 3.7 Chloride Level 103 Carbon Dioxide Level 22 Anion Gap 17 #H Blood Urea Nitrogen 12 Creatinine 1.01 H Glucose Level 104 Calcium Level 8.4 Hepatitis B Surface Antibody NEGATIVE White Blood Count 3.2 #L Red Blood Count 3.18 L Hemoglobin 9.0 L Hematocrit 27.9 L Mean Corpuscular Volume 87.7 Mean Corpuscular Hemoglobin 28.3 L Mean Corpuscular Hemoglobin Concent 32.3 Red Cell Distribution Width 14.6 H Platelet Count 161 Mean Platelet Volume 11.5 H Neutrophils % 54.8 Lymphocytes % 33.1 Monocytes % 8.4 Eosinophils % 3.1 Basophils % 0.3 Nucleated Red Blood Cells % 0.0 Neutrophils # 1.8 Lymphocytes # 1.1 Monocytes # 0.3 Eosinophils # 0.1 Basophils # 0.0 Nucleated Red Blood Cells # 0.0 Lab Scanned Report REFERENCE LAB Medications Medications Current Medications Atenolol (Tenormin) 100 mg DAILY PO Last administered on 08/27/16 10:16; Admin Dose 100 MG; Start 08/24/16 at 09:00 Cyclobenzaprine HCl (Flexeril) 10 mg BID PO Last administered on 08/28/16 09: 20; Admin Dose 10 MG; Start 08/23/16 at 21:00 Gabapentin (Neurontin) 800 mg TID PO Last administered on 08/28/16 14:44; Admin Dose 800 MG; Start 08/23/16 at 21:00 Oxycodone HCl (Roxicodone) 30 mg QID PRN PO PAIN Last administered on 06:02; Admin Dose 30 MG; Start 08/23/16 at 18:30 Valsartan (Diovan) 320 mg DAILY PO Last administered on 08/27/16 10:17; Admin Dose 320 MG; Start 08/24/16 at 09:00 Pantoprazole (Protonix Tab) 40 mg DAILY@06 PO Last administered on 08/27/16 05 :22; Admin Dose 40 MG; Start 08/24/16 at 06:00 Ondansetron HCl (Zofran Inj) 4 mg Q6H PRN IV NAUSEA AND/OR VOMITING Last administered on 08/27/16 10:48; Admin Dose 4 MG; Start 08/23/16 at 19:00 Acetaminophen (Tylenol Tab) 650 mg Q6H PRN PO PAIN AND OR ELEVATED TEMP Last administered on 08/26/16 08:23; Admin Dose 650 MG; Start 08/23/16 at 19:00 Enoxaparin Sodium (Lovenox) 40 mg DAILY SC Last administered on 08/27/16 10:30 ; Admin Dose 40 MG; Start 08/24/16 at 09:00; Status Future Hold Hydromorphone HCl (Dilaudid) 1 mg Q4H PRN IV PAIN Last administered on 14:18; Admin Dose 1 MG; Start 08/23/16 at 19:00 Nystatin 2 ml 2 ml QID PO Last administered on 08/28/16 14:43; Admin Dose 2 ML ; Start 08/23/16 at 21:00 Dextrose/Sodium Chloride (D5-1/2ns) 1,000 ml @ 70 mls/hr [id number] IV Last administered on 08/27/16 20:26; Admin Dose 80 MLS/HR; Start 08/23/16 at 20:00 Docusate Sodium 100 mg 100 mg BID PO Last administered on 08/28/16 09:18; Admin Dose 100 MG; Start 08/23/16 at 21:00 Linezolid (Zyvox 600mg/D5W (Pmx)) 300 ml @ 300 mls/hr Q12 IVPB Last administered on 08/28/16 09:16; Admin Dose 300 MLS/HR; Start 08/24/16 at 09:00 Diphenhydramine HCl (Benadryl) 25 mg Q6H PRN IV ITCHING Last administered on 02:19; Admin Dose 25 MG; Start 08/24/16 at 02:30 Non-Formulary Medication 1 ea DAILY PO Last administered on 08/28/16 12:05; Admin Dose 1 EA; Start 08/26/16 at 09:00 Non-Formulary Medication 1 ea 1 ea DAILY PO Last administered on 08/28/16 12: 05; Admin Dose 1 EA; Start 08/26/16 at 09:00 Aztreonam 50 ml @ 100 mls/hr Q8 IVPB Last administered on 08/28/16 14:44; Admin Dose 100 MLS/HR; Start 08/28/16 at 11:00; Stop 08/29/16 at 10:59 Metronidazole (Flagyl 500 Mg (Pmx)) 100 ml @ 100 mls/hr Q8 IVPB Last administered on 08/28/16t 16:35; Admin Dose 100 MLS/HR; Start 08/28/16 at 11:00 ; Stop 08/29/16 at 10:59 KRISTEL LEVY Aug 28, 2016 17:17
[2016-08-28 19:49] VITALS: BP 129/70; RESP 18
[2016-08-29] MEDS: metroNIDAZOLE 500 MG/NS (PMX) 100 ML IVPB SCH ×2 (00:53→06:08)
[2016-08-29] MEDS: oxyCODONE 15 MG TAB PO PRN ×3 (00:54→21:38)
[2016-08-29] MEDS: AZTREONAM 1 GM/NS (PMX) 50 ML IVPB SCH ×2 (02:07→07:42)
[2016-08-29] MEDS: HYDROmorphONE 1 MG/ML SYG IV PRN ×5 (03:47→22:54)
[2016-08-29] MEDS: PANTOPRAZOLE (EC) 40 MG TAB PO SCH (06:08)
[2016-08-29 06:14] LABS: ADD SCAN DIFF NO
[2016-08-29 06:36] LABS: BASOPHILS % 0.3 % (0.0-2.0); EOSINOPHILS # 0.1 10^3/ul (0.0-0.5); EOSINOPHILS % 4.4 % (0.0-7.0); HEMATOCRIT 29.3 % (37.0-47.0); HEMOGLOBIN 9.7 g/dl (12.0-16.0); LYMPHOCYTES % 32.9 % (15.0-51.0); MEAN CORPUSCULAR HEMOGLOBIN 28.5 pg (29.0-33.0); MEAN CORPUSCULAR HGB CONC 33.1 g/dl (32.0-37.0); MEAN CORPUSCULAR VOLUME 86.2 fl (82.0-101.0); MEAN PLATELET VOLUME 11.6 fl (7.4-10.4); MONOCYTE # 0.4 10^3/ul (0.3-0.9); MONOCYTES % 12.4 % (0.0-11.0); NEUTROPHIL # 1.5 10^3/ul (1.6-7.5); PLATELET COUNT 164 10^3/UL (140-415); RED CELL DISTRIBUTION WIDTH 14.7 % (11.5-14.5)
[2016-08-29 06:52] LABS: POTASSIUM 3.6 mmol/L (3.5-5.1)
[2016-08-29 06:54] LABS: CREATININE 0.92 mg/dl (0.44-1.00)
[2016-08-29 06:55] LABS: CALCIUM 8.4 mg/dl (8.4-10.2)
[2016-08-29 08:12] VITALS: BP 105/58; RESP 18
[2016-08-29] MEDS: NYSTATIN SUSP 5 ML CUP PO SCH ×4 (08:19→21:38)
[2016-08-29] MEDS: ETRAVIRINE 100 MG TABLET PO SCH ×2 (08:19→21:37)
[2016-08-29] MEDS: LINEZOLID 600 MG/D5W (PMX) 300 ML IVPB SCH ×2 (08:19→21:37)
[2016-08-29] MEDS: CYCLOBENZAPRINE 10 MG TAB PO SCH ×2 (08:19→21:37)
[2016-08-29] MEDS: GABAPENTIN 400 MG CAP PO SCH ×3 (08:20→21:38)
[2016-08-29] MEDS: DOCUSATE SODIUM 100 MG CAP PO SCH ×2 (08:20→21:38)
[2016-08-29] MEDS: VALSARTAN 160 MG TAB PO SCH (08:21)
[2016-08-29] MEDS: ATENOLOL 100 MG TAB PO SCH (08:21)
[2016-08-29] MEDS: DESCOVY PO SCH (08:48)
[2016-08-29] MEDS: PREZCOBIX PO SCH (08:48)
[2016-08-29] MEDS: ONDANSETRON 4 MG INJ IV PRN (09:58)
--- NOTE | 2016-08-29 10:23 | CONS ---
GERALDINE VICENTE 08/29/16 1023: Date/Time of Note Date/Time of Note DATE: 08/29/16 TIME: 10:21 Assessment/Plan Assessment/Plan Additional Assessment/Plan - infection near the surgical site of R volar wrist, likely due to MRSA--dec erythema, edema, Cx neg - HIV/AIDS, AT4=222, EN=7003 copies - recent LLL cellulitis - neutropenia, improving - possible biliary dilatation without filling defect or choledocholithiasis - surgery to R volar hand - h/o pneumocystis pneumonia - h/o complicated surgical site infections of the back due to MRSA (years ago) - s/p multiple back surgeries, with anterior and posterior approaches, that were complicated by MRSA infections. - past HCV exposure - HBV Ab+ status - esophageal CA - h/o thrush per Pt - h/o endometriosis, s/p BEAR-BSO - s/p appendectomy, CCY - s/p tonsillectomy, adenoidectomy - adverse reaction to vancomycin at ER - allergy to PCN and rifampin recommendations - Hopefully pt will have ERCP soon - pending: hepatitis B surface antibody. Pt does not have sufficient viral load to order antiretrovial resistance testing - cellulitis: continue linezolid (08/24/2016-), planned through 08/31/2016. Monitor CBC - I ordered two days of aztreonam and metronidazole for prophylaxis through the end of tomorrow because Pt was neutropenic for several days - continue Descovy and Intelence for HIV. If her GFR worsens, will recommend renally dose tenofovir and emtricitabine separately - continue Bactrim DS once daily for pneumocystis prophylaxis - CBC in AM d/w DR Renteria Consultation Date/Type/Reason Admit Date/Time Aug 25, 2016 at 12:43 Initial Consult Date 08/24/16 Type of Consultation: ID Referring Provider: JOHN HOYOS 24 HR Interval Summary Free Text/Dictation Alert NAD, no new c/o. Denies chills, fever, sweats, n/v/d ERCP pending Constitutional: no complaints Exam/Review of Systems Vital Signs Vitals Vital Signs Date Time Temp Pulse Resp B/P Pulse Ox O2 Delivery O2 Flow Rate FiO2 08/29/16 08:12 97.6 71 18 105/58 96 08/28/16 08:02 Room Air Intake and Output 08/28/16 08/28/16 08/29/16 15:00 23:00 07:00 Intake Total 360 ml 1380 ml Balance 360 ml 1380 ml Exam Constitutional: alert, oriented, well developed Psych: nl mood/affect, no complaints Head: atraumatic, normocephalic Eyes: EOMI, nl conjunctiva ENMT: nl external ears & nose Neck: non-tender, supple Respiratory: clear to auscultation, normal air movement Cardiovascular: regular rate and rhythm Gastrointestinal: bowel sounds, non-tender, soft Extremities: normal pulses Neurological: nl mental status, nl speech, nl strength Results Result Diagram: 08/29/16 0600 08/29/16 0600 Results 24 hrs Laboratory Tests Test 08/28/16 11:46 08/29/16 06:00 Lab Scanned Report REFERENCE LAB White Blood Count 3.0 L Red Blood Count 3.40 L Hemoglobin 9.7 L Hematocrit 29.3 L Mean Corpuscular Volume 86.2 Mean Corpuscular Hemoglobin 28.5 L Mean Corpuscular Hemoglobin Concent 33.1 Red Cell Distribution Width 14.7 H Platelet Count 164 Mean Platelet Volume 11.6 H Neutrophils % 50.0 Lymphocytes % 32.9 Monocytes % 12.4 H Eosinophils % 4.4 Basophils % 0.3 Nucleated Red Blood Cells % 0.0 Neutrophils # 1.5 L Lymphocytes # 1.0 Monocytes # 0.4 Eosinophils # 0.1 Basophils # 0.0 Nucleated Red Blood Cells # 0.0 Sodium Level 137 Potassium Level 3.6 Chloride Level 100 Carbon Dioxide Level 28 Anion Gap 13 Blood Urea Nitrogen 11 Creatinine 0.92 Glucose Level 117 Calcium Level 8.4 Medications Medications Current Medications Atenolol (Tenormin) 100 mg DAILY PO Last administered on 08/27/16 10:16; Admin Dose 100 MG; Start 08/24/16 at 09:00 Cyclobenzaprine HCl (Flexeril) 10 mg BID PO Last administered on 08/29/16 08: 19; Admin Dose 10 MG; Start 08/23/16 at 21:00 Gabapentin (Neurontin) 800 mg TID PO Last administered on 08/29/16 08:20; Admin Dose 800 MG; Start 08/23/16 at 21:00 Oxycodone HCl (Roxicodone) 30 mg QID PRN PO PAIN Last administered on 00:54; Admin Dose 30 MG; Start 08/23/16 at 18:30 Valsartan (Diovan) 320 mg DAILY PO Last administered on 08/27/16 10:17; Admin Dose 320 MG; Start 08/24/16 at 09:00 Pantoprazole (Protonix Tab) 40 mg DAILY@06 PO Last administered on 08/29/16 06 :08; Admin Dose 40 MG; Start 08/24/16 at 06:00 Ondansetron HCl (Zofran Inj) 4 mg Q6H PRN IV NAUSEA AND/OR VOMITING Last administered on 08/29/16 09:58; Admin Dose 4 MG; Start 08/23/16 at 19:00 Acetaminophen (Tylenol Tab) 650 mg Q6H PRN PO PAIN AND OR ELEVATED TEMP Last administered on 08/26/16 08:23; Admin Dose 650 MG; Start 08/23/16 at 19:00 Enoxaparin Sodium (Lovenox) 40 mg DAILY SC Last administered on 08/27/16 10:30 ; Admin Dose 40 MG; Start 08/24/16 at 09:00; Status Future Hold Hydromorphone HCl (Dilaudid) 1 mg Q4H PRN IV PAIN Last administered on 08:19; Admin Dose 1 MG; Start 08/23/16 at 19:00 Nystatin 2 ml 2 ml QID PO Last administered on 08/29/16 08:19; Admin Dose 2 ML ; Start 08/23/16 at 21:00 Dextrose/Sodium Chloride (D5-1/2ns) 1,000 ml @ 70 mls/hr [id number] IV Last administered on 08/28/16 20:15; Admin Dose 70 MLS/HR; Start 08/23/16 at 20:00 Docusate Sodium 100 mg 100 mg BID PO Last administered on 08/29/16 08:20; Admin Dose 100 MG; Start 08/23/16 at 21:00 Linezolid (Zyvox 600mg/D5W (Pmx)) 300 ml @ 300 mls/hr Q12 IVPB Last administered on 08/29/16 08:19; Admin Dose 300 MLS/HR; Start 08/24/16 at 09:00 Diphenhydramine HCl (Benadryl) 25 mg Q6H PRN IV ITCHING Last administered on 02:19; Admin Dose 25 MG; Start 08/24/16 at 02:30 Non-Formulary Medication 1 ea DAILY PO Last administered on 08/28/16 12:05; Admin Dose 1 EA; Start 08/26/16 at 09:00 Non-Formulary Medication 1 ea 1 ea DAILY PO Last administered on 08/28/16 12: 05; Admin Dose 1 EA; Start 08/26/16 at 09:00 Aztreonam 50 ml @ 100 mls/hr Q8 IVPB Last administered on 08/29/16 07:42; Admin Dose 100 MLS/HR; Start 08/28/16 at 11:00; Stop 08/29/16 at 10:59 Metronidazole (Flagyl 500 Mg (Pmx)) 100 ml @ 100 mls/hr Q8 IVPB Last administered on 08/29/16 06:08; Admin Dose 100 MLS/HR; Start 08/28/16 at 11:00 ; Stop 08/29/16 at 10:59 DELON RENTERIA M.D. 08/31/16 1129: Assessment/Plan Assessment/Plan Additional Assessment/Plan Myra attestation: I discussed the management with BRISAS Vicente and agree with above. Exam/Review of Systems Results Result Diagram: 08/29/16 0600 08/29/16 06 GERALDINE VICENTE Aug 29, 2016 10:23 DELON RENTERIA M.D. August 31, 2016 11:29
--- NOTE | 2016-08-29 10:38 | CONS ---
Date/Time of Note Date/Time of Note DATE: 08/29/16 TIME: 10:36 Assessment/Plan Assessment/Plan Additional Assessment/Plan 1. Acute kidney injury secondary to prerenal azotemia.- cr improved with IVF hydration 2. 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 3. History of HIV and hepatitis C. 4. Hyperphosphatemia with a phosphorus 5.1. 5. History of multiple surgeries before. 6. History of complicated surgical site infection of the back due to methicillin-resistant Staphylococcus aureus. 7. History of multiple back surgeries. 8. History of human immunodeficiency virus AIDS with CD4 less than 50, and detectable viral load, according to patient. 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 will follow up s/p GI consult Consultation Date/Type/Reason Admit Date/Time Aug 25, 2016 at 12:43 Initial Consult Date 08/24/16 Type of Consultation: NEPHROLOGY Reason for Consultation Hyponatremia, LEONIE Referring Provider: JOHN HOYOS 24 HR Interval Summary Free Text/Dictation s/p IVF for hydration, Cr stable, Na improved to Normal Exam/Review of Systems Vital Signs Vitals Vital Signs Date Time Temp Pulse Resp B/P Pulse Ox O2 Delivery O2 Flow Rate FiO2 08/29/16 08:12 97.6 71 18 105/58 96 08/28/16 08:02 Room Air Intake and Output 08/28/16 08/28/16 08/29/16 15:00 23:00 07:00 Intake Total 360 ml 1380 ml Balance 360 ml 1380 ml Exam GENERAL: Awake, alert. HEENT: Normal. Oropharynx clear. NECK: Supple, no JVD, no lymphadenopathy. LUNGS: Clear to auscultation. No crackles, no wheezes. HEART: S1, S2, with regular rhythm, no murmur. ABDOMEN: Soft, nontender, nondistended. Bowel sounds are present. EXTREMITIES: No clubbing, cyanosis, or edema. The patient has right wrist erythema, swelling, tender to palpation. NEUROLOGICAL: Nonfocal, intact. PSYCHIATRIC: Appropriate affect and mood. Results Result Diagram: 08/29/16 0600 08/29/16 0600 Results 24 hrs Laboratory Tests Test 08/28/16 11:46 08/29/16 06:00 Lab Scanned Report REFERENCE LAB White Blood Count 3.0 L Red Blood Count 3.40 L Hemoglobin 9.7 L Hematocrit 29.3 L Mean Corpuscular Volume 86.2 Mean Corpuscular Hemoglobin 28.5 L Mean Corpuscular Hemoglobin Concent 33.1 Red Cell Distribution Width 14.7 H Platelet Count 164 Mean Platelet Volume 11.6 H Neutrophils % 50.0 Lymphocytes % 32.9 Monocytes % 12.4 H Eosinophils % 4.4 Basophils % 0.3 Nucleated Red Blood Cells % 0.0 Neutrophils # 1.5 L Lymphocytes # 1.0 Monocytes # 0.4 Eosinophils # 0.1 Basophils # 0.0 Nucleated Red Blood Cells # 0.0 Sodium Level 137 Potassium Level 3.6 Chloride Level 100 Carbon Dioxide Level 28 Anion Gap 13 Blood Urea Nitrogen 11 Creatinine 0.92 Glucose Level 117 Calcium Level 8.4 Medications Medications Current Medications Atenolol (Tenormin) 100 mg DAILY PO Last administered on 08/27/16 10:16; Admin Dose 100 MG; Start 08/24/16 at 09:00 Cyclobenzaprine HCl (Flexeril) 10 mg BID PO Last administered on 08/29/16 08: 19; Admin Dose 10 MG; Start 08/23/16 at 21:00 Gabapentin (Neurontin) 800 mg TID PO Last administered on 08/29/16 08:20; Admin Dose 800 MG; Start 08/23/16 at 21:00 Oxycodone HCl (Roxicodone) 30 mg QID PRN PO PAIN Last administered on 00:54; Admin Dose 30 MG; Start 08/23/16 at 18:30 Valsartan (Diovan) 320 mg DAILY PO Last administered on 08/27/16 10:17; Admin Dose 320 MG; Start 08/24/16 at 09:00 Pantoprazole (Protonix Tab) 40 mg DAILY@06 PO Last administered on 08/29/16 06 :08; Admin Dose 40 MG; Start 08/24/16 at 06:00 Ondansetron HCl (Zofran Inj) 4 mg Q6H PRN IV NAUSEA AND/OR VOMITING Last administered on 08/29/16 09:58; Admin Dose 4 MG; Start 08/23/16 at 19:00 Acetaminophen (Tylenol Tab) 650 mg Q6H PRN PO PAIN AND OR ELEVATED TEMP Last administered on 08/26/16 08:23; Admin Dose 650 MG; Start 08/23/16 at 19:00 Enoxaparin Sodium (Lovenox) 40 mg DAILY SC Last administered on 08/27/16 10:30 ; Admin Dose 40 MG; Start 08/24/16 at 09:00; Status Future Hold Hydromorphone HCl (Dilaudid) 1 mg Q4H PRN IV PAIN Last administered on 08:19; Admin Dose 1 MG; Start 08/23/16 at 19:00 Nystatin 2 ml 2 ml QID PO Last administered on 08/29/16 08:19; Admin Dose 2 ML ; Start 08/23/16 at 21:00 Dextrose/Sodium Chloride (D5-1/2ns) 1,000 ml @ 70 mls/hr [id number] IV Last administered on 08/28/16 20:15; Admin Dose 70 MLS/HR; Start 08/23/16 at 20:00 Docusate Sodium 100 mg 100 mg BID PO Last administered on 08/29/16 08:20; Admin Dose 100 MG; Start 08/23/16 at 21:00 Linezolid (Zyvox 600mg/D5W (Pmx)) 300 ml @ 300 mls/hr Q12 IVPB Last administered on 08/29/16 08:19; Admin Dose 300 MLS/HR; Start 08/24/16 at 09:00 Diphenhydramine HCl (Benadryl) 25 mg Q6H PRN IV ITCHING Last administered on 02:19; Admin Dose 25 MG; Start 08/24/16 at 02:30 Non-Formulary Medication 1 ea DAILY PO Last administered on 08/28/16 12:05; Admin Dose 1 EA; Start 08/26/16 at 09:00 Non-Formulary Medication 1 ea 1 ea DAILY PO Last administered on 08/28/16 12: 05; Admin Dose 1 EA; Start 08/26/16 at 09:00 Aztreonam 50 ml @ 100 mls/hr Q8 IVPB Last administered on 08/29/16 07:42; Admin Dose 100 MLS/HR; Start 08/28/16 at 11:00; Stop 08/29/16 at 10:59 Metronidazole (Flagyl 500 Mg (Pmx)) 100 ml @ 100 mls/hr Q8 IVPB Last administered on 08/29/16t 06:08; Admin Dose 100 MLS/HR; Start 08/28/16 at 11:00 ; Stop 08/29/16 at 10:59 ELLIS EISENBERG MD Aug 29, 2016 10:38
[2016-08-29] MEDS: DEXTROSE 5%-0.45% NACL 1,000 ML IV SCH ×2 (12:03→22:54)
--- NOTE | 2016-08-29 16:39 | CONS ---
Date/Time of Note Date/Time of Note DATE: 08/29/16 TIME: 16:38 Assessment/Plan Assessment/Plan Additional Assessment/Plan Additional Assessment/Plan Additional Assessment/Plan IMPRESSION: 1. Human immunodeficiency virus. 2. History of hepatitis C. 3. History of esophageal cancer. 4. Elevated alkaline phosphatase. 5. Anemia. 6. Cellulitis of the left lower extremity. 7. Infection of the surgical site of the right arm. 8. Failed multiple back surgeries. 9. ALLERGIC TO PENICILLIN AND RIFAMPIN. 10. Right upper quadrant pain, rule out bile duct stone PLAN: At this point, is to continue all the medication as per the ID. We will get a sonogram of the liver to make sure there is no space occupying lesion or biliary obstruction. We will also order acute hepatitis panel to confirm the diagnosis of hep C. Hepatitis C virus RNA by PCR method is ordered. If the viral load is high ,then may need treatment Patient definitely needs ERCP. I will try to schedule it tomorrow if GI lab permit. Or could not schedule patient today for ERCP because of unavailability of C-arm. Patient will be scheduled for ERCP tomorrow Consultation Date/Type/Reason Admit Date/Time Aug 25, 2016 at 12:43 Initial Consult Date 08/24/16 Type of Consultation: NEPHROLOGY Referring Provider: JOHN HOYOS 24 HR Interval Summary Free Text/Dictation Patient complains of right upper quadrant pain Exam/Review of Systems Vital Signs Vitals Vital Signs Date Time Temp Pulse Resp B/P Pulse Ox O2 Delivery O2 Flow Rate FiO2 08/29/16 08:12 97.6 71 18 105/58 96 08/28/16 08:02 Room Air Intake and Output 08/28/16 08/28/16 08/29/16 15:00 23:00 07:00 Intake Total 360 ml 1380 ml Balance 360 ml 1380 ml Exam Constitutional: alert, oriented, well developed Psych: nl mood/affect, no complaints Head: atraumatic, normocephalic Eyes: EOMI, PERRL, nl conjunctiva, nl lids, nl sclera ENMT: nl external ears & nose, nl lips & teeth, nl nasal mucosa & septum Neck: non-tender, supple Respiratory: clear to auscultation, normal air movement Cardiovascular: nl pulses, regular rate and rhythm Gastrointestinal: nl liver, spleen, non-tender, soft Musculoskeletal: nl extremities to inspection, nl gait and stance Extremities: normal pulses Neurological: TRUCK LOADER AND UNLOADER II-XII intact, nl mental status, nl speech, nl strength Skin: nl turgor, No rash or lesions Lymph: nl lymph nodes Results Result Diagram: 08/29/16 0600 08/29/16 0600 Results 24 hrs Laboratory Tests Test 08/29/16 06:00 White Blood Count 3.0 L Red Blood Count 3.40 L Hemoglobin 9.7 L Hematocrit 29.3 L Mean Corpuscular Volume 86.2 Mean Corpuscular Hemoglobin 28.5 L Mean Corpuscular Hemoglobin Concent 33.1 Red Cell Distribution Width 14.7 H Platelet Count 164 Mean Platelet Volume 11.6 H Neutrophils % 50.0 Lymphocytes % 32.9 Monocytes % 12.4 H Eosinophils % 4.4 Basophils % 0.3 Nucleated Red Blood Cells % 0.0 Neutrophils # 1.5 L Lymphocytes # 1.0 Monocytes # 0.4 Eosinophils # 0.1 Basophils # 0.0 Nucleated Red Blood Cells # 0.0 Sodium Level 137 Potassium Level 3.6 Chloride Level 100 Carbon Dioxide Level 28 Anion Gap 13 Blood Urea Nitrogen 11 Creatinine 0.92 Glucose Level 117 Calcium Level 8.4 Medications Medications Current Medications Atenolol (Tenormin) 100 mg DAILY PO Last administered on 08/27/16 10:16; Admin Dose 100 MG; Start 08/24/16 at 09:00 Cyclobenzaprine HCl (Flexeril) 10 mg BID PO Last administered on 08/29/16 08: 19; Admin Dose 10 MG; Start 08/23/16 at 21:00 Gabapentin (Neurontin) 800 mg TID PO Last administered on 08/29/16 12:02; Admin Dose 800 MG; Start 08/23/16 at 21:00 Oxycodone HCl (Roxicodone) 30 mg QID PRN PO PAIN Last administered on 16:07; Admin Dose 30 MG; Start 08/23/16 at 18:30 Valsartan (Diovan) 320 mg DAILY PO Last administered on 08/27/16 10:17; Admin Dose 320 MG; Start 08/24/16 at 09:00 Pantoprazole (Protonix Tab) 40 mg DAILY@06 PO Last administered on 08/29/16 06 :08; Admin Dose 40 MG; Start 08/24/16 at 06:00 Ondansetron HCl (Zofran Inj) 4 mg Q6H PRN IV NAUSEA AND/OR VOMITING Last administered on 08/29/16 09:58; Admin Dose 4 MG; Start 08/23/16 at 19:00 Acetaminophen (Tylenol Tab) 650 mg Q6H PRN PO PAIN AND OR ELEVATED TEMP Last administered on 08/26/16 08:23; Admin Dose 650 MG; Start 08/23/16 at 19:00 Enoxaparin Sodium (Lovenox) 40 mg DAILY SC Last administered on 08/27/16 10:30 ; Admin Dose 40 MG; Start 08/24/16 at 09:00; Status Future Hold Hydromorphone HCl (Dilaudid) 1 mg Q4H PRN IV PAIN Last administered on 13:16; Admin Dose 1 MG; Start 08/23/16 at 19:00 Nystatin 2 ml 2 ml QID PO Last administered on 08/29/16 12:02; Admin Dose 2 ML ; Start 08/23/16 at 21:00 Dextrose/Sodium Chloride (D5-1/2ns) 1,000 ml @ 70 mls/hr [id number] IV Last administered on 08/28/16 20:15; Admin Dose 70 MLS/HR; Start 08/23/16 at 20:00 Docusate Sodium 100 mg 100 mg BID PO Last administered on 08/29/16 08:20; Admin Dose 100 MG; Start 08/23/16 at 21:00 Linezolid (Zyvox 600mg/D5W (Pmx)) 300 ml @ 300 mls/hr Q12 IVPB Last administered on 08/29/16 08:19; Admin Dose 300 MLS/HR; Start 08/24/16 at 09:00 Diphenhydramine HCl (Benadryl) 25 mg Q6H PRN IV ITCHING Last administered on 02:19; Admin Dose 25 MG; Start 08/24/16 at 02:30 Non-Formulary Medication 1 ea DAILY PO Last administered on 08/28/16 12:05; Admin Dose 1 EA; Start 08/26/16 at 09:00 Non-Formulary Medication 1 ea DAILY PO Last administered on 08/28/16 12:05; Admin Dose 1 EA; Start 08/26/16 at 09:00 RAI LR MD Aug 29, 2016 16:39
[2016-08-29 19:38] VITALS: BP 154/89; RESP 19
[2016-08-30] VITALS (11 sets, daily range): BP systolic 106–138; BP diastolic 57–83; PULSE 70–78; RESP 8–20
[2016-08-30] MEDS: oxyCODONE 15 MG TAB PO PRN ×2 (01:07→21:52)
[2016-08-30] MEDS: HYDROmorphONE 1 MG/ML SYG IV PRN ×4 (03:22→18:48)
[2016-08-30] MEDS: PANTOPRAZOLE (EC) 40 MG TAB PO SCH ×2 (06:00→16:33)
[2016-08-30 06:13] LABS: ADD SCAN DIFF NO
[2016-08-30 06:17] LABS: BASOPHILS % 0.3 % (0.0-2.0); EOSINOPHILS # 0.3 10^3/ul (0.0-0.5); EOSINOPHILS % 8.4 % (0.0-7.0); HEMATOCRIT 29.6 % (37.0-47.0); HEMOGLOBIN 9.6 g/dl (12.0-16.0); LYMPHOCYTES # 1.1 10^3/ul (0.8-2.9); LYMPHOCYTES % 35.6 % (15.0-51.0); MEAN CORPUSCULAR HEMOGLOBIN 28.5 pg (29.0-33.0); MEAN CORPUSCULAR HGB CONC 32.4 g/dl (32.0-37.0); MEAN CORPUSCULAR VOLUME 87.8 fl (82.0-101.0); MEAN PLATELET VOLUME 12.5 fl (7.4-10.4); MONOCYTE # 0.4 10^3/ul (0.3-0.9); MONOCYTES % 11.7 % (0.0-11.0); NEUTROPHIL # 1.3 10^3/ul (1.6-7.5); NEUTROPHILS % 43.7 % (39.0-77.0); RED BLOOD COUNT 3.37 10^6/ul (4.20-5.40); RED CELL DISTRIBUTION WIDTH 14.9 % (11.5-14.5)
[2016-08-30] MEDS: VALSARTAN 160 MG TAB PO SCH (08:39)
[2016-08-30] MEDS: DOCUSATE SODIUM 100 MG CAP PO SCH ×2 (08:39→21:23)
[2016-08-30] MEDS: ATENOLOL 100 MG TAB PO SCH (08:40)
[2016-08-30] MEDS: LINEZOLID 600 MG/D5W (PMX) 300 ML IVPB SCH ×2 (08:54→21:23)
[2016-08-30] MEDS: GABAPENTIN 400 MG CAP PO SCH ×3 (08:55→16:33)
[2016-08-30] MEDS: CYCLOBENZAPRINE 10 MG TAB PO SCH ×2 (09:00→16:34)
[2016-08-30] MEDS: DESCOVY PO SCH ×2 (09:00→16:34)
[2016-08-30] MEDS: NYSTATIN SUSP 5 ML CUP PO SCH ×4 (09:00→21:23)
[2016-08-30] MEDS: PREZCOBIX PO SCH ×2 (09:00→16:34)
[2016-08-30] MEDS: ETRAVIRINE 100 MG TABLET PO SCH ×2 (09:00→16:33)
[2016-08-30 10:51] LABS: PLATELET ESTIMATE PLT APPEAR DECREASED
[2016-08-30 10:52] LABS: PLATELET COUNT 128 10^3/UL (140-415)
--- NOTE | 2016-08-30 10:59 | HPN ---
Date/Time of Note Date/Time of Note DATE: 08/30/16 TIME: 10:58 Interval H&P Admission Note Pt. seen H&P reviewed: No system changes RAI LR MD Aug 30, 2016 10:59
[2016-08-30] MEDS ORDERED: IOHEXOL 300MG/ML 30 ML BTL ONE (11:04)
--- NOTE | 2016-08-30 11:10 | PN ---
Date/Time of Note Date/Time of Note DATE: 08/30/16 TIME: 11:10 Assessment/Plan VTE Prophylaxis VTE Prophylaxis Intervention: other Lines/Catheters IV Catheter Type (from [facility], [place]): Saline Lock Urinary Cath still in place: No Assessment/Plan Chief Complaint/Hosp Course -Infection of the surgical site of right wrist. Dr. Hines group is following infection disease consultation. - S/p recent surgical intervention of an MRSA abscess to the volar aspect of the right wrist at [facility] on 04 August by Moe Russo. -HIV, AIDS. Pending CD4 and viral load count. Continue antiretroviral therapy. -Hepatitis C -Status post back surgery with anterior approach with subsequent MRSA infection -History of esophageal CA -Acute kidney injury. Dr. Cruz is following in nephrology consultation. -Hypertension, continue Diovan and atenolol. -Elevated alkaline phosphate, Dr. Costello is following in gastroenterology consultation, pending ERCP. Problems: Subjective 24 Hr Interval Summary Free Text/Dictation Patient is doing ok Exam/Review of Systems Vital Signs Vitals Vital Signs Date Time Temp Pulse Resp B/P Pulse Ox O2 Delivery O2 Flow Rate FiO2 08/30/16 07:48 98.0 84 20 106/57 94 08/28/16 08:02 Room Air Intake and Output 08/29/16 08/29/16 08/30/16 15:00 23:00 07:00 Intake Total 450 ml 3100 ml 900 ml Output Total 300 ml Balance 450 ml 2800 ml 900 ml Exam Constitutional: well developed Head: atraumatic, normocephalic Neck: supple Respiratory: clear to auscultation Cardiovascular: regular rate and rhythm Gastrointestinal: non-tender, soft Extremities: normal pulses Results Result Diagram: 08/30/16 0524 08/29/16 0600 Results 24 hrs Laboratory Tests Test 08/30/16 05:24 White Blood Count 3.0 L Red Blood Count 3.37 L Hemoglobin 9.6 L Hematocrit 29.6 L Mean Corpuscular Volume 87.8 Mean Corpuscular Hemoglobin 28.5 L Mean Corpuscular Hemoglobin Concent 32.4 Red Cell Distribution Width 14.9 H Platelet Count 128 #L Mean Platelet Volume 12.5 H Neutrophils % 43.7 Lymphocytes % 35.6 Monocytes % 11.7 H Eosinophils % 8.4 H Basophils % 0.3 Nucleated Red Blood Cells % 0.0 Neutrophils # 1.3 L Lymphocytes # 1.1 Monocytes # 0.4 Eosinophils # 0.3 Basophils # 0.0 Nucleated Red Blood Cells # 0.0 Platelet Estimate PLT APPEAR DECREASED Large Platelets FEW Medications Medications Current Medications Atenolol (Tenormin) 100 mg DAILY PO Last administered on 08/27/16 10:16; Admin Dose 100 MG; Start 08/24/16 at 09:00 Cyclobenzaprine HCl (Flexeril) 10 mg BID PO Last administered on 08/29/16 21: 37; Admin Dose 10 MG; Start 08/23/16 at 21:00 Gabapentin (Neurontin) 800 mg TID PO Last administered on 08/29/16 21:38; Admin Dose 800 MG; Start 08/23/16 at 21:00 Oxycodone HCl (Roxicodone) 30 mg QID PRN PO PAIN Last administered on 01:07; Admin Dose 30 MG; Start 08/23/16 at 18:30 Valsartan (Diovan) 320 mg DAILY PO Last administered on 08/27/16 10:17; Admin Dose 320 MG; Start 08/24/16 at 09:00 Pantoprazole (Protonix Tab) 40 mg DAILY@06 PO Last administered on 08/29/16 06 :08; Admin Dose 40 MG; Start 08/24/16 at 06:00 Ondansetron HCl (Zofran Inj) 4 mg Q6H PRN IV NAUSEA AND/OR VOMITING Last administered on 08/29/16 09:58; Admin Dose 4 MG; Start 08/23/16 at 19:00 Acetaminophen (Tylenol Tab) 650 mg Q6H PRN PO PAIN AND OR ELEVATED TEMP Last administered on 08/26/16 08:23; Admin Dose 650 MG; Start 08/23/16 at 19:00 Enoxaparin Sodium (Lovenox) 40 mg DAILY SC Last administered on 08/27/16 10:30 ; Admin Dose 40 MG; Start 08/24/16 at 09:00; Status Future Hold Hydromorphone HCl (Dilaudid) 1 mg Q4H PRN IV PAIN Last administered on 07:29; Admin Dose 1 MG; Start 08/23/16 at 19:00 Nystatin 2 ml 2 ml QID PO Last administered on 08/29/16 21:38; Admin Dose 2 ML ; Start 08/23/16 at 21:00 Dextrose/Sodium Chloride (D5-1/2ns) 1,000 ml @ 70 mls/hr [id number] IV Last administered on 08/29/16 22:54; Admin Dose 70 MLS/HR; Start 08/23/16 at 20:00 Docusate Sodium 100 mg 100 mg BID PO Last administered on 08/29/16 21:38; Admin Dose 100 MG; Start 08/23/16 at 21:00 Linezolid (Zyvox 600mg/D5W (Pmx)) 300 ml @ 300 mls/hr Q12 IVPB Last administered on 08/30/16 08:54; Admin Dose 300 MLS/HR; Start 08/24/16 at 09:00 Diphenhydramine HCl (Benadryl) 25 mg Q6H PRN IV ITCHING Last administered on 02:19; Admin Dose 25 MG; Start 08/24/16 at 02:30 Non-Formulary Medication 1 ea DAILY PO Last administered on 08/28/16 12:05; Admin Dose 1 EA; Start 08/26/16 at 09:00 Non-Formulary Medication 1 ea DAILY PO Last administered on 08/28/16 12:05; Admin Dose 1 EA; Start 08/26/16 at 09:00 MARIYA PAYAN Aug 30, 2016 11:10
[2016-08-30] MEDS ORDERED: LIDOCAINE 2% (SDV) 5 ML INJ ONE (11:14)
[2016-08-30] MEDS ORDERED: SUCCINYLCHOLINE CHLORIDE 100 MG/5 ML SYG IV ONE (11:14)
[2016-08-30] MEDS ORDERED: PROPOFOL 20 ML ONE (11:14)
[2016-08-30] MEDS ORDERED: PHENYLephrine (100 MCG/ML) 5ML SYG ONE (12:11)
[2016-08-30] MEDS ORDERED: INDOMETHACIN 50 MG SUPP PR ONE (13:00)
[2016-08-30] MEDS: ONDANSETRON 4 MG INJ IV PRN (14:02)
--- NOTE | 2016-08-30 15:44 | GILP ---
DATE OF PROCEDURE: PROCEDURE PERFORMED: and placement of a stent. INDICATION: A 55-year-old female with HIV has a dilated bile duct and biliary colic and also abnorm al LFT. The purpose is to evaluate the biliary system and perform therapeutic endoscopy. INFORMED CONSENT: The risk of the procedure, related and unrelated complications, anesthetic risks, alternatives discussed. Informed consent was obtained. DESCRIPTION OF PROCEDURE: The patient was brought to the OR, intubated and placed in a prone positi on, was given antibiotic Cipro prior to the procedure, and also Indocin suppository was administered . The patient was on Ringer lactate solution. The scope was passed with much ease into esophagus a nd advanced further down into stomach and duodenum. Ampulla was identified, which appeared larger t barros usual and the punctum was opening totally downwards. Selectively cannulated the bile duct with a wire, but the sphincterotome will not go in. It was very difficult. We did a large sphincterotom y and after that the sphincterotome would move freely indicating that there was a severe papillary s tenosis. cholangiogram done. Bile duct was dilated, so we did a balloon sweeping twice. The balloon would come out. At this point, we decided to deploy the stent, 10-Ukrainian 7 cm stent succes sfully deployed. That was the only stent available. The patient had excellent drainage. Scope was removed with good patient tolerance. IMPRESSION 1. Ampullary stenosis, severe. 2. Sphincterotomy done. 2. Stent deployed after balloon sweeping, 10-Ukrainian 7 cm, excellent drainage established. 3. Total fluoro time was 4 seconds. PLAN: To keep the patient n.p.o. and if she is asymptomatic, we will start her on a liquid diet and advance it further and monitor LFT. Dictated By: RAI CAO/RUBEN Conf#: [id number] DID#: [id number]
--- NOTE | 2016-08-30 17:00 | CONS ---
Date/Time of Note Date/Time of Note DATE: 08/30/16 TIME: 16:59 Assessment/Plan Assessment/Plan Additional Assessment/Plan 1. Acute kidney injury secondary to prerenal azotemia.- cr improved with IVF hydration 2. 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 3. History of HIV and hepatitis C. 4. Hyperphosphatemia with a phosphorus 5.1. 5. History of multiple surgeries before. 6. History of complicated surgical site infection of the back due to methicillin-resistant Staphylococcus aureus. 7. History of multiple back surgeries. 8. History of human immunodeficiency virus AIDS with CD4 less than 50, and detectable viral load, according to patient. 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 HEENT: Normal. Oropharynx clear. NECK: Supple, no JVD, no lymphadenopathy. LUNGS: Clear to auscultation. No crackles, no wheezes. HEART: S1, S2, with regular rhythm, no murmur. ABDOMEN: Soft, nontender, nondistended. Bowel sounds are present. EXTREMITIES: No clubbing, cyanosis, or edema. The patient has right wrist erythema, swelling, tender to palpation. NEUROLOGICAL: Nonfocal, intact. PSYCHIATRIC: Appropriate affect and mood. Results Result Diagram: 08/30/16 0524 08/29/16 0600 Results 24 hrs Laboratory Tests Test 08/30/16 05:24 White Blood Count 3.0 L Red Blood Count 3.37 L Hemoglobin 9.6 L Hematocrit 29.6 L Mean Corpuscular Volume 87.8 Mean Corpuscular Hemoglobin 28.5 L Mean Corpuscular Hemoglobin Concent 32.4 Red Cell Distribution Width 14.9 H Platelet Count 128 #L Mean Platelet Volume 12.5 H Neutrophils % 43.7 Lymphocytes % 35.6 Monocytes % 11.7 H Eosinophils % 8.4 H Basophils % 0.3 Nucleated Red Blood Cells % 0.0 Neutrophils # 1.3 L Lymphocytes # 1.1 Monocytes # 0.4 Eosinophils # 0.3 Basophils # 0.0 Nucleated Red Blood Cells # 0.0 Platelet Estimate PLT APPEAR DECREASED Large Platelets FEW Medications Medications Current Medications Atenolol (Tenormin) 100 mg DAILY PO Last administered on 08/27/16 10:16; Admin Dose 100 MG; Start 08/24/16 at 09:00 Cyclobenzaprine HCl (Flexeril) 10 mg BID PO Last administered on 08/30/16 16: 34; Admin Dose 10 MG; Start 08/23/16 at 21:00 Gabapentin (Neurontin) 800 mg TID PO Last administered on 08/30/16 16:33; Admin Dose 800 MG; Start 08/23/16 at 21:00 Oxycodone HCl (Roxicodone) 30 mg QID PRN PO PAIN Last administered on 01:07; Admin Dose 30 MG; Start 08/23/16 at 18:30 Valsartan (Diovan) 320 mg DAILY PO Last administered on 08/27/16 10:17; Admin Dose 320 MG; Start 08/24/16 at 09:00 Pantoprazole (Protonix Tab) 40 mg DAILY@06 PO Last administered on 08/30/16 16 :33; Admin Dose 40 MG; Start 08/24/16 at 06:00 Ondansetron HCl (Zofran Inj) 4 mg Q6H PRN IV NAUSEA AND/OR VOMITING Last administered on 08/30/16 14:02; Admin Dose 4 MG; Start 08/23/16 at 19:00 Acetaminophen (Tylenol Tab) 650 mg Q6H PRN PO PAIN AND OR ELEVATED TEMP Last administered on 08/26/16 08:23; Admin Dose 650 MG; Start 08/23/16 at 19:00 Enoxaparin Sodium (Lovenox) 40 mg DAILY SC Last administered on 08/27/16 10:30 ; Admin Dose 40 MG; Start 08/24/16 at 09:00; Status Future Hold Hydromorphone HCl (Dilaudid) 1 mg Q4H PRN IV PAIN Last administered on 13:44; Admin Dose 1 MG; Start 08/23/16 at 19:00 Nystatin 2 ml 2 ml QID PO Last administered on 08/30/16 16:33; Admin Dose 2 ML ; Start 08/23/16 at 21:00 Dextrose/Sodium Chloride (D5-1/2ns) 1,000 ml @ 70 mls/hr [id number] IV Last administered on 08/29/16 22:54; Admin Dose 70 MLS/HR; Start 08/23/16 at 20:00 Docusate Sodium 100 mg 100 mg BID PO Last administered on 08/29/16 21:38; Admin Dose 100 MG; Start 08/23/16 at 21:00 Linezolid (Zyvox 600mg/D5W (Pmx)) 300 ml @ 300 mls/hr Q12 IVPB Last administered on 08/30/16 08:54; Admin Dose 300 MLS/HR; Start 08/24/16 at 09:00 Diphenhydramine HCl (Benadryl) 25 mg Q6H PRN IV ITCHING Last administered on 02:19; Admin Dose 25 MG; Start 08/24/16 at 02:30 Non-Formulary Medication 1 ea DAILY PO Last administered on 08/30/16 16:34; Admin Dose 1 EA; Start 08/26/16 at 09:00 Non-Formulary Medication 1 ea DAILY PO Last administered on 08/30/16 16:34; Admin Dose 1 EA; Start 08/26/16 at 09:00 ELLIS EISENBERG MD Aug 30, 2016 17:00
--- NOTE | 2016-08-30 17:51 | CONS ---
Date/Time of Note Date/Time of Note DATE: 08/30/16 TIME: 17:47 Assessment/Plan Assessment/Plan Chief Complaint/Hosp Course assessment/impression - infection near the surgical site of R volar wrist, likely due to MRSA - HIV/AIDS, JD9=459, YV=1428 copies. 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 Monitor CBC - continue Descovy and Intelence for HIV. If her GFR worsens, I will recommend renally dose tenofovir and emtricitabine separately - Descovy is indicated also because Pt tested HBVcAb positive - continue Bactrim DS once daily for pneumocystis prophylaxis management d/w Pt, her friend Problems: Consultation Date/Type/Reason Admit Date/Time Aug 25, 2016 at 12:43 Initial Consult Date 08/24/16 Type of Consultation: NEPHROLOGY Referring Provider: JOHN HOYOS 24 HR Interval Summary Constitutional: poor po Detailed Summary Eyes: no complaints ENT: sore throat Respiratory: no complaints Cardiovascular: no complaints Gastrointestinal: pain, No diarrhea, No nausea, No vomiting Genitourinary: no complaints Musculoskeletal: bone/joint pain (R wrsit) Skin: other (swelling of LUE) Exam/Review of Systems Vital Signs Vitals Vital Signs Date Time Temp Pulse Resp B/P Pulse Ox O2 Delivery O2 Flow Rate FiO2 08/30/16 13:18 70 19 121/76 98 Nasal Cannula 2.0 08/30/16 12:38 97.7 Intake and Output 08/29/16 08/29/16 08/30/16 15:00 23:00 07:00 Intake Total 450 ml 3100 ml 900 ml Output Total 300 ml Balance 450 ml 2800 ml 900 ml Exam Constitutional: alert, oriented, well developed Psych: no complaints Head: atraumatic, normocephalic Eyes: nl conjunctiva, nl lids ENMT: mucosa pink and moist, nl lips & teeth Neck: supple Respiratory: clear to auscultation, normal air movement Cardiovascular: nl pulses, regular rate and rhythm Gastrointestinal: other (deferred because she was in pain), soft, No distended Musculoskeletal: swelling (LUE) Skin: other (ecchymoses of LUE, suture of R volar hand is clean, no e/o infection) Results Result Diagram: 08/30/16 0524 08/29/16 0600 Results 24 hrs Laboratory Tests Test 08/30/16 05:24 White Blood Count 3.0 L Red Blood Count 3.37 L Hemoglobin 9.6 L Hematocrit 29.6 L Mean Corpuscular Volume 87.8 Mean Corpuscular Hemoglobin 28.5 L Mean Corpuscular Hemoglobin Concent 32.4 Red Cell Distribution Width 14.9 H Platelet Count 128 #L Mean Platelet Volume 12.5 H Neutrophils % 43.7 Lymphocytes % 35.6 Monocytes % 11.7 H Eosinophils % 8.4 H Basophils % 0.3 Nucleated Red Blood Cells % 0.0 Neutrophils # 1.3 L Lymphocytes # 1.1 Monocytes # 0.4 Eosinophils # 0.3 Basophils # 0.0 Nucleated Red Blood Cells # 0.0 Platelet Estimate PLT APPEAR DECREASED Large Platelets FEW Medications Medications Current Medications Atenolol (Tenormin) 100 mg DAILY PO Last administered on 08/27/16 10:16; Admin Dose 100 MG; Start 08/24/16 at 09:00 Cyclobenzaprine HCl (Flexeril) 10 mg BID PO Last administered on 08/30/16 16: 34; Admin Dose 10 MG; Start 08/23/16 at 21:00 Gabapentin (Neurontin) 800 mg TID PO Last administered on 08/30/16 16:33; Admin Dose 800 MG; Start 08/23/16 at 21:00 Oxycodone HCl (Roxicodone) 30 mg QID PRN PO PAIN Last administered on 01:07; Admin Dose 30 MG; Start 08/23/16 at 18:30 Valsartan (Diovan) 320 mg DAILY PO Last administered on 08/27/16 10:17; Admin Dose 320 MG; Start 08/24/16 at 09:00 Pantoprazole (Protonix Tab) 40 mg DAILY@06 PO Last administered on 08/30/16 16 :33; Admin Dose 40 MG; Start 08/24/16 at 06:00 Ondansetron HCl (Zofran Inj) 4 mg Q6H PRN IV NAUSEA AND/OR VOMITING Last administered on 08/30/16 14:02; Admin Dose 4 MG; Start 08/23/16 at 19:00 Acetaminophen (Tylenol Tab) 650 mg Q6H PRN PO PAIN AND OR ELEVATED TEMP Last administered on 08/26/16 08:23; Admin Dose 650 MG; Start 08/23/16 at 19:00 Enoxaparin Sodium (Lovenox) 40 mg DAILY SC Last administered on 08/27/16 10:30 ; Admin Dose 40 MG; Start 08/24/16 at 09:00; Status Future Hold Hydromorphone HCl (Dilaudid) 1 mg Q4H PRN IV PAIN Last administered on 13:44; Admin Dose 1 MG; Start 08/23/16 at 19:00 Nystatin 2 ml 2 ml QID PO Last administered on 08/30/16 16:33; Admin Dose 2 ML ; Start 08/23/16 at 21:00 Dextrose/Sodium Chloride (D5-1/2ns) 1,000 ml @ 70 mls/hr [id number] IV Last administered on 08/29/16 22:54; Admin Dose 70 MLS/HR; Start 08/23/16 at 20:00 Docusate Sodium 100 mg 100 mg BID PO Last administered on 08/29/16 21:38; Admin Dose 100 MG; Start 08/23/16 at 21:00 Linezolid (Zyvox 600mg/D5W (Pmx)) 300 ml @ 300 mls/hr Q12 IVPB Last administered on 08/30/16 08:54; Admin Dose 300 MLS/HR; Start 08/24/16 at 09:00 Diphenhydramine HCl (Benadryl) 25 mg Q6H PRN IV ITCHING Last administered on 02:19; Admin Dose 25 MG; Start 08/24/16 at 02:30 Non-Formulary Medication 1 ea DAILY PO Last administered on 08/30/16 16:34; Admin Dose 1 EA; Start 08/26/16 at 09:00 Non-Formulary Medication 1 ea DAILY PO Last administered on 08/30/16 16:34; Admin Dose 1 EA; Start 08/26/16 at 09:00 DELON TATE M.D. Aug 30, 2016 17:51
[2016-08-30] MEDS: DEXTROSE 5%-0.45% NACL 1,000 ML IV SCH (18:10)
--- NOTE | 2016-08-30 19:11 | RADRPT ---
PROCEDURE: Left upper extremity venous ultrasound CLINICAL INDICATION: Left arm pain and swelling. Deep venous thrombosis. TECHNIQUE: Valdivia scale, color doppler, spectral doppler ultrasound imaging of the venous system of the left upper extremity. Augmentation maneuvers were utilized. COMPARISON: No prior studies are available for comparison. FINDINGS: LEFT: Internal jugular vein: Patent. Subclavian vein: Patent. Axillary vein: Patent. Brachial vein: Patent. Basilic vein: Patent. Cephalic vein: Occlusive thrombus is present. Radial vein: Patent. Ulnar vein: Patent. IMPRESSION: No evidence of a deep vein thrombosis involving the left upper extremity. Occlusive superficial venous thrombosis within the left cephalic vein. RPTAT: AADD .Aniket Powell MD, MD Date Time Electronically viewed and signed by .Aniket Powell MD, MD on 08/30/2016 19:11 .B/
[2016-08-31] MEDS: HYDROmorphONE 1 MG/ML SYG IV PRN ×6 (00:09→21:15)
[2016-08-31] MEDS ORDERED: META800T PO (05:10)
[2016-08-31] MEDS ORDERED: LORA0.5T PO (05:10)
[2016-08-31] MEDS ORDERED: ESCI20TA38 PO (05:10)
[2016-08-31] MEDS ORDERED: ENAL10TA PO (05:10)
[2016-08-31] MEDS ORDERED: RANI150C11 PO (05:10)
[2016-08-31] MEDS ORDERED: HYDR-906 PO (05:10)
[2016-08-31] MEDS ORDERED: AMLO-320 PO (05:10)
[2016-08-31] MEDS ORDERED: ALBU90AE INHALATION (05:10)
[2016-08-31] MEDS ORDERED: ASPI-535 PO (05:10)
[2016-08-31 06:05] LABS: ADD SCAN DIFF NO
[2016-08-31 06:08] LABS: BASOPHILS % 0.7 % (0.0-2.0); EOSINOPHILS # 0.2 10^3/ul (0.0-0.5); EOSINOPHILS % 6.7 % (0.0-7.0); HEMATOCRIT 29.5 % (37.0-47.0); HEMOGLOBIN 9.2 g/dl (12.0-16.0); LYMPHOCYTES # 0.9 10^3/ul (0.8-2.9); LYMPHOCYTES % 35.1 % (15.0-51.0); MEAN CORPUSCULAR HGB CONC 31.2 g/dl (32.0-37.0); MEAN CORPUSCULAR VOLUME 89.7 fl (82.0-101.0); MEAN PLATELET VOLUME 11.2 fl (7.4-10.4); MONOCYTE # 0.3 10^3/ul (0.3-0.9); MONOCYTES % 10.4 % (0.0-11.0); NEUTROPHIL # 1.3 10^3/ul (1.6-7.5); NEUTROPHILS % 47.1 % (39.0-77.0); PLATELET COUNT 156 10^3/UL (140-415); RED BLOOD COUNT 3.29 10^6/ul (4.20-5.40); RED CELL DISTRIBUTION WIDTH 15.3 % (11.5-14.5); WHITE BLOOD COUNT 2.7 10^3/ul (4.8-10.8)
[2016-08-31 06:21] LABS: POTASSIUM 3.6 mmol/L (3.5-5.1)
[2016-08-31 06:24] LABS: CREATININE 0.84 mg/dl (0.44-1.00)
[2016-08-31 06:25] LABS: CALCIUM 8.4 mg/dl (8.4-10.2)
[2016-08-31 07:23] VITALS: BP 119/65; RESP 18
[2016-08-31] MEDS: NYSTATIN SUSP 5 ML CUP PO SCH ×4 (08:59→21:11)
[2016-08-31] MEDS: LINEZOLID 600 MG/D5W (PMX) 300 ML IVPB SCH (08:59)
[2016-08-31] MEDS: TRIMETHOPRIM/SULFAMETHOX (DS) TAB PO SCH (09:00)
[2016-08-31] MEDS: ATENOLOL 100 MG TAB PO SCH (09:00)
[2016-08-31] MEDS: GABAPENTIN 400 MG CAP PO SCH ×3 (09:01→21:11)
[2016-08-31] MEDS: VALSARTAN 160 MG TAB PO SCH (09:01)
[2016-08-31] MEDS: ETRAVIRINE 100 MG TABLET PO SCH ×2 (09:01→21:10)
[2016-08-31] MEDS: DOCUSATE SODIUM 100 MG CAP PO SCH ×2 (09:02→21:10)
--- NOTE | 2016-08-31 09:04 | RADRPT ---
PROCEDURE: Intraoperative imaging for ERCP with fluoroscopy. CLINICAL INDICATION: Right upper quadrant pain. Intraoperative. TECHNIQUE: 4 images of the right upper quadrant of the abdomen were obtained in the operating room with an image intensifier. No radiologist was in attendance. 6.6 seconds of fluoroscopy time was used. COMPARISON: MRCP dated 08/27/2016. FINDINGS: Images demonstrate contrast in the common bile duct and placement of a common bile duct stent. Ther e is no filling defect. The pancreatic duct was not injected. IMPRESSION: 1. ERCP as described above. RPTAT: QQ .Javid Braun MD, MD Date Time Electronically viewed and signed by .Javid Braun MD, on 08/31/2016 09:04 .R/
[2016-08-31] MEDS: DEXTROSE 5%-0.45% NACL 1,000 ML IV SCH (09:05)
[2016-08-31] MEDS: CYCLOBENZAPRINE 10 MG TAB PO SCH ×2 (09:12→21:11)
--- NOTE | 2016-08-31 10:52 | CONS ---
Date/Time of Note Date/Time of Note DATE: 08/31/16 TIME: 10:49 Assessment/Plan Assessment/Plan Chief Complaint/Hosp Course assessment/impression - infection near the surgical site of R volar wrist, likely due to MRSA - HIV/AIDS, MN7=924, HE=2512 copies. 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 - past HCV exposure, viral load undetectable - HBVc Ab+ status, sAg and sAg negative - esophageal CA - h/o thrush per Pt - h/o endometriosis, s/p BEAR-BSO - s/p appendectomy, CCY - s/p tonsillectomy, adenoidectomy - adverse reaction to vancomycin at ER - allergy to PCN and rifampin recommendations - check HBV viral load - d/c linezolid (08/24/2016-) - continue Descovy and Intelence for HIV. If her GFR worsens, I will recommend renally dose tenofovir and emtricitabine separately - Descovy is indicated also because Pt tested HBVcAb positive - continue Bactrim DS once daily for secondary pneumocystis prophylaxis management d/w Pt Problems: Consultation Date/Type/Reason Admit Date/Time Aug 25, 2016 at 12:43 Initial Consult Date 08/24/16 Type of Consultation: ID Referring Provider: JOHN HOYOS 24 HR Interval Summary Constitutional: poor po Detailed Summary Eyes: no complaints ENT: no complaints Respiratory: no complaints Cardiovascular: no complaints Gastrointestinal: nausea, pain, vomiting Musculoskeletal: other (per Pt, pain of R wrist but Pt is able to rest her head on R wrist in bed while lying down) Skin: skin lesions (surgical scar of R volar wrist) Neurologic: no complaints Exam/Review of Systems Vital Signs Vitals Vital Signs Date Time Temp Pulse Resp B/P Pulse Ox O2 Delivery O2 Flow Rate FiO2 08/31/16 07:23 97.9 82 18 119/65 92 08/30/16 13:18 Nasal Cannula 2.0 Intake and Output 08/30/16 08/30/16 08/31/16 15:00 23:00 07:00 Intake Total 400 ml 1280 ml 400 ml Balance 400 ml 1280 ml 400 ml Exam Constitutional: alert, obese, oriented, well developed Psych: no complaints Head: atraumatic, normocephalic Eyes: nl conjunctiva, nl lids ENMT: nl external ears & nose, nl nasal mucosa & septum Neck: supple Respiratory: clear to auscultation, normal air movement Cardiovascular: nl pulses, regular rate and rhythm Gastrointestinal: other (Pt did not allow full exam), soft, No distended Musculoskeletal: No swelling Extremities: No edema Skin: rash or lesions (well healing surgical scar pf R wrist, sensitive but Pt has FROM and able do ADLs with her R hand) Results Result Diagram: 08/31/16 0530 08/31/16 0530 Results 24 hrs Laboratory Tests Test 08/31/16 05:30 White Blood Count 2.7 L Red Blood Count 3.29 L Hemoglobin 9.2 L Hematocrit 29.5 L Mean Corpuscular Volume 89.7 Mean Corpuscular Hemoglobin 28.0 L Mean Corpuscular Hemoglobin Concent 31.2 L Red Cell Distribution Width 15.3 H Platelet Count 156 # Mean Platelet Volume 11.2 H Neutrophils % 47.1 Lymphocytes % 35.1 Monocytes % 10.4 Eosinophils % 6.7 Basophils % 0.7 Nucleated Red Blood Cells % 0.0 Neutrophils # 1.3 L Lymphocytes # 0.9 Monocytes # 0.3 Eosinophils # 0.2 Basophils # 0.0 Nucleated Red Blood Cells # 0.0 Sodium Level 137 Potassium Level 3.6 Chloride Level 100 Carbon Dioxide Level 29 Anion Gap 12 Blood Urea Nitrogen 10 Creatinine 0.84 Glucose Level 146 Calcium Level 8.4 Medications Medications Current Medications Atenolol (Tenormin) 100 mg DAILY PO Last administered on 08/31/16 09:00; Admin Dose 100 MG; Start 08/24/16 at 09:00 Cyclobenzaprine HCl (Flexeril) 10 mg BID PO Last administered on 08/31/16 09:12 ; Admin Dose 10 MG; Start 08/23/16 at 21:00 Gabapentin (Neurontin) 800 mg TID PO Last administered on 08/31/16 09:01; Admin Dose 800 MG; Start 08/23/16 at 21:00 Oxycodone HCl (Roxicodone) 30 mg QID PRN PO PAIN Last administered on 21:52; Admin Dose 30 MG; Start 08/23/16 at 18:30 Valsartan (Diovan) 320 mg DAILY PO Last administered on 08/31/16 09:01; Admin Dose 320 MG; Start 08/24/16 at 09:00 Pantoprazole (Protonix Tab) 40 mg DAILY@06 PO Last administered on 08/30/16 16 :33; Admin Dose 40 MG; Start 08/24/16 at 06:00 Ondansetron HCl (Zofran Inj) 4 mg Q6H PRN IV NAUSEA AND/OR VOMITING Last administered on 08/30/16 14:02; Admin Dose 4 MG; Start 08/23/16 at 19:00 Acetaminophen (Tylenol Tab) 650 mg Q6H PRN PO PAIN AND OR ELEVATED TEMP Last administered on 08/26/16 08:23; Admin Dose 650 MG; Start 08/23/16 at 19:00 Enoxaparin Sodium (Lovenox) 40 mg DAILY SC Last administered on 08/27/16 10:30 ; Admin Dose 40 MG; Start 08/24/16 at 09:00; Status Future Hold Hydromorphone HCl (Dilaudid) 1 mg Q4H PRN IV PAIN Last administered on 09:12; Admin Dose 1 MG; Start 08/23/16 at 19:00 Nystatin 2 ml 2 ml QID PO Last administered on 08/31/16 08:59; Admin Dose 2 ML ; Start 08/23/16 at 21:00 Dextrose/Sodium Chloride (D5-1/2ns) 1,000 ml @ 70 mls/hr [id number] IV Last administered on 08/31/16 09:05; Admin Dose 70 MLS/HR; Start 08/23/16 at 20:00 Docusate Sodium 100 mg 100 mg BID PO Last administered on 08/31/16 09:02; Admin Dose 100 MG; Start 08/23/16 at 21:00 Linezolid (Zyvox 600mg/D5W (Pmx)) 300 ml @ 300 mls/hr Q12 IVPB Last administered on 08/31/16 08:59; Admin Dose 300 MLS/HR; Start 08/24/16 at 09:00 Diphenhydramine HCl (Benadryl) 25 mg Q6H PRN IV ITCHING Last administered on 02:19; Admin Dose 25 MG; Start 08/24/16 at 02:30 Non-Formulary Medication 1 ea DAILY PO Last administered on 08/30/16 16:34; Admin Dose 1 EA; Start 08/26/16 at 09:00 Non-Formulary Medication 1 ea DAILY PO Last administered on 08/30/16 16:34; Admin Dose 1 EA; Start 08/26/16 at 09:00 Trimethoprim/ Sulfamethoxazole (Bactrim (Ds)) 1 tab DAILY PO Last administered on 08/31/16 09:00; Admin Dose 1 TAB; Start 08/31/16 at 09:00 DELON TATE M.D. August 31, 2016 10:52
[2016-08-31] MEDS: ONDANSETRON 4 MG INJ IV PRN (10:55)
--- NOTE | 2016-08-31 12:26 | CONS ---
Date/Time of Note Date/Time of Note DATE: 08/31/16 TIME: 12:24 Assessment/Plan Assessment/Plan Additional Assessment/Plan 1. Acute kidney injury secondary to prerenal azotemia.- cr improved with IVF hydration 2. 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 3. History of HIV and hepatitis C. 4. Hyperphosphatemia with a phosphorus 5.1. 5. History of multiple surgeries before. 6. History of complicated surgical site infection of the back due to methicillin-resistant Staphylococcus aureus. 7. History of multiple back surgeries. 8. History of human immunodeficiency virus AIDS with CD4 less than 50, and detectable viral load, according to patient. 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 will follow up s/p GI consult Consultation Date/Type/Reason Admit Date/Time Aug 25, 2016 at 12:43 Initial Consult Date 08/24/16 Type of Consultation: Nephrology Referring Provider: JOHN HOYOS 24 HR Interval Summary Free Text/Dictation Na and Cr improved on Zyvox, On IVF D51/2 NS Exam/Review of Systems Vital Signs Vitals Vital Signs Date Time Temp Pulse Resp B/P Pulse Ox O2 Delivery O2 Flow Rate FiO2 08/31/16 07:23 97.9 82 18 119/65 92 08/30/16 13:18 Nasal Cannula 2.0 Intake and Output 08/30/16 08/30/16 08/31/16 15:00 23:00 07:00 Intake Total 400 ml 1280 ml 400 ml Balance 400 ml 1280 ml 400 ml Exam GENERAL: Awake, alert. HEENT: Normal. Oropharynx clear. NECK: Supple, no JVD, no lymphadenopathy. LUNGS: Clear to auscultation. No crackles, no wheezes. HEART: S1, S2, with regular rhythm, no murmur. ABDOMEN: Soft, nontender, nondistended. Bowel sounds are present. EXTREMITIES: No clubbing, cyanosis, or edema. The patient has right wrist erythema, swelling, tender to palpation. NEUROLOGICAL: Nonfocal, intact. PSYCHIATRIC: Appropriate affect and mood. Results Result Diagram: 08/31/16 0530 08/31/16 0530 Results 24 hrs Laboratory Tests Test 08/31/16 05:30 White Blood Count 2.7 L Red Blood Count 3.29 L Hemoglobin 9.2 L Hematocrit 29.5 L Mean Corpuscular Volume 89.7 Mean Corpuscular Hemoglobin 28.0 L Mean Corpuscular Hemoglobin Concent 31.2 L Red Cell Distribution Width 15.3 H Platelet Count 156 # Mean Platelet Volume 11.2 H Neutrophils % 47.1 Lymphocytes % 35.1 Monocytes % 10.4 Eosinophils % 6.7 Basophils % 0.7 Nucleated Red Blood Cells % 0.0 Neutrophils # 1.3 L Lymphocytes # 0.9 Monocytes # 0.3 Eosinophils # 0.2 Basophils # 0.0 Nucleated Red Blood Cells # 0.0 Sodium Level 137 Potassium Level 3.6 Chloride Level 100 Carbon Dioxide Level 29 Anion Gap 12 Blood Urea Nitrogen 10 Creatinine 0.84 Glucose Level 146 Calcium Level 8.4 Medications Medications Current Medications Atenolol (Tenormin) 100 mg DAILY PO Last administered on 08/31/16 09:00; Admin Dose 100 MG; Start 08/24/16 at 09:00 Cyclobenzaprine HCl (Flexeril) 10 mg BID PO Last administered on 08/31/16 09:12 ; Admin Dose 10 MG; Start 08/23/16 at 21:00 Gabapentin (Neurontin) 800 mg TID PO Last administered on 08/31/16 09:01; Admin Dose 800 MG; Start 08/23/16 at 21:00 Oxycodone HCl (Roxicodone) 30 mg QID PRN PO PAIN Last administered on 21:52; Admin Dose 30 MG; Start 08/23/16 at 18:30 Valsartan (Diovan) 320 mg DAILY PO Last administered on 08/31/16 09:01; Admin Dose 320 MG; Start 08/24/16 at 09:00 Pantoprazole (Protonix Tab) 40 mg DAILY@06 PO Last administered on 08/30/16 16 :33; Admin Dose 40 MG; Start 08/24/16 at 06:00 Ondansetron HCl (Zofran Inj) 4 mg Q6H PRN IV NAUSEA AND/OR VOMITING Last administered on 08/31/16 10:55; Admin Dose 4 MG; Start 08/23/16 at 19:00 Acetaminophen (Tylenol Tab) 650 mg Q6H PRN PO PAIN AND OR ELEVATED TEMP Last administered on 08/26/16 08:23; Admin Dose 650 MG; Start 08/23/16 at 19:00 Enoxaparin Sodium (Lovenox) 40 mg DAILY SC Last administered on 08/27/16 10:30 ; Admin Dose 40 MG; Start 08/24/16 at 09:00; Status Future Hold Hydromorphone HCl (Dilaudid) 1 mg Q4H PRN IV PAIN Last administered on 09:12; Admin Dose 1 MG; Start 08/23/16 at 19:00 Nystatin 2 ml 2 ml QID PO Last administered on 08/31/16 08:59; Admin Dose 2 ML ; Start 08/23/16 at 21:00 Dextrose/Sodium Chloride (D5-1/2ns) 1,000 ml @ 70 mls/hr [id number] IV Last administered on 08/31/16 09:05; Admin Dose 70 MLS/HR; Start 08/23/16 at 20:00 Docusate Sodium (Colace) 100 mg BID PO Last administered on 08/31/16 09:02; Admin Dose 100 MG; Start 08/23/16 at 21:00 Diphenhydramine HCl (Benadryl) 25 mg Q6H PRN IV ITCHING Last administered on 02:19; Admin Dose 25 MG; Start 08/24/16 at 02:30 Non-Formulary Medication 1 ea DAILY PO Last administered on 08/30/16 16:34; Admin Dose 1 EA; Start 08/26/16 at 09:00 Non-Formulary Medication 1 ea DAILY PO Last administered on 08/30/16 16:34; Admin Dose 1 EA; Start 08/26/16 at 09:00 Trimethoprim/ Sulfamethoxazole (Bactrim (Ds)) 1 tab DAILY PO Last administered on 08/31/16 09:00; Admin Dose 1 TAB; Start 08/31/16 at 09:00 ELLIS EISENBERG MD August 31, 2016 12:26
[2016-08-31] MEDS: oxyCODONE 15 MG TAB PO PRN ×2 (18:03→23:39)
--- NOTE | 2016-08-31 18:19 | CONS ---
Date/Time of Note Date/Time of Note DATE: 08/31/16 TIME: 18:18 Assessment/Plan Assessment/Plan Additional Assessment/Plan IMPRESSION: 1. Human immunodeficiency virus. 2. History of hepatitis C. 3. History of esophageal cancer. 4. Elevated alkaline phosphatase. 5. Anemia. 6. Cellulitis of the left lower extremity. 7. Infection of the surgical site of the right arm. 8. Failed multiple back surgeries. 9. ALLERGIC TO PENICILLIN AND RIFAMPIN. 10. Right upper quadrant pain, rule out bile duct stone 11. Ampullary stenosis, sphincterotomy done and stent deployed Plan Continue antibiotic as per ID Monitor LFT PLAN: At this point, is to continue all the medication as per the ID Consultation Date/Type/Reason Admit Date/Time Aug 25, 2016 at 12:43 Initial Consult Date 08/24/16 Type of Consultation: Nephrology Referring Provider: JOHN HOYOS 24 HR Interval Summary Free Text/Dictation Patient complains of right upper quadrant pain. No fever no vomiting Exam/Review of Systems Vital Signs Vitals Vital Signs Date Time Temp Pulse Resp B/P Pulse Ox O2 Delivery O2 Flow Rate FiO2 08/31/16 07:23 97.9 82 18 119/65 92 08/30/16 13:18 Nasal Cannula 2.0 Intake and Output 08/30/16 08/30/16 08/31/16 14:59 22:59 06:59 Intake Total 400 ml 1280 ml 400 ml Balance 400 ml 1280 ml 400 ml Exam Constitutional: alert, oriented, well developed Psych: nl mood/affect, no complaints Head: atraumatic, normocephalic Eyes: EOMI, PERRL, nl conjunctiva, nl lids, nl sclera ENMT: nl external ears & nose, nl lips & teeth, nl nasal mucosa & septum Neck: non-tender, supple Respiratory: clear to auscultation, normal air movement Cardiovascular: nl pulses, regular rate and rhythm Gastrointestinal: nl liver, spleen, non-tender, soft Musculoskeletal: nl extremities to inspection, nl gait and stance Extremities: normal pulses Neurological: SPINE SURGEON II-XII intact, nl mental status, nl speech, nl strength Skin: nl turgor, No rash or lesions Lymph: nl lymph nodes Results Result Diagram: 08/31/16 0530 08/31/16 0530 Results 24 hrs Laboratory Tests Test 08/31/16 05:30 White Blood Count 2.7 L Red Blood Count 3.29 L Hemoglobin 9.2 L Hematocrit 29.5 L Mean Corpuscular Volume 89.7 Mean Corpuscular Hemoglobin 28.0 L Mean Corpuscular Hemoglobin Concent 31.2 L Red Cell Distribution Width 15.3 H Platelet Count 156 # Mean Platelet Volume 11.2 H Neutrophils % 47.1 Lymphocytes % 35.1 Monocytes % 10.4 Eosinophils % 6.7 Basophils % 0.7 Nucleated Red Blood Cells % 0.0 Neutrophils # 1.3 L Lymphocytes # 0.9 Monocytes # 0.3 Eosinophils # 0.2 Basophils # 0.0 Nucleated Red Blood Cells # 0.0 Sodium Level 137 Potassium Level 3.6 Chloride Level 100 Carbon Dioxide Level 29 Anion Gap 12 Blood Urea Nitrogen 10 Creatinine 0.84 Glucose Level 146 Calcium Level 8.4 Medications Medications Current Medications Atenolol (Tenormin) 100 mg DAILY PO Last administered on 08/31/16 09:00; Admin Dose 100 MG; Start 08/24/16 at 09:00 Cyclobenzaprine HCl (Flexeril) 10 mg BID PO Last administered on 08/31/16 09:12 ; Admin Dose 10 MG; Start 08/23/16 at 21:00 Gabapentin (Neurontin) 800 mg TID PO Last administered on 08/31/16 13:06; Admin Dose 800 MG; Start 08/23/16 at 21:00 Oxycodone HCl (Roxicodone) 30 mg QID PRN PO PAIN Last administered on 08/31/16 18:03; Admin Dose 30 MG; Start 08/23/16 at 18:30 Valsartan (Diovan) 320 mg DAILY PO Last administered on 08/31/16 09:01; Admin Dose 320 MG; Start 08/24/16 at 09:00 Pantoprazole (Protonix Tab) 40 mg DAILY@06 PO Last administered on 08/30/16 16 :33; Admin Dose 40 MG; Start 08/24/16 at 06:00 Ondansetron HCl (Zofran Inj) 4 mg Q6H PRN IV NAUSEA AND/OR VOMITING Last administered on 08/31/16 10:55; Admin Dose 4 MG; Start 08/23/16 at 19:00 Acetaminophen (Tylenol Tab) 650 mg Q6H PRN PO PAIN AND OR ELEVATED TEMP Last administered on 08/26/16 08:23; Admin Dose 650 MG; Start 08/23/16 at 19:00 Enoxaparin Sodium (Lovenox) 40 mg DAILY SC Last administered on 08/27/16 10:30 ; Admin Dose 40 MG; Start 08/24/16 at 09:00; Status Future Hold Hydromorphone HCl (Dilaudid) 1 mg Q4H PRN IV PAIN Last administered on 16:40; Admin Dose 1 MG; Start 08/23/16 at 19:00 Nystatin 2 ml 2 ml QID PO Last administered on 08/31/16 16:56; Admin Dose 2 ML ; Start 08/23/16 at 21:00 Dextrose/Sodium Chloride (D5-1/2ns) 1,000 ml @ 70 mls/hr [id number] IV Last administered on 08/31/16 09:05; Admin Dose 70 MLS/HR; Start 08/23/16 at 20:00 Docusate Sodium (Colace) 100 mg BID PO Last administered on 08/31/16 09:02; Admin Dose 100 MG; Start 08/23/16 at 21:00 Diphenhydramine HCl (Benadryl) 25 mg Q6H PRN IV ITCHING Last administered on 02:19; Admin Dose 25 MG; Start 08/24/16 at 02:30 Non-Formulary Medication 1 ea DAILY PO Last administered on 08/30/16 16:34; Admin Dose 1 EA; Start 08/26/16 at 09:00 Non-Formulary Medication 1 ea DAILY PO Last administered on 08/30/16 16:34; Admin Dose 1 EA; Start 08/26/16 at 09:00 Trimethoprim/ Sulfamethoxazole (Bactrim (Ds)) 1 tab DAILY PO Last administered on 08/31/16 09:00; Admin Dose 1 TAB; Start 08/31/16 at 09:00 RAI LR MD August 31, 2016 18:19
--- NOTE | 2016-08-31 19:26 | PN ---
Date/Time of Note Date/Time of Note DATE: 08/31/16 TIME: 19:24 Assessment/Plan VTE Prophylaxis VTE Prophylaxis Intervention: SCD's Lines/Catheters IV [facility]ter Type (from [email or web address] Urinary Cath still in place: No Assessment/Plan Chief Complaint/Hosp Course Assessment and plan: -Infection of the surgical site of right wrist. Dr. Flora calixto is following infection disease consultation. - S/p recent surgical intervention of an MRSA abscess to the volar aspect of the right wrist at [place] on 04 August by Moe Russo. -HIV, AIDS. Pending CD4 and viral load count. Continue antiretroviral therapy. -Hepatitis C -Status post back surgery with anterior approach with subsequent MRSA infection -History of esophageal CA -Acute kidney injury. Dr. Cruz is following in nephrology consultation. -Hypertension, continue Diovan and atenolol. -Elevated alkaline phosphate, Dr. Costello is following in gastroenterology consultation,s/p ERCP: Ampullary stenosis, sphincterotomy done and stent deployed. Further recommendations based on clinical course. Plan of care discussed with Dr. Haddad. Problems: Subjective 24 Hr Interval Summary Free Text/Dictation Patient's right wrist erythema is resolving however patient still complains of the right wrist pain, denies fevers, complains of nausea and poor appetite. Exam/Review of Systems Vital Signs Vitals Vital Signs Date Time Temp Pulse Resp B/P Pulse Ox O2 Delivery O2 Flow Rate FiO2 08/31/16 07:23 97.9 82 18 119/65 92 08/30/16 13:18 Nasal Cannula 2.0 Intake and Output 08/30/16 08/30/16 08/31/16 15:00 23:00 07:00 Intake Total 400 ml 1280 ml 400 ml Balance 400 ml 1280 ml 400 ml Exam Constitutional: alert, oriented Psych: nl mood/affect, no complaints Head: atraumatic, normocephalic Eyes: nl conjunctiva ENMT: nl external ears & nose Respiratory: clear to auscultation, normal air movement Cardiovascular: nl pulses, regular rate and rhythm Gastrointestinal: non-tender, soft Musculoskeletal: nl extremities to inspection Extremities: normal pulses Neurological: SEPARATING MACHINE OPERATOR II-XII intact Skin: other (right wrist surgical incision intact with sutures, right wrist wound ) Results Result Diagram: 08/31/1630 08/31/16 0530 Results 24 hrs Laboratory Tests Test 08/31/16 05:30 White Blood Count 2.7 L Red Blood Count 3.29 L Hemoglobin 9.2 L Hematocrit 29.5 L Mean Corpuscular Volume 89.7 Mean Corpuscular Hemoglobin 28.0 L Mean Corpuscular Hemoglobin Concent 31.2 L Red Cell Distribution Width 15.3 H Platelet Count 156 # Mean Platelet Volume 11.2 H Neutrophils % 47.1 Lymphocytes % 35.1 Monocytes % 10.4 Eosinophils % 6.7 Basophils % 0.7 Nucleated Red Blood Cells % 0.0 Neutrophils # 1.3 L Lymphocytes # 0.9 Monocytes # 0.3 Eosinophils # 0.2 Basophils # 0.0 Nucleated Red Blood Cells # 0.0 Sodium Level 137 Potassium Level 3.6 Chloride Level 100 Carbon Dioxide Level 29 Anion Gap 12 Blood Urea Nitrogen 10 Creatinine 0.84 Glucose Level 146 Calcium Level 8.4 Medications Medications Current Medications Atenolol (Tenormin) 100 mg DAILY PO Last administered on 08/31/16 09:00; Admin Dose 100 MG; Start 08/24/16 at 09:00 Cyclobenzaprine HCl (Flexeril) 10 mg BID PO Last administered on 08/31/16 09:12 ; Admin Dose 10 MG; Start 08/23/16 at 21:00 Gabapentin (Neurontin) 800 mg TID PO Last administered on 08/31/16 13:06; Admin Dose 800 MG; Start 08/23/16 at 21:00 Oxycodone HCl (Roxicodone) 30 mg QID PRN PO PAIN Last administered on 08/31/16 18:03; Admin Dose 30 MG; Start 08/23/16 at 18:30 Valsartan (Diovan) 320 mg DAILY PO Last administered on 08/31/16 09:01; Admin Dose 320 MG; Start 08/24/16 at 09:00 Pantoprazole (Protonix Tab) 40 mg DAILY@06 PO Last administered on 08/30/16 16 :33; Admin Dose 40 MG; Start 08/24/16 at 06:00 Ondansetron HCl (Zofran Inj) 4 mg Q6H PRN IV NAUSEA AND/OR VOMITING Last administered on 08/31/16 10:55; Admin Dose 4 MG; Start 08/23/16 at 19:00 Acetaminophen (Tylenol Tab) 650 mg Q6H PRN PO PAIN AND OR ELEVATED TEMP Last administered on 08/26/16 08:23; Admin Dose 650 MG; Start 08/23/16 at 19:00 Enoxaparin Sodium (Lovenox) 40 mg DAILY SC Last administered on 08/27/16 10:30 ; Admin Dose 40 MG; Start 08/24/16 at 09:00; Status Future Hold Hydromorphone HCl (Dilaudid) 1 mg Q4H PRN IV PAIN Last administered on 16:40; Admin Dose 1 MG; Start 08/23/16 at 19:00 Nystatin 2 ml 2 ml QID PO Last administered on 08/31/16 16:56; Admin Dose 2 ML ; Start 08/23/16 at 21:00 Dextrose/Sodium Chloride (D5-1/2ns) 1,000 ml @ 70 mls/hr [id number] IV Last administered on 08/31/16 09:05; Admin Dose 70 MLS/HR; Start 08/23/16 at 20:00 Docusate Sodium (Colace) 100 mg BID PO Last administered on 08/31/16 09:02; Admin Dose 100 MG; Start 08/23/16 at 21:00 Diphenhydramine HCl (Benadryl) 25 mg Q6H PRN IV ITCHING Last administered on 02:19; Admin Dose 25 MG; Start 08/24/16 at 02:30 Non-Formulary Medication 1 ea DAILY PO Last administered on 08/30/16 16:34; Admin Dose 1 EA; Start 08/26/16 at 09:00 Non-Formulary Medication 1 ea DAILY PO Last administered on 08/30/16 16:34; Admin Dose 1 EA; Start 08/26/16 at 09:00 Trimethoprim/ Sulfamethoxazole (Bactrim (Ds)) 1 tab DAILY PO Last administered on 08/31/16 09:00; Admin Dose 1 TAB; Start 08/31/16 at 09:00 KRISTEL LEVY August 31, 2016 19:26
[2016-08-31 21:23] VITALS: BP 123/80; RESP 16
[2016-09-01] MEDS: DEXTROSE 5%-0.45% NACL 1,000 ML IV SCH ×2 (01:29→13:12)
[2016-09-01] MEDS: PANTOPRAZOLE (EC) 40 MG TAB PO SCH (05:41)
[2016-09-01] MEDS: HYDROmorphONE 1 MG/ML SYG IV PRN ×4 (05:47→22:16)
[2016-09-01 07:57] VITALS: BP 111/79; RESP 85
[2016-09-01] MEDS: ATENOLOL 100 MG TAB PO SCH (09:07)
[2016-09-01] MEDS: DOCUSATE SODIUM 100 MG CAP PO SCH ×2 (09:07→21:23)
[2016-09-01] MEDS: NYSTATIN SUSP 5 ML CUP PO SCH ×4 (09:08→21:23)
[2016-09-01] MEDS: CYCLOBENZAPRINE 10 MG TAB PO SCH ×2 (09:08→21:23)
[2016-09-01] MEDS: GABAPENTIN 400 MG CAP PO SCH ×3 (09:08→21:24)
[2016-09-01] MEDS: VALSARTAN 160 MG TAB PO SCH (09:08)
[2016-09-01] MEDS: ETRAVIRINE 100 MG TABLET PO SCH ×2 (09:08→21:23)
[2016-09-01] MEDS: DESCOVY PO SCH (09:09)
[2016-09-01] MEDS: TRIMETHOPRIM/SULFAMETHOX (DS) TAB PO SCH (09:09)
[2016-09-01] MEDS: PREZCOBIX PO SCH (09:09)
[2016-09-01] MEDS: oxyCODONE 15 MG TAB PO PRN ×2 (09:19→18:06)
[2016-09-01 10:21] LABS: ADD SCAN DIFF NO
[2016-09-01 10:30] LABS: BASOPHILS % 0.6 % (0.0-2.0); EOSINOPHILS # 0.3 10^3/ul (0.0-0.5); EOSINOPHILS % 8.1 % (0.0-7.0); HEMATOCRIT 31.2 % (37.0-47.0); HEMOGLOBIN 9.7 g/dl (12.0-16.0); LYMPHOCYTES # 1.1 10^3/ul (0.8-2.9); LYMPHOCYTES % 34.2 % (15.0-51.0); MEAN CORPUSCULAR HEMOGLOBIN 27.7 pg (29.0-33.0); MEAN CORPUSCULAR HGB CONC 31.1 g/dl (32.0-37.0); MEAN CORPUSCULAR VOLUME 89.1 fl (82.0-101.0); MEAN PLATELET VOLUME 10.6 fl (7.4-10.4); MONOCYTE # 0.3 10^3/ul (0.3-0.9); MONOCYTES % 8.4 % (0.0-11.0); NEUTROPHIL # 1.5 10^3/ul (1.6-7.5); NEUTROPHILS % 48.4 % (39.0-77.0); PLATELET COUNT 167 10^3/UL (140-415); RED CELL DISTRIBUTION WIDTH 15.4 % (11.5-14.5); WHITE BLOOD COUNT 3.1 10^3/ul (4.8-10.8)
--- NOTE | 2016-09-01 10:39 | CONS ---
Date/Time of Note Date/Time of Note DATE: 09/01/16 TIME: 10:39 Assessment/Plan Assessment/Plan Additional Assessment/Plan Additional Assessment/Plan IMPRESSION: 1. Human immunodeficiency virus. 2. History of hepatitis C. 3. History of esophageal cancer. 4. Elevated alkaline phosphatase. 5. Anemia. 6. Cellulitis of the left lower extremity. 7. Infection of the surgical site of the right arm. 8. Failed multiple back surgeries. 9. ALLERGIC TO PENICILLIN AND RIFAMPIN. 10. Right upper quadrant pain, rule out bile duct stone 11. Ampullary stenosis, sphincterotomy done and stent deployed Plan Continue antibiotic as per ID Monitor LFT Consultation Date/Type/Reason Admit Date/Time Aug 25, 2016 at 12:43 Initial Consult Date 08/24/16 Type of Consultation: Nephrology Referring Provider: JOHN HOYOS 24 HR Interval Summary Free Text/Dictation Pain is much better Constitutional: no complaints Exam/Review of Systems Vital Signs Vitals Vital Signs Date Time Temp Pulse Resp B/P Pulse Ox O2 Delivery O2 Flow Rate FiO2 09/01/16 07:57 98.1 79 85 111/79 92 08/30/16 13:18 Nasal Cannula 2.0 Intake and Output 08/31/16 08/31/16 09/01/16 15:00 23:00 07:00 Intake Total 1300 ml 1040 ml 1870 ml Balance 1300 ml 1040 ml 1870 ml Exam Constitutional: alert, oriented, well developed Psych: nl mood/affect, no complaints Head: atraumatic, normocephalic Eyes: EOMI, PERRL, nl conjunctiva, nl lids, nl sclera ENMT: nl external ears & nose, nl lips & teeth, nl nasal mucosa & septum Neck: non-tender, supple Respiratory: clear to auscultation, normal air movement Cardiovascular: nl pulses, regular rate and rhythm Gastrointestinal: nl liver, spleen, non-tender, soft Musculoskeletal: nl extremities to inspection, nl gait and stance Extremities: normal pulses Neurological: LAWN SERVICE MANAGER II-XII intact, nl mental status, nl speech, nl strength Skin: nl turgor, No rash or lesions Lymph: nl lymph nodes Results Result Diagram: 08/31/1630 08/31/16 0530 Medications Medications Current Medications Atenolol (Tenormin) 100 mg DAILY PO Last administered on 09/01/16 09:07; Admin Dose 100 MG; Start 08/24/16 at 09:00 Cyclobenzaprine HCl (Flexeril) 10 mg BID PO Last administered on 09/01/16 09:08 ; Admin Dose 10 MG; Start 08/23/16 at 21:00 Gabapentin (Neurontin) 800 mg TID PO Last administered on 09/01/16 09:08; Admin Dose 800 MG; Start 08/23/16 at 21:00 Oxycodone HCl (Roxicodone) 30 mg QID PRN PO PAIN Last administered on 09/01/16 09:19; Admin Dose 30 MG; Start 08/23/16 at 18:30 Valsartan (Diovan) 320 mg DAILY PO Last administered on 09/01/16 09:08; Admin Dose 320 MG; Start 08/24/16 at 09:00 Pantoprazole (Protonix Tab) 40 mg DAILY@06 PO Last administered on 09/01/16 05: 41; Admin Dose 40 MG; Start 08/24/16 at 06:00 Ondansetron HCl (Zofran Inj) 4 mg Q6H PRN IV NAUSEA AND/OR VOMITING Last administered on 08/31/16 10:55; Admin Dose 4 MG; Start 08/23/16 at 19:00 Acetaminophen (Tylenol Tab) 650 mg Q6H PRN PO PAIN AND OR ELEVATED TEMP Last administered on 08/26/16 08:23; Admin Dose 650 MG; Start 08/23/16 at 19:00 Enoxaparin Sodium (Lovenox) 40 mg DAILY SC Last administered on 08/27/16 10:30 ; Admin Dose 40 MG; Start 08/24/16 at 09:00; Status Future Hold Hydromorphone HCl (Dilaudid) 1 mg Q4H PRN IV PAIN Last administered on 05:47; Admin Dose 1 MG; Start 08/23/16 at 19:00 Nystatin 2 ml 2 ml QID PO Last administered on 09/01/16 09:08; Admin Dose 2 ML ; Start 08/23/16 at 21:00 Dextrose/Sodium Chloride (D5-1/2ns) 1,000 ml @ 70 mls/hr [id number] IV Last administered on 5/2/17at 01:29; Admin Dose 70 MLS/HR; Start 08/23/16 at 20:00 Docusate Sodium (Colace) 100 mg BID PO Last administered on 09/01/16 09:07; Admin Dose 100 MG; Start 08/23/16 at 21:00 Diphenhydramine HCl (Benadryl) 25 mg Q6H PRN IV ITCHING Last administered on 02:19; Admin Dose 25 MG; Start 08/24/16 at 02:30 Non-Formulary Medication 1 ea DAILY PO Last administered on 09/01/16 09:09; Admin Dose 1 EA; Start 08/26/16 at 09:00 Non-Formulary Medication 1 ea DAILY PO Last administered on 09/01/16 09:09; Admin Dose 1 EA; Start 08/26/16 at 09:00 Trimethoprim/ Sulfamethoxazole (Bactrim (Ds)) 1 tab DAILY PO Last administered on 09/01/16 09:09; Admin Dose 1 TAB; Start 08/31/16 at 09:00 RAI LR MD September 01, 2016 10:39
[2016-09-01 10:50] LABS: ALBUMIN 3.4 g/dl (3.3-4.9); ALBUMIN/GLOBULIN RATIO 0.85; BILIRUBIN,INDIRECT 0.1 mg/dl (0-1.1); BILIRUBIN,TOTAL 0.1 mg/dl (0.2-1.3); CALCIUM 8.7 mg/dl (8.4-10.2); CREATININE 0.91 mg/dl (0.44-1.00); TOTAL PROTEIN 7.4 g/dl (6.1-8.1)
--- NOTE | 2016-09-01 13:55 | PN ---
Date/Time of Note Date/Time of Note DATE: 09/01/16 TIME: 13:52 Assessment/Plan VTE Prophylaxis VTE Prophylaxis Intervention: SCD's Lines/Catheters IV Catheter Type (from Nrs): Peripheral IV Central line still needed: Yes Urinary Cath still in place: No Assessment/Plan Chief Complaint/Hosp Course Assessment and plan: -Infection of the surgical site of right wrist. Dr. Flora calixto is following infection disease consultation. - S/p recent surgical intervention of an MRSA abscess to the volar aspect of the right wrist at [place] on 04 August by Moe Russo. -HIV, AIDS. Pending CD4 and viral load count. Continue antiretroviral therapy. -Hepatitis C -Status post back surgery with anterior approach with subsequent MRSA infection -History of esophageal CA -Acute kidney injury. Dr. Cruz is following in nephrology consultation. -Hypertension, continue Diovan and atenolol. -Elevated alkaline phosphate, Dr. Costello is following in gastroenterology consultation,s/p ERCP, Ampullary stenosis, sphincterotomy done and stent deployed. Case management for DC planning Further recommendations based on clinical course. Plan of care discussed with Dr. Haddad. Problems: Subjective 24 Hr Interval Summary Free Text/Dictation Remains afebrile, pain is well controlled. Exam/Review of Systems Vital Signs Vitals Vital Signs Date Time Temp Pulse Resp B/P Pulse Ox O2 Delivery O2 Flow Rate FiO2 09/01/16 07:57 98.1 79 85 111/79 92 08/30/16 13:18 Nasal Cannula 2.0 Intake and Output 08/31/16 08/31/16 09/01/16 15:00 23:00 07:00 Intake Total 1300 ml 1040 ml 1870 ml Balance 1300 ml 1040 ml 1870 ml Exam Constitutional: alert, oriented Psych: nl mood/affect, no complaints Head: atraumatic, normocephalic Eyes: nl conjunctiva ENMT: nl external ears & nose Respiratory: clear to auscultation, normal air movement Cardiovascular: nl pulses, regular rate and rhythm Gastrointestinal: non-tender, soft Musculoskeletal: nl extremities to inspection Extremities: normal pulses Neurological: MAGNETIC GRINDER OPERATOR II-XII intact Skin: other (right wrist surgical incision intact with sutures, right wrist wound ) Results Result Diagram: 09/01/1693409/01/16 09 Results 24 hrs Laboratory Tests Test 09/01/16 09:35 White Blood Count 3.1 L Red Blood Count 3.50 L Hemoglobin 9.7 L Hematocrit 31.2 L Mean Corpuscular Volume 89.1 Mean Corpuscular Hemoglobin 27.7 L Mean Corpuscular Hemoglobin Concent 31.1 L Red Cell Distribution Width 15.4 H Platelet Count 167 Mean Platelet Volume 10.6 H Neutrophils % 48.4 Lymphocytes % 34.2 Monocytes % 8.4 Eosinophils % 8.1 H Basophils % 0.6 Nucleated Red Blood Cells % 0.0 Neutrophils # 1.5 L Lymphocytes # 1.1 Monocytes # 0.3 Eosinophils # 0.3 Basophils # 0.0 Nucleated Red Blood Cells # 0.0 Sodium Level 136 Potassium Level 4.0 Chloride Level 102 Carbon Dioxide Level 28 Anion Gap 10 Blood Urea Nitrogen 9 Creatinine 0.91 Glucose Level 110 Calcium Level 8.7 Total Bilirubin 0.1 L Direct Bilirubin 0.00 Indirect Bilirubin 0.1 Aspartate Amino Transf (AST/SGOT) 31 Alanine Aminotransferase (ALT/SGPT) 40 Alkaline Phosphatase 285 H Total Protein 7.4 Albumin 3.4 Globulin 4.00 H Albumin/Globulin Ratio 0.85 Medications Medications Current Medications Atenolol (Tenormin) 100 mg DAILY PO Last administered on 09/01/16 09:07; Admin Dose 100 MG; Start 08/24/16 at 09:00 Cyclobenzaprine HCl (Flexeril) 10 mg BID PO Last administered on 09/01/16 09:08 ; Admin Dose 10 MG; Start 08/23/16 at 21:00 Gabapentin (Neurontin) 800 mg TID PO Last administered on 09/01/16 13:50; Admin Dose 800 MG; Start 08/23/16 at 21:00 Oxycodone HCl (Roxicodone) 30 mg QID PRN PO PAIN Last administered on 09/01/16 09:19; Admin Dose 30 MG; Start 08/23/16 at 18:30 Valsartan (Diovan) 320 mg DAILY PO Last administered on 09/01/16 09:08; Admin Dose 320 MG; Start 08/24/16 at 09:00 Pantoprazole (Protonix Tab) 40 mg DAILY@06 PO Last administered on 09/01/16 05: 41; Admin Dose 40 MG; Start 08/24/16 at 06:00 Ondansetron HCl (Zofran Inj) 4 mg Q6H PRN IV NAUSEA AND/OR VOMITING Last administered on 08/31/16 10:55; Admin Dose 4 MG; Start 08/23/16 at 19:00 Acetaminophen (Tylenol Tab) 650 mg Q6H PRN PO PAIN AND OR ELEVATED TEMP Last administered on 08/26/16 08:23; Admin Dose 650 MG; Start 08/23/16 at 19:00 Enoxaparin Sodium (Lovenox) 40 mg DAILY SC Last administered on 08/27/16 10:30 ; Admin Dose 40 MG; Start 08/24/16 at 09:00; Status Future Hold Hydromorphone HCl (Dilaudid) 1 mg Q4H PRN IV PAIN Last administered on 11:44; Admin Dose 1 MG; Start 08/23/16 at 19:00 Nystatin 2 ml 2 ml QID PO Last administered on 09/01/16 13:50; Admin Dose 2 ML ; Start 08/23/16 at 21:00 Dextrose/Sodium Chloride (D5-1/2ns) 1,000 ml @ 70 mls/hr [id number] IV Last administered on 09/01/16 01:29; Admin Dose 70 MLS/HR; Start 08/23/16 at 20:00 Docusate Sodium (Colace) 100 mg BID PO Last administered on 09/01/16 09:07; Admin Dose 100 MG; Start 08/23/16 at 21:00 Diphenhydramine HCl (Benadryl) 25 mg Q6H PRN IV ITCHING Last administered on 02:19; Admin Dose 25 MG; Start 08/24/16 at 02:30 Non-Formulary Medication 1 ea DAILY PO Last administered on 09/01/16 09:09; Admin Dose 1 EA; Start 08/26/16 at 09:00 Non-Formulary Medication 1 ea DAILY PO Last administered on 09/01/16 09:09; Admin Dose 1 EA; Start 08/26/16 at 09:00 Trimethoprim/ Sulfamethoxazole (Bactrim (Ds)) 1 tab DAILY PO Last administered on 09/01/16 09:09; Admin Dose 1 TAB; Start 08/31/16 at 09:00 KRISTEL LEVY September 01, 2016 13:55
[2016-09-01] MEDS: ONDANSETRON 4 MG INJ IV PRN (18:03)
--- NOTE | 2016-09-01 18:18 | DS ---
DATE OF ADMISSION: 08/25/2016 DATE OF DISCHARGE: 09/01/2016 FINAL DIAGNOSES: 1. Infection of the surgical site of right wrist status post treatment. 2. Status post recent surgical intervention of a methicillin resistant Staphylococcus aureus absces s of the volar aspect of the right wrist at [place] on 08/04/[address] Nash. 3. Human immunodeficiency virus, acquired immunodeficiency syndrome. 4. Status post back surgery with anterior approach with subsequent methicillin resistant Staphyloco ccus aureus infection by history. 5. History of esophageal cancer. 6. Acute kidney injury, resolved. 7. Hypertension. 8. 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 9. Hepatitis B virus antibody positive status. 10. History with endometriosis status post total abdominal hysterectomy and bilateral salpingo-ooph orectomy by history. 11. History of hepatitis C. BRIEF HISTORY: The patient is a 55-year-old female with history of HIV and AIDS with recent surgica l intervention for an MRSA abscess of the volar aspect of the right wrist at [facility] 08/[address] Nash. The patient presented with 2 days of erythema and tenderness at the right wrist. The patient was admitted for further evaluation and management for cellulitis of the right upper arm. HOSPITAL COURSE: The patient was evaluated by Dr. Renteria in infectious disease consultation. Mos t likely due to MRSA. The patient received Zyvox. The patient was continued on her antiretroviral medication for AIDS. The patient's CD4 count was 142 and viral load 3464. The patient also had a h istory of hepatitis C exposure; however, viral load is undetectable. The patient's hepatitis B anti body positive status. The patient was continued on Bactrim for secondary pneumocystis prophylaxis a nd was continued on Descovy for hepatitis B positive status. The patient was also evaluated by Dr. Costello in gastroenterology consultation for elevated alkaline phosphate. The patient underwent ERCP with notion of ampullary stenosis. Sphincterectomy was done and stent was deployed. The patient w as also given Dilaudid and Roxicodone p.r.n. for pain. The patient was followed by Dr. Cruz in nep hrology consultation for acute kidney injury secondary to prerenal azotemia, which was improved on I V fluids. The patient's ortho surgeon, Dr. Nash, was contacted; however, he does not have priv ileges at [facility] and the patient was recommended to follow up with orthopedic surgeon as an outpatient. The patient's condition significantly improved and patient will be discha rged to long term facility for further management. CONDITION ON DISCHARGE: Hemodynamically stable. ACTIVITY: As patient tolerates. DIET: Regular diet. MEDICATIONS ON DISCHARGE: 1. Descovy. 2. Prezcobix. 3. Tylenol p.r.n. 4. Atenolol. 5. Flexeril. 6. Colace. 7. Lovenox. 8. Etravirine. 9. Neurontin. 10. Nystatin. 11. Roxicodone p.r.n. for pain. 12. Protonix. 13. Bactrim. 14. Diovan. Interdisciplinary plan of care was established for this patient. Plan of care was discussed with Dr Rogerio Dela Cruz. Dictated By: KRISTEL LEVY FLAVOR EXTRACTOR for GARY DELA CRUZ MD SR/RUBEN Conf#: [id number] DID#: [id number]
--- NOTE | 2016-09-01 18:52 | CONS ---
Date/Time of Note Date/Time of Note DATE: 09/01/16 TIME: 18:51 Assessment/Plan Assessment/Plan Additional Assessment/Plan 1. Acute kidney injury secondary to prerenal azotemia.- cr improved with IVF hydration 2. 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 3. History of HIV and hepatitis C. 4. Hyperphosphatemia with a phosphorus 5.1. 5. History of multiple surgeries before. 6. History of complicated surgical site infection of the back due to methicillin-resistant Staphylococcus aureus. 7. History of multiple back surgeries. 8. History of human immunodeficiency virus AIDS with CD4 less than 50, and detectable viral load, according to patient. 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 will follow up s/p GI consult Consultation Date/Type/Reason Admit Date/Time Aug 25, 2016 at 12:43 Initial Consult Date 08/24/16 Type of Consultation: Nephrology Referring Provider: JOHN HOYOS 24 HR Interval Summary Free Text/Dictation electrolyes stable, Cr normal, Na elza Exam/Review of Systems Vital Signs Vitals Vital Signs Date Time Temp Pulse Resp B/P Pulse Ox O2 Delivery O2 Flow Rate FiO2 09/01/16 07:57 98.1 79 85 111/79 92 08/30/16 13:18 Nasal Cannula 2.0 Intake and Output 08/31/16 08/31/16 09/01/16 15:00 23:00 07:00 Intake Total 1300 ml 1040 ml 1870 ml Balance 1300 ml 1040 ml 1870 ml Exam GENERAL: Awake, alert. HEENT: Normal. Oropharynx clear. NECK: Supple, no JVD, no lymphadenopathy. LUNGS: Clear to auscultation. No crackles, no wheezes. HEART: S1, S2, with regular rhythm, no murmur. ABDOMEN: Soft, nontender, nondistended. Bowel sounds are present. EXTREMITIES: No clubbing, cyanosis, or edema. The patient has right wrist erythema, swelling, tender to palpation. NEUROLOGICAL: Nonfocal, intact. PSYCHIATRIC: Appropriate affect and mood. Results Result Diagram: 09/01/16 0935 09/01/16 0935 Results 24 hrs Laboratory Tests Test 09/01/16 09:35 White Blood Count 3.1 L Red Blood Count 3.50 L Hemoglobin 9.7 L Hematocrit 31.2 L Mean Corpuscular Volume 89.1 Mean Corpuscular Hemoglobin 27.7 L Mean Corpuscular Hemoglobin Concent 31.1 L Red Cell Distribution Width 15.4 H Platelet Count 167 Mean Platelet Volume 10.6 H Neutrophils % 48.4 Lymphocytes % 34.2 Monocytes % 8.4 Eosinophils % 8.1 H Basophils % 0.6 Nucleated Red Blood Cells % 0.0 Neutrophils # 1.5 L Lymphocytes # 1.1 Monocytes # 0.3 Eosinophils # 0.3 Basophils # 0.0 Nucleated Red Blood Cells # 0.0 Sodium Level 136 Potassium Level 4.0 Chloride Level 102 Carbon Dioxide Level 28 Anion Gap 10 Blood Urea Nitrogen 9 Creatinine 0.91 Glucose Level 110 Calcium Level 8.7 Total Bilirubin 0.1 L Direct Bilirubin 0.00 Indirect Bilirubin 0.1 Aspartate Amino Transf (AST/SGOT) 31 Alanine Aminotransferase (ALT/SGPT) 40 Alkaline Phosphatase 285 H Total Protein 7.4 Albumin 3.4 Globulin 4.00 H Albumin/Globulin Ratio 0.85 Medications Medications Current Medications Atenolol (Tenormin) 100 mg DAILY PO Last administered on 09/01/16 09:07; Admin Dose 100 MG; Start 08/24/16 at 09:00 Cyclobenzaprine HCl (Flexeril) 10 mg BID PO Last administered on 09/01/16 09:08 ; Admin Dose 10 MG; Start 08/23/16 at 21:00 Gabapentin (Neurontin) 800 mg TID PO Last administered on 09/01/16 13:50; Admin Dose 800 MG; Start 08/23/16 at 21:00 Oxycodone HCl (Roxicodone) 30 mg QID PRN PO PAIN Last administered on 09/01/16 18:06; Admin Dose 30 MG; Start 08/23/16 at 18:30 Valsartan (Diovan) 320 mg DAILY PO Last administered on 09/01/16 09:08; Admin Dose 320 MG; Start 08/24/16 at 09:00 Pantoprazole (Protonix Tab) 40 mg DAILY@06 PO Last administered on 09/01/16 05: 41; Admin Dose 40 MG; Start 08/24/16 at 06:00 Ondansetron HCl (Zofran Inj) 4 mg Q6H PRN IV NAUSEA AND/OR VOMITING Last administered on 09/01/16 18:03; Admin Dose 4 MG; Start 08/23/16 at 19:00 Acetaminophen (Tylenol Tab) 650 mg Q6H PRN PO PAIN AND OR ELEVATED TEMP Last administered on 08/26/16 08:23; Admin Dose 650 MG; Start 08/23/16 at 19:00 Enoxaparin Sodium (Lovenox) 40 mg DAILY SC Last administered on 08/27/16 10:30 ; Admin Dose 40 MG; Start 08/24/16 at 09:00; Status Future Hold Hydromorphone HCl (Dilaudid) 1 mg Q4H PRN IV PAIN Last administered on 15:58; Admin Dose 1 MG; Start 08/23/16 at 19:00 Nystatin 2 ml 2 ml QID PO Last administered on 09/01/16 18:04; Admin Dose 2 ML ; Start 08/23/16 at 21:00 Dextrose/Sodium Chloride (D5-1/2ns) 1,000 ml @ 70 mls/hr [id number] IV Last administered on 09/01/16 01:29; Admin Dose 70 MLS/HR; Start 08/23/16 at 20:00 Docusate Sodium (Colace) 100 mg BID PO Last administered on 09/01/16 09:07; Admin Dose 100 MG; Start 08/23/16 at 21:00 Diphenhydramine HCl (Benadryl) 25 mg Q6H PRN IV ITCHING Last administered on 02:19; Admin Dose 25 MG; Start 08/24/16 at 02:30 Non-Formulary Medication 1 ea DAILY PO Last administered on 09/01/16 09:09; Admin Dose 1 EA; Start 08/26/16 at 09:00 Non-Formulary Medication 1 ea DAILY PO Last administered on 09/01/16 09:09; Admin Dose 1 EA; Start 08/26/16 at 09:00 Trimethoprim/ Sulfamethoxazole (Bactrim (Ds)) 1 tab DAILY PO Last administered on 09/01/16 09:09; Admin Dose 1 TAB; Start 08/31/16 at 09:00 ELLIS EISENBERG MD September 01, 2016 18:52
[2016-09-01 19:36] VITALS: BP 138/77; RESP 18
[2016-09-02] MEDS: oxyCODONE 15 MG TAB PO PRN ×2 (01:19→13:14)
[2016-09-02] MEDS: DEXTROSE 5%-0.45% NACL 1,000 ML IV SCH ×2 (03:00→17:48)
[2016-09-02] MEDS: HYDROmorphONE 1 MG/ML SYG IV PRN ×2 (04:12→08:39)
[2016-09-02] MEDS: PANTOPRAZOLE (EC) 40 MG TAB PO SCH (06:31)
[2016-09-02 07:36] VITALS: BP 111/76; RESP 18
[2016-09-02] MEDS: VALSARTAN 160 MG TAB PO SCH (08:35)
[2016-09-02] MEDS: CYCLOBENZAPRINE 10 MG TAB PO SCH (08:35)
[2016-09-02] MEDS: TRIMETHOPRIM/SULFAMETHOX (DS) TAB PO SCH (08:36)
[2016-09-02] MEDS: ETRAVIRINE 100 MG TABLET PO SCH (08:36)
[2016-09-02] MEDS: ATENOLOL 100 MG TAB PO SCH (08:36)
[2016-09-02] MEDS: GABAPENTIN 400 MG CAP PO SCH ×2 (08:36→13:13)
[2016-09-02] MEDS: DOCUSATE SODIUM 100 MG CAP PO SCH (08:37)
[2016-09-02] MEDS: NYSTATIN SUSP 5 ML CUP PO SCH ×3 (08:37→17:00)
[2016-09-02] MEDS: DESCOVY PO SCH (10:21)
[2016-09-02] MEDS: PREZCOBIX PO SCH (10:22)
[2016-09-02] MEDS: ONDANSETRON 4 MG INJ IV PRN (10:22)
--- NOTE | 2016-09-02 14:35 | PN ---
Date/Time of Note Date/Time of Note DATE: 09/02/16 TIME: 14:34 Assessment/Plan VTE Prophylaxis VTE Prophylaxis Intervention: SCD's Lines/Catheters IV C[facility]ter Type (from [facility]): Peripheral IV Urinary Cath still in place: No Assessment/Plan Chief Complaint/Hosp Course Assessment and plan: -Infection of the surgical site of right wrist. Dr. Flora calixto is following infection disease consultation. - S/p recent surgical intervention of an MRSA abscess to the volar aspect of the right wrist at [facility] on 04 August by Moe Russo. -HIV, AIDS. Pending CD4 and viral load count. Continue antiretroviral therapy. -Hepatitis C -Status post back surgery with anterior approach with subsequent MRSA infection -History of esophageal CA -Acute kidney injury. Dr. Cruz is following in nephrology consultation. -Hypertension, continue Diovan and atenolol. -Elevated alkaline phosphate, Dr. Costello is following in gastroenterology consultation,s/p ERCP: Ampullary stenosis, sphincterotomy done and stent deployed. Further recommendations based on clinical course. Plan of care discussed with Dr. Haddad. Problems: Subjective 24 Hr Interval Summary Free Text/Dictation No acute events, pt looks comfortable. pt refused d/c to [facility], will go home with home health services. Exam/Review of Systems Vital Signs Vitals Vital Signs Date Time Temp Pulse Resp B/P Pulse Ox O2 Delivery O2 Flow Rate FiO2 09/02/16 07:36 98.5 86 18 111/76 97 08/30/16 13:18 Nasal Cannula 2.0 Intake and Output 09/01/16 09/01/16 09/02/16 15:00 23:00 07:00 Intake Total 1850 ml 1240 ml Balance 1850 ml 1240 ml Exam Constitutional: alert, oriented Psych: nl mood/affect, no complaints Head: atraumatic, normocephalic Eyes: nl conjunctiva ENMT: nl external ears & nose Respiratory: clear to auscultation, normal air movement Cardiovascular: nl pulses, regular rate and rhythm Gastrointestinal: non-tender, soft Musculoskeletal: nl extremities to inspection Extremities: normal pulses 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 Skin: other (right wrist surgical incision intact with sutures, right wrist wound ) Results Result Diagram: 09/01/16 0935 09/01/16 0935 Medications Medications Current Medications Atenolol (Tenormin) 100 mg DAILY PO Last administered on 09/02/16 08:36; Admin Dose 100 MG; Start 08/24/16 at 09:00 Cyclobenzaprine HCl (Flexeril) 10 mg BID PO Last administered on 09/02/16 08:35 ; Admin Dose 10 MG; Start 08/23/16 at 21:00 Gabapentin (Neurontin) 800 mg TID PO Last administered on 09/02/16 13:13; Admin Dose 800 MG; Start 08/23/16 at 21:00 Oxycodone HCl (Roxicodone) 30 mg QID PRN PO PAIN Last administered on 09/02/16 13:14; Admin Dose 30 MG; Start 08/23/16 at 18:30 Valsartan (Diovan) 320 mg DAILY PO Last administered on 09/02/16 08:35; Admin Dose 320 MG; Start 08/24/16 at 09:00 Pantoprazole (Protonix Tab) 40 mg DAILY@06 PO Last administered on 09/02/16 06: 31; Admin Dose 40 MG; Start 08/24/16 at 06:00 Ondansetron HCl (Zofran Inj) 4 mg Q6H PRN IV NAUSEA AND/OR VOMITING Last administered on 09/02/16 10:22; Admin Dose 4 MG; Start 08/23/16 at 19:00 Acetaminophen (Tylenol Tab) 650 mg Q6H PRN PO PAIN AND OR ELEVATED TEMP Last administered on 08/26/16 08:23; Admin Dose 650 MG; Start 08/23/16 at 19:00 Enoxaparin Sodium (Lovenox) 40 mg DAILY SC Last administered on 08/27/16 10:30 ; Admin Dose 40 MG; Start 08/24/16 at 09:00; Status Future Hold Hydromorphone HCl (Dilaudid) 1 mg Q4H PRN IV PAIN Last administered on 08:39; Admin Dose 1 MG; Start 08/23/16 at 19:00 Nystatin 2 ml 2 ml QID PO Last administered on 09/02/16 13:13; Admin Dose 2 ML ; Start 08/23/16 at 21:00 Dextrose/Sodium Chloride (D5-1/2ns) 1,000 ml @ 70 mls/hr [id number] IV Last administered on 09/02/16 03:00; Admin Dose 70 MLS/HR; Start 08/23/16 at 20:00 Docusate Sodium (Colace) 100 mg BID PO Last administered on 09/01/16 21:23; Admin Dose 100 MG; Start 08/23/16 at 21:00 Diphenhydramine HCl (Benadryl) 25 mg Q6H PRN IV ITCHING Last administered on 02:19; Admin Dose 25 MG; Start 08/24/16 at 02:30 Non-Formulary Medication 1 ea DAILY PO Last administered on 09/02/16 10:21; Admin Dose 1 EA; Start 08/26/16 at 09:00 Non-Formulary Medication 1 ea DAILY PO Last administered on 09/02/16 10:22; Admin Dose 1 EA; Start 08/26/16 at 09:00 Trimethoprim/ Sulfamethoxazole (Bactrim (Ds)) 1 tab DAILY PO Last administered on 09/02/16 08:36; Admin Dose 1 TAB; Start 08/31/16 at 09:00 KRISTEL LEVY September 02, 2016 14:35
[2016-09-02] MEDS ORDERED: CYCL-319 PO (14:40)
[2016-09-02] MEDS ORDERED: PANT40TA4 PO (14:40)
[2016-09-02] MEDS ORDERED: VALS160T20 PO (14:40)
[2016-09-02] MEDS ORDERED: GABA400C14 PO (14:40)
[2016-09-02] MEDS ORDERED: NYST1000 PO (14:40)
[2016-09-02] MEDS ORDERED: Trimethoprim/Sulfamethox (Ds) PO (14:40)
[2016-09-02] MEDS ORDERED: ETRA100T3 PO (14:40)
[2016-09-02] MEDS ORDERED: ATEN100T PO (14:40)
[2016-09-02] MEDS ORDERED: OXYC15TA PO (14:40)
--- NOTE | 2016-09-02 17:00 | CONS ---
Date/Time of Note Date/Time of Note DATE: 09/02/16 TIME: 16:59 Assessment/Plan Assessment/Plan Additional Assessment/Plan 1. Acute kidney injury secondary to prerenal azotemia.- cr improved with IVF hydration 2. 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 3. History of HIV and hepatitis C. 4. Hyperphosphatemia with a phosphorus 5.1. 5. History of multiple surgeries before. 6. History of complicated surgical site infection of the back due to methicillin-resistant Staphylococcus aureus. 7. History of multiple back surgeries. 8. History of human immunodeficiency virus AIDS with CD4 less than 50, and detectable viral load, according to patient. 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 will follow up s/p GI consult Consultation Date/Type/Reason Admit Date/Time Aug 25, 2016 at 12:43 Initial Consult Date 08/24/16 Type of Consultation: Nephrology Referring Provider: JOHN HOYOS 24 HR Interval Summary Free Text/Dictation no acute events, Electrolyts stable Exam/Review of Systems Vital Signs Vitals Vital Signs Date Time Temp Pulse Resp B/P Pulse Ox O2 Delivery O2 Flow Rate FiO2 09/02/16 07:36 98.5 86 18 111/76 97 08/30/16 13:18 Nasal Cannula 2.0 Intake and Output 09/01/16 09/01/16 09/02/16 15:00 23:00 07:00 Intake Total 1850 ml 1240 ml Balance 1850 ml 1240 ml Exam GENERAL: Awake, alert. HEENT: Normal. Oropharynx clear. NECK: Supple, no JVD, no lymphadenopathy. LUNGS: Clear to auscultation. No crackles, no wheezes. HEART: S1, S2, with regular rhythm, no murmur. ABDOMEN: Soft, nontender, nondistended. Bowel sounds are present. EXTREMITIES: No clubbing, cyanosis, or edema. The patient has right wrist erythema, swelling, tender to palpation. NEUROLOGICAL: Nonfocal, intact. PSYCHIATRIC: Appropriate affect and mood. Results Result Diagram: 09/01/16 0935 09/01/16 0935 Medications Medications Current Medications Atenolol (Tenormin) 100 mg DAILY PO Last administered on 09/02/16t 08:36; Admin Dose 100 MG; Start 08/24/16 at 09:00 Cyclobenzaprine HCl (Flexeril) 10 mg BID PO Last administered on 09/02/16 08:35 ; Admin Dose 10 MG; Start 08/23/16 at 21:00 Gabapentin (Neurontin) 800 mg TID PO Last administered on 09/02/16 13:13; Admin Dose 800 MG; Start 08/23/16 at 21:00 Oxycodone HCl (Roxicodone) 30 mg QID PRN PO PAIN Last administered on 09/02/16 13:14; Admin Dose 30 MG; Start 08/23/16 at 18:30 Valsartan (Diovan) 320 mg DAILY PO Last administered on 09/02/16 08:35; Admin Dose 320 MG; Start 08/24/16 at 09:00 Pantoprazole (Protonix Tab) 40 mg DAILY@06 PO Last administered on 09/02/16 06: 31; Admin Dose 40 MG; Start 08/24/16 at 06:00 Ondansetron HCl (Zofran Inj) 4 mg Q6H PRN IV NAUSEA AND/OR VOMITING Last administered on 09/02/16 10:22; Admin Dose 4 MG; Start 08/23/16 at 19:00 Acetaminophen (Tylenol Tab) 650 mg Q6H PRN PO PAIN AND OR ELEVATED TEMP Last administered on 08/26/16 08:23; Admin Dose 650 MG; Start 08/23/16 at 19:00 Enoxaparin Sodium (Lovenox) 40 mg DAILY SC Last administered on 08/27/16 10:30 ; Admin Dose 40 MG; Start 08/24/16 at 09:00; Status Future Hold Hydromorphone HCl (Dilaudid) 1 mg Q4H PRN IV PAIN Last administered on 08:39; Admin Dose 1 MG; Start 08/23/16 at 19:00 Nystatin 2 ml 2 ml QID PO Last administered on 09/02/16 13:13; Admin Dose 2 ML ; Start 08/23/16 at 21:00 Dextrose/Sodium Chloride (D5-1/2ns) 1,000 ml @ 70 mls/hr [id number] IV Last administered on 09/02/16 03:00; Admin Dose 70 MLS/HR; Start 08/23/16 at 20:00 Docusate Sodium (Colace) 100 mg BID PO Last administered on 09/01/16 21:23; Admin Dose 100 MG; Start 08/23/16 at 21:00 Diphenhydramine HCl (Benadryl) 25 mg Q6H PRN IV ITCHING Last administered on 02:19; Admin Dose 25 MG; Start 08/24/16 at 02:30 Non-Formulary Medication 1 ea DAILY PO Last administered on 09/02/16 10:21; Admin Dose 1 EA; Start 08/26/16 at 09:00 Non-Formulary Medication 1 ea DAILY PO Last administered on 09/02/16 10:22; Admin Dose 1 EA; Start 08/26/16 at 09:00 Trimethoprim/ Sulfamethoxazole (Bactrim (Ds)) 1 tab DAILY PO Last administered on 09/02/16 08:36; Admin Dose 1 TAB; Start 08/31/16 at 09:00 ELLIS EISENBERG MD September 02, 2016 17:00
--- NOTE | 2016-09-02 20:11 | CONS ---
Date/Time of Note Date/Time of Note DATE: 09/02/16 TIME: 20:10 Assessment/Plan Assessment/Plan Additional Assessment/Plan Assessment/Plan Additional Assessment/Plan Additional Assessment/Plan IMPRESSION: 1. Human immunodeficiency virus. 2. History of hepatitis C. 3. History of esophageal cancer. 4. Elevated alkaline phosphatase. 5. Anemia. 6. Cellulitis of the left lower extremity. 7. Infection of the surgical site of the right arm. 8. Failed multiple back surgeries. 9. ALLERGIC TO PENICILLIN AND RIFAMPIN. 10. Right upper quadrant pain, rule out bile duct stone 11. Ampullary stenosis, sphincterotomy done and stent deployed Plan Continue antibiotic as per ID LFT improved after the placement of stent. Follow-up in the office in 2 weeks discussed with the patient this morning and also with her friend. Consultation Date/Type/Reason Admit Date/Time Aug 25, 2016 at 12:43 Initial Consult Date 08/24/16 Type of Consultation: Nephrology Referring Provider: JOHN HOYOS 24 HR Interval Summary Constitutional: improved Exam/Review of Systems Vital Signs Vitals Vital Signs Date Time Temp Pulse Resp B/P Pulse Ox O2 Delivery O2 Flow Rate FiO2 09/02/16 07:36 98.5 86 18 111/76 97 08/30/16 13:18 Nasal Cannula 2.0 Intake and Output 09/01/16 09/01/16 09/02/16 15:00 23:00 07:00 Intake Total 1850 ml 1240 ml Balance 1850 ml 1240 ml Exam Constitutional: alert, oriented, well developed Psych: nl mood/affect, no complaints Head: atraumatic, normocephalic Eyes: EOMI, PERRL, nl conjunctiva, nl lids, nl sclera ENMT: nl external ears & nose, nl lips & teeth, nl nasal mucosa & septum Neck: non-tender, supple Respiratory: clear to auscultation, normal air movement Cardiovascular: nl pulses, regular rate and rhythm Gastrointestinal: nl liver, spleen, non-tender, soft Musculoskeletal: nl extremities to inspection, nl gait and stance Extremities: normal pulses Neurological: 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
== END 2016-09-02 18:05 | disposition home health service (06) | DRG 977 ==
LOC: E/R 10:56 → MS1 15:20 → MS2 08-25 11:22 → OBSVTOIN 08-25 12:43
PROVIDERS: ADMIT Internal Medicine; ATTEND Internal Medicine
PROC: 0F798DZ Dilation of Common Bile Duct with Intraluminal Device, Via Natural or Artificial Opening Endoscopic (ICD-10-PCS; principal; 2016-08-30 11:00)
DX: B20 Human immunodeficiency virus [HIV] disease (principal); N17.9 Acute kidney failure, unspecified; K83.1 Obstruction of bile duct; T81.4XXA Infection following a procedure, initial encounter; L03.113 Cellulitis of right upper limb; E83.39 Other disorders of phosphorus metabolism; B19.20 Unspecified viral hepatitis C without hepatic coma; Z85.01 Personal history of malignant neoplasm of esophagus; I12.9 Hypertensive chronic kidney disease with stage 1 through stage 4 chronic kidney disease, or unspecified chronic kidney disease; N18.9 Chronic kidney disease, unspecified; D64.9 Anemia, unspecified; D72.819 Decreased white blood cell count, unspecified; F31.9 Bipolar disorder, unspecified; R10.11 Right upper quadrant pain; R11.0 Nausea
CPT/HCPCS: 71010; 73590; 74181; 74330; 76705; 80048; 80053; 80076; 81003; 82150; 83036; 83540; 83605; 83690; 83735; 84100; 85025; 85610; 85651; 85730; 86140; 86360; 86701; 86703; 86704; 86706; 86709; 86803; 87040; 87070; 87081; 87340; 87522; 87536; 93005; 93971; 96374; 96375; 96376; 97116; 97530; C2617; G0378; J0330; J1170; J1200; J1650; J1720; J2270; J2370; J2405; J3370; J7030; J7042; Q9967